=== PATIENT | male | born 1940 | race Caucasian/White ===

== ENCOUNTER 2018-05-11 11:12 | Inpatient (IN) | payer MEDICARE, BC ==
--- NOTE | 2018-05-11 11:56 | EDM.PDOC ---
ED HPI GENERAL MEDICAL PROBLEM - General Chief Complaint: General Stated Complaint: [facility] Time Seen by Provider: 05/11/18 11:30 Source of Information: Reports: EMS, Family History Limitations: Reports: Language Barrier, Physical Impairment (Previous stroke significantly limits his ability to communicate) - History of Present Illness INITIAL COMMENTS - FREE TEXT/NARRATIVE: 78-year-old male with a significant cough for the past 48 hours, low-grade fevers, and weakness. He is not taking fluids well. They were giving him some cold medicine over the last 12 hours which seemed to help, but this morning he was too weak to get out of bed and they can't take care of him. His temperature at home this morning was 100.1. He is not dyspneic or laboring to breathe, no nausea or vomiting but the family thinks his abdomen looks distended. He has an indwelling Hernandez catheter and is on Cipro since the , no urine in the bag. This morning he was not only very weak but seemed "out of it". Duration: Day(s): (Symptoms for 2 days) Associated Symptoms: Reports: Confusion, Cough, Diaphoresis (Broke out in a sweat for a period of time this morning), Fever/Chills, Malaise, Weakness - Related Data Allergies Allergy/AdvReac Type Severity Reaction Status Date / Time Sulfa (Sulfonamide Allergy Other Verified 05/11/18 11:28 Antibiotics) Home Meds: Home Meds Acetaminophen/HYDROcodone [[place] 325-5 MG] 1 tab PO ASDIRECTED PRN 05/11/18 [ History] Aspirin [Halfprin] 81 mg PO DAILY 05/11/18 [History] Ciprofloxacin HCl [Cipro] 500 mg PO ASDIRECTED 05/11/18 [History] Losartan [Cozaar] 50 mg PO DAILY 05/11/18 [History] Polyethylene Glycol 3350 [MiraLAX] 1 pack PO ASDIRECTED PRN 05/11/18 [History] Pravastatin [Pravachol] 40 mg PO DAILY 05/11/18 [History] Timolol [Betimol 0.5% Ophth Soln] 1 drop EYEBOTH DAILY 05/11/18 [History] amLODIPine Besylate [Amlodipine Besylate] 10 mg PO DAILY 05/11/18 [History] hydroCHLOROthiazide [Hydrochlorothiazide] 25 mg PO DAILY 05/11/18 [History] Past Medical History HEENT History: Reports: Glaucoma, Impaired Vision Cardiovascular History: Reports: Hypertension Gastrointestinal History: Reports: None Genitourinary History: Reports: Prostate Disorder Other Genitourinary History: 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, Musculoskeletal History: Reports: Arthritis Neurological History: Reports: TIA, Other (See Below) Other Neuro History: 2017- stroke Psychiatric History: Reports: Dementia Endocrine/Metabolic History: Reports: Obesity/BMI 30+ - Infectious Disease History Infectious Disease History: Reports: Chicken Pox - Past Surgical History Head Surgeries/Procedures: Reports: None HEENT Surgical History: Reports: None Cardiovascular Surgical History: Reports: None GI Surgical History: Reports: Cholecystectomy Endocrine Surgical History: Reports: None Neurological Surgical History: Reports: None Musculoskeletal Surgical History: Reports: Hip Replacement Dermatological Surgical History: Reports: None Social & Family History - Caffeine Use Caffeine Use: Reports: None - Recreational Drug Use Recreational Drug Use: No ED ROS GENERAL - Review of Systems Review Of Systems: See Below Constitutional: Reports: Fever, Chills, Malaise, Weakness, Decreased Appetite HEENT: Reports: Rhinitis. Denies: Throat Pain, Vision Change Respiratory: Reports: Cough. Denies: Shortness of Breath Cardiovascular: Denies: Chest Pain GI/Abdominal: Denies: Abdominal Pain, Nausea, Vomiting : Reports: Other (Decreased urine output) Skin: Reports: Diaphoresis Neurological: Reports: Other (Significant right-sided weakness and expressive aphasia due to previous stroke) ED EXAM, GENERAL - Physical Exam Exam: See Below Exam Limited By: No Limitations General Appearance: Alert, No Apparent Distress Eye Exam: Bilateral Eye: EOMI Throat/Mouth: Normal Inspection Head: Atraumatic Neck: Supple Respiratory/Chest: No Respiratory Distress, Rales (Bilateral basilar rales heard posteriorly, a few scattered expiratory wheezes) Cardiovascular: Regular Rate, Rhythm GI/Abdominal: Normal Bowel Sounds, Soft, Non-Tender Neurological: Alert Psychiatric: Normal Affect, Normal Mood Skin Exam: Warm, Dry. No: Diaphoretic Course - Vital Signs Last Recorded V/S: Last Vital Signs Temp 97.3 F 05/11/18 14:08 Pulse 72 05/11/18 14:25 Resp 16 05/11/18 14:25 BP 91/54 L 05/11/18 14:25 Pulse Ox 93 L 05/11/18 14:08 - Orders/Labs/Meds Orders: Active Orders 24 hr Category Date Time Status UA W/MICROSCOPIC [URIN] Urgent Lab 05/11/18 11:49 Ordered Medication Orders Acetaminophen (Tylenol) 650 mg PO Q4H PRN PRN Reason: Pain (Mild 1-3)/fever Hydrocodone Bitart/Acetaminophen ([place] 325-5 Mg) 1 tab PO Q4H PRN PRN Reason: Pain Albuterol (Proventil Neb Soln) 2.5 mg NEB Q4H PRN PRN Reason: Shortness Of Breath/wheezing Aspirin (Halfprin) 81 mg PO DAILY [facility] Enoxaparin Sodium (Lovenox) 40 mg SUBCUT Q24H [facility] Last Admin: 05/11/18 16:16 Dose: 40 mg Sodium Chloride (Normal Saline) 1,000 mls @ 125 mls/hr IV ASDIRECTED [facility] Last Admin: 05/11/18 14:22 Dose: 125 mls/hr Losartan Potassium (Cozaar) 50 mg PO DAILY [facility] Methylprednisolone Sodium Succinate (Solu-Medrol) 40 mg IVPUSH Q8H [facility] Last Admin: 05/11/18 14:20 Dose: 40 mg Ondansetron HCl (Zofran) 4 mg IV Q4H PRN PRN Reason: Nausea/Vomiting Oseltamivir Phosphate (Tamiflu) 75 mg PO BID [facility] Last Admin: 05/11/18 13:12 Dose: 75 mg Polyethylene Glycol (Miralax) 17 gm PO DAILY PRN PRN Reason: Constipation Pravastatin Sodium (Pravachol) 40 mg PO DAILY [facility] Sodium Chloride (Saline Flush) 10 ml FLUSH ASDIRECTED PRN PRN Reason: Keep Vein Open Timolol Maleate (Timoptic 0.5% Ophth Soln) 0 ml EYEBOTH DAILY [facility] Labs: Laboratory Tests 05/11/18 05/11/18 Range/Units 11:49 11:49 WBC 7.3 (4.5-11.0) K/uL RBC 5.95 H (4.30-5.90) M/uL Hgb 17.1 H (12.0-15.0) g/dL Hct 49.2 (40.0-54.0) % MCV 83 (80-98) fL MCH 29 (27-31) pg MCHC 35 (32-36) % Plt Count 97 L (150-400) K/uL Neut % (Auto) 77 H (36-66) % Lymph % (Auto) 12 L (24-44) % [place] % (Auto) 11 H (2-6) % Eos % (Auto) 0 L (2-4) % Baso % (Auto) 0 (0-1) % Sodium 140 (140-148) mmol/L Potassium 3.5 L (3.6-5.2) mmol/L Chloride 101 (100-108) mmol/L Carbon Dioxide 24 (21-32) mmol/L Anion Gap 18.5 H (5.0-14.0) mmol/L BUN 21 H (7-18) mg/dL Creatinine 1.2 (0.8-1.3) mg/dL Est Cr Clr Drug Dosing 45.78 mL/min Estimated GFR (MDRD) 59 L (>60) Glucose 143 H (74-106) mg/dL Calcium 8.8 (8.5-10.1) mg/dL Total Bilirubin 0.6 (0.2-1.0) mg/dL AST 40 H (15-37) U/L ALT 45 (12-78) U/L Alkaline Phosphatase 61 (46-116) U/L Total Protein 7.2 (6.4-8.2) g/dL Albumin 3.1 L (3.4-5.0) g/dL Globulin 4.1 H (2.3-3.5) g/dL Albumin/Globulin Ratio 0.8 L (1.2-2.2) Meds: Medications Generic Name Dose Route Start Last Admin Trade Name Freq PRN Reason Stop Dose Admin Acetaminophen 650 mg 05/11/18 14:00 Tylenol PO Q4H PRN Pain (Mild 1-3)/fever Hydrocodone Bitart/Acetaminophen 1 tab 05/11/18 14:00 [place] 325-5 Mg PO Q4H PRN Pain Albuterol 2.5 mg 05/11/18 14:00 Proventil Neb Soln NEB Q4H PRN Shortness Of Breath/wheezing Aspirin 81 mg 05/12/18 09:00 Halfprin PO DAILY JOHN Enoxaparin Sodium 40 mg 05/11/18 16:00 05/11/18 16:16 Lovenox SUBCUT 40 mg Q24H JOHN Administration Sodium Chloride 1,000 mls @ 125 mls/hr 05/11/18 14:00 05/11/18 14:22 Normal Saline IV 125 mls/hr ASDIRECTED JOHN Administration Losartan Potassium 50 mg 05/12/18 09:00 Cozaar PO DAILY JOHN Methylprednisolone Sodium Succinate 40 mg 05/11/18 14:00 05/11/18 14:20 Solu-Medrol IVPUSH 40 mg Q8H JOHN Administration Ondansetron HCl 4 mg 05/11/18 14:00 Zofran IV Q4H PRN Nausea/Vomiting Oseltamivir Phosphate 75 mg 05/11/18 13:00 05/11/18 13:12 Tamiflu PO 75 mg BID JOHN Administration Polyethylene Glycol 17 gm 05/11/18 14:00 Miralax PO DAILY PRN Constipation Pravastatin Sodium 40 mg 05/12/18 09:00 Pravachol PO DAILY JOHN Sodium Chloride 10 ml 05/11/18 14:00 Saline Flush FLUSH ASDIRECTED PRN Keep Vein Open Timolol Maleate 0 ml 05/12/18 09:00 Timoptic 0.5% Ophth Soln EYEBOTH DAILY JOHN Discontinued Medications Generic Name Dose Route Start Last Admin Trade Name Freq PRN Reason Stop Dose Admin Sodium Chloride 1,000 mls @ 1,000 mls/hr 05/11/18 12:00 05/11/18 12:09 Normal Saline IV 1,000 mls/hr ASDIRECTED JOHN Administration - Re-Assessments/Exams Free Text/Narrative Re-Assessment/Exam: 05/11/18 11:55 Patient will be given 1 L normal saline, a portable chest x-ray will be obtained along with a CBC CMP and UA when he starts making urine. 05/11/18 12:28 Influenza antigens were obtained, patient was positive for influenza A. Chest x- ray was negative other than some mild cardiomegaly. 05/11/18 12:50 Rest of the labs returned other than the UA which she has not produced at this point. White count was normal, electrolytes reasonable. BUN is slightly elevated and GFR is mildly decreased, possibly from dehydration. I discussed his condition with the family and ultimately with Dr. Mancini of the hospitalist service, he'll be admitted for symptom treatment and strengthening as well as fluids. Departure - Departure Time of Disposition: 13:30 Disposition: Admitted As Inpatient 66 Condition: Fair Clinical Impression: Influenza A, Weakness, Dehydration, mild - Discharge Information - My Orders Last 24 Hours: My Active Orders 05/11/18 11:49 UA W/MICROSCOPIC [URIN] Urgent - Assessment/Plan Last 24 Hours: My Active Orders 05/11/18 11:49 UA W/MICROSCOPIC [URIN] Urgent
[2018-05-11] MEDS ORDERED: Sodium Chloride 0.9% 1,000 ML IV SCH (12:00)
--- NOTE | 2018-05-11 12:09 | CRLCR ---
INDICATION: Cough, fever, weakness COMPARISON: None available. FINDINGS: An erect single view of the chest was obtained at 1158 hours. The lungs are clear despite shallow inspiration. No focal or diffuse infiltrates are present. The heart is mildly enlarged. There is mild tortuosity of the descending thoracic aorta. The osseous structures are normal in appearance for the patient`s age. IMPRESSION: No active disease seen in the chest. Mild cardiomegaly. Dictated by Fabian Medina MD @ May 11 2018 12:06PM Signed by Dr. Fabian Medina @ May 11 2018 12:07PM
--- NOTE | 2018-05-11 12:52 | PCM.HP ---
H&P History of Present Illness - General Date of Service: 05/11/18 Admit Problem/Dx: Admission Diagnosis/Problem Admission Diagnosis/Problem Influenza A with respiratory manifestations Source of Information: Family, Provider, RN Notes Reviewed History Limitations: Reports: Other (Expressive a fascia secondary to CVA) - History of Present Illness Initial Comments - Free Text/Narative: Mr. Monroy is a 78-year-old gentleman who is admitted through the emergency department with weakness, shortness of breath, cough, dehydration, secondary to influenza A. He has not felt well over the past 24 hours with progressive symptoms as noted also has been found to have fever and decrease in appetite. On evaluation in the emergency department white blood cell count is normal and chest x-ray shows no obvious infiltrates. Influenza A antigen was found to be positive. Most of history was obtained from the family, patient is unable to provide significant information concerning symptoms or review of systems because of his severe expressive aphasia. - Related Data Allergies/Adverse Reactions: Allergies Allergy/AdvReac Type Severity Reaction Status Date / Time Sulfa (Sulfonamide Allergy Other Verified 05/11/18 11:28 Antibiotics) Home Medications: Home Meds Acetaminophen/HYDROcodone [[place] 325-5 MG] 1 tab PO ASDIRECTED PRN 05/11/18 [ History] Aspirin [Halfprin] 81 mg PO DAILY 05/11/18 [History] Ciprofloxacin HCl [Cipro] 500 mg PO ASDIRECTED 05/11/18 [History] Losartan [Cozaar] 50 mg PO DAILY 05/11/18 [History] Polyethylene Glycol 3350 [MiraLAX] 1 pack PO ASDIRECTED PRN 05/11/18 [History] Pravastatin [Pravachol] 40 mg PO DAILY 05/11/18 [History] Timolol [Betimol 0.5% Ophth Soln] 1 drop EYEBOTH DAILY 05/11/18 [History] amLODIPine Besylate [Amlodipine Besylate] 10 mg PO DAILY 05/11/18 [History] hydroCHLOROthiazide [Hydrochlorothiazide] 25 mg PO DAILY 05/11/18 [History] Past Medical History HEENT History: Reports: Glaucoma, Impaired Vision Cardiovascular History: Reports: Hypertension Gastrointestinal History: Reports: None Genitourinary History: Reports: Prostate Disorder Other Genitourinary History: 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, Musculoskeletal History: Reports: Arthritis Neurological History: Reports: TIA, Other (See Below) Other Neuro History: 2017- stroke Psychiatric History: Reports: Dementia Endocrine/Metabolic History: Reports: Obesity/BMI 30+ - Infectious Disease History Infectious Disease History: Reports: Chicken Pox - Past Surgical History Head Surgeries/Procedures: Reports: None HEENT Surgical History: Reports: None Cardiovascular Surgical History: Reports: None GI Surgical History: Reports: Cholecystectomy Endocrine Surgical History: Reports: None Neurological Surgical History: Reports: None Musculoskeletal Surgical History: Reports: Hip Replacement Dermatological Surgical History: Reports: None Social & Family History - Caffeine Use Caffeine Use: Reports: None - Recreational Drug Use Recreational Drug Use: No H&P Review of Systems - Review of Systems: Review Of Systems: Unable To Obtain General: Reports: ROS unobtainable (Severe expressive aphasia) Exam - Exam Exam: See Below - Vital Signs Vital Signs: Last Vital Signs Temp 97.2 F 05/11/18 11:18 Pulse 86 05/11/18 11:18 Resp 16 05/11/18 11:18 BP 94/55 L 05/11/18 11:18 Pulse Ox 94 L 05/11/18 11:18 Weight: 265 lb - Exam Quality Assessment: Urinary Catheter (Present on admission), DVT Prophylaxis General: Alert, Oriented, Cooperative, Moderate Distress HEENT: Conjunctiva Clear, Hearing Intact, Normal Nasal Septum, Posterior Pharynx Clear, Pupils Equal Neck: Supple, Trachea Midline, +2 Carotid Pulse wo Bruit Lungs: Normal Respiratory Effort, Rhonchi, Wheezing. No: Crackles, Rales, Rub, Stridor Cardiovascular: Regular Rate, Regular Rhythm, Normal S1, Normal S2. No: Systolic Murmur, Diastolic Murmur GI/Abdominal Exam: Soft, Non-Tender, No Organomegaly, No Distention Back Exam: Normal Inspection, Full Range of Motion Extremities: Non-Tender, No Pedal Edema Skin: Warm, Dry, Intact Neurological: Cranial Nerves Intact, Normal Tone, Sensation Intact. No: Normal Speech Neuro Extensive - Mental Status: Alert, Normal Mood/Affect - Patient Data Lab Results Last 24 hrs: Laboratory Results - last 24 hr 05/11/18 05/11/18 Range/Units 11:49 11:49 WBC 7.3 (4.5-11.0) K/uL RBC 5.95 H (4.30-5.90) M/uL Hgb 17.1 H (12.0-15.0) g/dL Hct 49.2 (40.0-54.0) % MCV 83 (80-98) fL MCH 29 (27-31) pg MCHC 35 (32-36) % Plt Count 97 L (150-400) K/uL Neut % (Auto) 77 H (36-66) % Lymph % (Auto) 12 L (24-44) % [place] % (Auto) 11 H (2-6) % Eos % (Auto) 0 L (2-4) % Baso % (Auto) 0 (0-1) % Sodium 140 (140-148) mmol/L Potassium 3.5 L (3.6-5.2) mmol/L Chloride 101 (100-108) mmol/L Carbon Dioxide 24 (21-32) mmol/L Anion Gap 18.5 H (5.0-14.0) mmol/L BUN 21 H (7-18) mg/dL Creatinine 1.2 (0.8-1.3) mg/dL Est Cr Clr Drug Dosing 45.78 mL/min Estimated GFR (MDRD) 59 L (>60) Glucose 143 H (74-106) mg/dL Calcium 8.8 (8.5-10.1) mg/dL Total Bilirubin 0.6 (0.2-1.0) mg/dL AST 40 H (15-37) U/L ALT 45 (12-78) U/L Alkaline Phosphatase 61 (46-116) U/L Total Protein 7.2 (6.4-8.2) g/dL Albumin 3.1 L (3.4-5.0) g/dL Globulin 4.1 H (2.3-3.5) g/dL Albumin/Globulin Ratio 0.8 L (1.2-2.2) Result Diagrams: 05/11/18 11:49 05/11/18 11:49 Ady Results Last 24 hrs: Microbiology 05/11/18 12:13 Influenza Type A Antigen Screen - Final Nasal Aspirate, Unspecified Positive Influenza A Ag Influenza Type B Antigen Screen - Final NEGATIVE INFLUENZA B VIRUS AG *Q Meaningful Use (ADM) - VTE Risk Assess *Q Each Risk Factor Represents 1 Point: Obesity ( BMI > 25 kg/m2) Total Score 1 Point Risk Factors: 1 Each Risk Factor Represents 2 Points: None Total Score 2 Point Risk Factors: 0 Each Risk Factor Represents 3 Points: Age 75 Years or Greater Total Score 3 Point Risk Factors: 3 Each Risk Factor Represents 5 Points: None Total Score 5 Point Risk Factors: 0 Venous Thromboembolism Risk Factor Score *Q: 4 Problem List Initiated/Reviewed/Updated: Yes Orders Last 24hrs: Active Orders 24 hr Category Date Time Status Patient Status Manage Transfer [TRANSFER] Routine ADT 05/11/18 12:47 Active UA W/MICROSCOPIC [URIN] Urgent Lab 05/11/18 11:49 Ordered Oseltamivir [Tamiflu] Med 05/11/18 13:00 Ordered 75 mg PO BID Sodium Chloride 0.9% [Normal Saline] 1,000 ml Med 05/11/18 12:00 Active IV ASDIRECTED Resuscitation Status Routine Resus Stat 05/11/18 12:48 Ordered Medication Orders Sodium Chloride (Normal Saline) 1,000 mls @ 1,000 mls/hr IV ASDIRECTED JOHN Last Admin: 05/11/18 12:09 Dose: 1,000 mls/hr Oseltamivir Phosphate (Tamiflu) 75 mg PO BID [facility] Assessment/Plan Comment:: ASSESSMENT AND PLAN INFLUENZA A-marked weakness with fever cough and shortness of breath. -IV fluids for hydration -Tylenol as needed for fever -Tamiflu 750 mg by mouth twice a day 5 days -Physical therapy consult -Nebulized albuterol as needed -Solu-Medrol 40 mg IV every 8 hours HISTORY OF CVA-residual expressive aphasia and left-sided weakness INDWELLING HERNANDEZ CATHETER-present on admission -Urinalysis pending MAINTENANCE ISSUES -DVT prophylaxis; Lovenox 40 mg subcutaneous daily -GI prophylaxis; not indicated -Hernandez catheter; chronic indwelling catheter -Nutrition; regular diet -Nicotine dependence; not required CODE STATUS-FULL CODE ADMISSION STATUS-patient will be admitted to inpatient status, expect at least a 2 night hospital stay for evaluation and management of problems as outlined above. At the time of this admission I do not reasonably expected evaluation and management of this problem will require more than a 96 hour hospital stay. DISPOSITION-anticipate discharge to home after the hospital stay. PRIMARY CARE PROVIDER-the [facility]
[2018-05-11] MEDS: Oseltamivir 75 MG Cap PO SCH ×2 (13:12→21:36)
[2018-05-11] MEDS ORDERED: Albuterol 0.083% 2.5 MG/3 ML Neb Soln NEB PRN (14:00)
[2018-05-11] MEDS ORDERED: Acetaminophen 325 MG Tab PO PRN (14:00)
[2018-05-11] MEDS ORDERED: Sodium Chloride 0.9% 10 ML Syringe FLUSH PRN (14:00)
[2018-05-11] MEDS ORDERED: Ondansetron 4 MG/2 ML SDV IV PRN (14:00)
[2018-05-11] MEDS ORDERED: Polyethylene Glycol 3350 Powder 17 GM Packet PO PRN (14:00)
[2018-05-11] MEDS ORDERED: Acetaminophen/HYDROcodone 325-5 MG Tab PO PRN (14:00)
[2018-05-11] MEDS: methylPREDNISolone Sodium Succinate 40 MG/1 ML SDV IVPUSH SCH ×2 (14:20→21:36)
[2018-05-11] MEDS: Sodium Chloride 0.9% 1,000 ML IV SCH ×2 (14:22→21:37)
[2018-05-11] MEDS ORDERED: Enoxaparin 40 MG/0.4 ML Syringe SUBCUT SCH (16:00)
[2018-05-12] MEDS: methylPREDNISolone Sodium Succinate 40 MG/1 ML SDV IVPUSH SCH (05:22)
[2018-05-12] MEDS: Sodium Chloride 0.9% 1,000 ML IV SCH (05:22)
[2018-05-12] MEDS ORDERED: Potassium Chloride 20 MEQ, Lidocaine 1% 2 ML in Sodium Chloride 0.9% 100 ML IV ONE (08:15)
[2018-05-12] MEDS: Oseltamivir 75 MG Cap PO SCH (08:53)
[2018-05-12] MEDS ORDERED: Aspirin 81 MG Tab.EC PO SCH (09:00)
[2018-05-12] MEDS ORDERED: Pravastatin 20 MG Tab PO SCH (09:00)
[2018-05-12] MEDS ORDERED: Timolol Maleate 0.5% Ophth Soln 5 ML Bottle EYEBOTH SCH (09:00)
[2018-05-12] MEDS ORDERED: Losartan 50 MG Tab PO SCH (09:00)
[2018-05-12] MEDS ORDERED: Potassium Chloride 20 MEQ Tab.ER PO ONE (10:00)
[2018-05-12] MEDS ORDERED: Magnesium Sulfate/Water 2 GM in Premix Bag 1 BAG IV SCH (10:00)
[2018-05-12] MEDS ORDERED: Magnesium Oxide 400 MG Tab PO SCH (10:00)
--- NOTE | 2018-05-12 10:01 | PCM.PN ---
- General Info Date of Service: 05/12/18 Subjective Update: Mr. Monroy appears improved today compared to yesterday, sitting up in the chair and more interactive. Speech remains minimal because of his long-standing expressive aphasia. He is able to respond to questions with simple answers. Denies significant shortness of breath this morning, cough appears to be improved. Vital signs have been stable and he has remained afebrile. Functional Status: Reports: Tolerating Diet - Review of Systems General: Reports: Weakness. Denies: Fever, Chills Pulmonary: Reports: No Symptoms Cardiovascular: Reports: No Symptoms Gastrointestinal: Reports: No Symptoms - Patient Data Vitals - Most Recent: Last Vital Signs Temp 97.5 F 05/12/18 08:03 Pulse 73 05/12/18 08:03 Resp 16 05/12/18 08:03 BP 156/77 H 05/12/18 08:53 Pulse Ox 91 L 05/12/18 08:03 Weight - Most Recent: 267 lb 8 oz I&O - Last 24 Hours: Intake & Output 05/11/18 05/12/18 05/12/18 22:59 06:59 14:59 Intake Total 1894 Output Total 1250 600 Balance -1250 1294 Lab Results Last 24 Hours: Laboratory Results - last 24 hr 05/11/18 05/11/18 05/11/18 Range/Units 11:49 11:49 16:18 WBC 7.3 (4.5-11.0) K/uL RBC 5.95 H (4.30-5.90) M/uL Hgb 17.1 H (12.0-15.0) g/dL Hct 49.2 (40.0-54.0) % MCV 83 (80-98) fL MCH 29 (27-31) pg MCHC 35 (32-36) % Plt Count 97 L (150-400) K/uL Neut % (Auto) 77 H (36-66) % Lymph % (Auto) 12 L (24-44) % [place] % (Auto) 11 H (2-6) % Eos % (Auto) 0 L (2-4) % Baso % (Auto) 0 (0-1) % Sodium 140 (140-148) mmol/L Potassium 3.5 L (3.6-5.2) mmol/L Chloride 101 (100-108) mmol/L Carbon Dioxide 24 (21-32) mmol/L Anion Gap 18.5 H (5.0-14.0) mmol/L BUN 21 H (7-18) mg/dL Creatinine 1.2 (0.8-1.3) mg/dL Est Cr Clr Drug Dosing 45.78 mL/min Estimated GFR (MDRD) 59 L (>60) Glucose 143 H (74-106) mg/dL Calcium 8.8 (8.5-10.1) mg/dL Magnesium (1.8-2.4) mg/dL Total Bilirubin 0.6 (0.2-1.0) mg/dL AST 40 H (15-37) U/L ALT 45 (12-78) U/L Alkaline Phosphatase 61 (46-116) U/L Total Protein 7.2 (6.4-8.2) g/dL Albumin 3.1 L (3.4-5.0) g/dL Globulin 4.1 H (2.3-3.5) g/dL Albumin/Globulin Ratio 0.8 L (1.2-2.2) Urine Color Yellow Urine Appearance Clear Urine pH 5.0 (4.5-8.0) Ur Specific [place] 1.015 (1.008-1.030) Urine Protein Negative (NEGATIVE) mg/dL Urine Glucose (UA) Normal (NEGATIVE) mg/dL Urine Ketones Negative (NEGATIVE) mg/dL Urine Occult Blood Large (NEGATIVE) Urine Nitrite Negative (NEGAITVE) Urine Bilirubin Negative (NEGATIVE) Urine Urobilinogen Normal (NORMAL) mg/dL Ur Leukocyte Esterase Negative (NEGATIVE) Urine RBC 5-10 H (0-5) Urine WBC 0-5 (0-5) Ur Epithelial Cells Not seen Amorphous Sediment Not seen Urine Bacteria Many Urine Mucus Not seen 05/12/18 05/12/18 Range/Units 05:48 05:48 WBC 5.5 (4.5-11.0) K/uL RBC 5.92 H (4.30-5.90) M/uL Hgb 16.4 H (12.0-15.0) g/dL Hct 49.1 (40.0-54.0) % MCV 83 (80-98) fL MCH 28 (27-31) pg MCHC 33 (32-36) % Plt Count 165 (150-400) K/uL Neut % (Auto) 85 H (36-66) % Lymph % (Auto) 12 L (24-44) % [place] % (Auto) 3 (2-6) % Eos % (Auto) 0 L (2-4) % Baso % (Auto) 0 (0-1) % Sodium 141 (140-148) mmol/L Potassium 3.3 L (3.6-5.2) mmol/L Chloride 104 (100-108) mmol/L Carbon Dioxide 24 (21-32) mmol/L Anion Gap 16.3 H (5.0-14.0) mmol/L BUN 19 H (7-18) mg/dL Creatinine 0.9 (0.8-1.3) mg/dL Est Cr Clr Drug Dosing 63.09 mL/min Estimated GFR (MDRD) > 60 (>60) Glucose 179 H (74-106) mg/dL Calcium 8.5 (8.5-10.1) mg/dL Magnesium 1.5 L (1.8-2.4) mg/dL Total Bilirubin (0.2-1.0) mg/dL AST (15-37) U/L ALT (12-78) U/L Alkaline Phosphatase (46-116) U/L Total Protein (6.4-8.2) g/dL Albumin (3.4-5.0) g/dL Globulin (2.3-3.5) g/dL Albumin/Globulin Ratio (1.2-2.2) Urine Color Urine Appearance Urine pH (4.5-8.0) Ur Specific [place] (1.008-1.030) Urine Protein (NEGATIVE) mg/dL Urine Glucose (UA) (NEGATIVE) mg/dL Urine Ketones (NEGATIVE) mg/dL Urine Occult Blood (NEGATIVE) Urine Nitrite (NEGAITVE) Urine Bilirubin (NEGATIVE) Urine Urobilinogen (NORMAL) mg/dL Ur Leukocyte Esterase (NEGATIVE) Urine RBC (0-5) Urine WBC (0-5) Ur Epithelial Cells Amorphous Sediment Urine Bacteria Urine Mucus Ady Results Last 24 Hours: Microbiology 05/11/18 12:13 Influenza Type A Antigen Screen - Final Nasal Aspirate, Unspecified Positive Influenza A Ag Influenza Type B Antigen Screen - Final NEGATIVE INFLUENZA B VIRUS AG Med Orders - Current: Current Medications Acetaminophen (Tylenol) 650 mg PO Q4H PRN PRN Reason: Pain (Mild 1-3)/fever Hydrocodone Bitart/Acetaminophen ([place] 325-5 Mg) 1 tab PO Q4H PRN PRN Reason: Pain Albuterol (Proventil Neb Soln) 2.5 mg NEB Q4H PRN PRN Reason: Shortness Of Breath/wheezing Aspirin (Halfprin) 81 mg PO DAILY [facility] Last Admin: 05/12/18 08:53 Dose: 81 mg Enoxaparin Sodium (Lovenox) 40 mg SUBCUT Q24H [facility] Last Admin: 05/11/18 16:16 Dose: 40 mg Magnesium Sulfate 2 gm/ Premix 50 mls @ 25 mls/hr IV Q6H [facility] Stop: 05/12/18 17:59 Potassium Chloride 20 meq/Lidocaine HCl 2 ml/ Sodium Chloride 112 mls @ 56 mls/ hr IV Q2H [facility] Stop: 05/12/18 13:59 Losartan Potassium (Cozaar) 50 mg PO DAILY [facility] Last Admin: 05/12/18 08:53 Dose: 50 mg Magnesium Oxide (Magnesium Oxide) 400 mg PO BID [facility] Ondansetron HCl (Zofran) 4 mg IV Q4H PRN PRN Reason: Nausea/Vomiting Oseltamivir Phosphate (Tamiflu) 75 mg PO BID [facility] Stop: 05/14/18 09:01 Last Admin: 05/12/18 08:53 Dose: 75 mg Polyethylene Glycol (Miralax) 17 gm PO DAILY PRN PRN Reason: Constipation Potassium Chloride (Klor-Con M20) 40 meq PO ONETIME ONE Stop: 05/12/18 10:01 Pravastatin Sodium (Pravachol) 40 mg PO DAILY [facility] Last Admin: 05/12/18 08:52 Dose: 40 mg Sodium Chloride (Saline Flush) 10 ml FLUSH ASDIRECTED PRN PRN Reason: Keep Vein Open Timolol Maleate (Timoptic 0.5% Ophth Soln) 0 ml EYEBOTH DAILY [facility] Last Admin: 05/12/18 08:53 Dose: 1 each Discontinued Medications Sodium Chloride (Normal Saline) 1,000 mls @ 1,000 mls/hr IV ASDIRECTED [facility] Last Admin: 05/11/18 12:09 Dose: 1,000 mls/hr Sodium Chloride (Normal Saline) 1,000 mls @ 125 mls/hr IV ASDIRECTED [facility] Last Admin: 05/12/18 05:22 Dose: 125 mls/hr Potassium Chloride 20 meq/Lidocaine HCl 2 ml/ Sodium Chloride 112 mls @ 28 mls/ hr IV ONETIME ONE Stop: 05/12/18 12:14 Methylprednisolone Sodium Succinate (Solu-Medrol) 40 mg IVPUSH Q8H [facility] Last Admin: 05/12/18 05:22 Dose: 40 mg - Exam Quality Assessment: DVT Prophylaxis General: Alert, Cooperative, No Acute Distress Lungs: Clear to Auscultation, Normal Respiratory Effort Cardiovascular: Regular Rate, Regular Rhythm, Murmurs GI/Abdominal Exam: Soft, Non-Tender, No Organomegaly, No Distention Extremities: Non-Tender, Pedal Edema - Problem List Review Problem List Initiated/Reviewed/Updated: Yes - My Orders Last 24 Hours: My Active Orders 05/11/18 12:48 Resuscitation Status Routine 05/11/18 13:00 Oseltamivir [Tamiflu] 75 mg PO BID 05/11/18 13:37 PT Evaluation and Treatment [CONS] Routine 05/11/18 14:00 Patient Status [ADT] Routine Ambulate [RC] QID Height and Weight [RC] DAILY Intake and Output [RC] QSHIFT Notify Provider Vital Signs [RC] ASDIRECTED Oxygen Therapy [RC] .PRN Peripheral IV Care [RC] QSHIFT RT Aerosol Therapy [RC] ASDIRECTED Up With Assistance [RC] ASDIRECTED Up to Chair [RC] QID VTE/DVT Education [RC] Per Unit Routine Vital Signs [RC] Q4H Acetaminophen [Tylenol] 650 mg PO Q4H PRN Acetaminophen/HYDROcodone [[place] 325-5 MG] 1 tab PO Q4H PRN Albuterol [Proventil Neb Soln] 2.5 mg NEB Q4H PRN Ondansetron [Zofran] 4 mg IV Q4H PRN Polyethylene Glycol 3350 [MiraLAX] 17 gm PO DAILY PRN Sodium Chloride 0.9% [Saline Flush] 10 ml FLUSH ASDIRECTED PRN Peripheral IV Insertion Adult [OM.PC] Routine 05/11/18 16:00 Enoxaparin [Lovenox] 40 mg SUBCUT Q24H 05/11/18 Lunch Regular Diet [DIET] 05/12/18 09:00 Aspirin [Halfprin] 81 mg PO DAILY Losartan [Cozaar] 50 mg PO DAILY Pravastatin [Pravachol] 40 mg PO DAILY Timolol Maleate [Timoptic 0.5% Ophth Soln] 0 ml EYEBOTH DAILY 05/12/18 09:57 Convert IV to Saline Lock [OM.PC] Routine 05/12/18 10:00 Magnesium Oxide 400 mg PO BID Magnesium Sulfate/Water [Magnesium Sulfate 2 GM in Water 50 ML] 2 gm Premix Bag 1 bag IV Q6H Potassium Chloride 20 meq Lidocaine 1% [Xylocaine 1%] 2 ml Sodium Chloride 0.9 % [Normal Saline] 100 ml IV Q2H Potassium Chloride [Klor-Con M20] 40 meq PO ONETIME ONE 05/13/18 05:00 BASIC METABOLIC PANEL,BMP [CHEM] Timed MAGNESIUM [CHEM] Timed - Plan Plan:: ASSESSMENT AND PLAN INFLUENZA A-marked weakness with fever cough and shortness of breath. Improved since admission with hydration, sitting in chair and is more interactive today -Saline lock IV -Tylenol as needed for fever -Tamiflu 750 mg by mouth twice a day 5 days -Physical therapy consult and follow-up -Nebulized albuterol as needed -Discontinue IV Solu-Medrol HISTORY OF CVA-residual expressive aphasia and left-sided weakness INDWELLING ESCUDERO CATHETER-present on admission. Urinalysis clear showing no evidence of current infection MAINTENANCE ISSUES -DVT prophylaxis; Lovenox 40 mg subcutaneous daily -GI prophylaxis; not indicated -Escudero catheter; chronic indwelling catheter -Nutrition; regular diet -Nicotine dependence; not required CODE STATUS-FULL CODE ADMISSION STATUS-patient will be admitted to inpatient status, expect at least a 2 night hospital stay for evaluation and management of problems as outlined above. At the time of this admission I do not reasonably expected evaluation and management of this problem will require more than a 96 hour hospital stay. DISPOSITION-anticipate discharge to home tomorrow PRIMARY CARE PROVIDER-[facility]
[2018-05-12] MEDS: Potassium Chloride 20 MEQ, Lidocaine 1% 2 ML in Sodium Chloride 0.9% 100 ML IV SCH ×2 (10:47→13:09)
--- NOTE | 2018-05-12 14:04 | PCM.DCSUM1 ---
Discharge Summary - Hospital Course Brief History: Mr. Monroy is a 78-year-old gentleman who was admitted through the emergency department with weakness and dehydration secondary to influenza A. - Discharge Data Discharge Date: 05/12/18 Discharge Disposition: Home, Self-Care 01 Condition: Fair - Discharge Diagnosis/Problem(s) (1) Influenza A SNOMED Code(s): 564091950 ICD Code: J10.1 - FLU DUE TO OTH IDENT INFLUENZA VIRUS W OTH RESP MANIFEST Status: Acute Current Visit: Yes (2) Weakness SNOMED Code(s): 35980572 ICD Code: R53.1 - WEAKNESS Status: Acute Current Visit: Yes (3) Dehydration, mild SNOMED Code(s): 9270516961114 ICD Code: E86.0 - DEHYDRATION Status: Acute Current Visit: Yes - Patient Summary/Data Consults: Consultations 05/11/18 13:37 PT Evaluation and Treatment [CONS] Routine Please Evaluate and Treat. PT Reason for Consult: Weakness, influenza A This query below is only for informational purposes and is not editable. Admission Diagnosis/Problem: Influenza A with respiratory manifestations Hospital Course: Mr. Monroy is a 78-year-old gentleman who is admitted through the emergency department with weakness, shortness of breath, cough, dehydration, secondary to influenza A. He has not felt well over the past 24 hours with progressive symptoms as noted, also has been found to have fever and decrease in appetite. On evaluation in the emergency department white blood cell count is normal and chest x-ray shows no obvious infiltrates. Influenza A antigen was found to be positive. Most of history was obtained from the family, patient is unable to provide significant information concerning symptoms or review of systems because of his severe expressive aphasia. On admission he was given IV fluids for hydration and started on Tamiflu 75 mg twice daily. By the following morning he was significantly improved, tolerated regular diet and was able to walk in the hallways using his walker. He initially had been admitted as an inpatient, expecting at least a 2 night hospital stay. He improved much more rapidly than originally anticipated and will be discharged home today, family is in agreement with discharge plan. Activity will be as tolerated and he will resume usual diet. He will complete a five-day course of Tamiflu, prescription will be sent to the pharmacy. Follow- up appointment with his primary care provider within one week. - Patient Instructions Diet: Usual Diet as Tolerated Activity: As Tolerated Other/Special Instructions: Please schedule follow-up appointment with primary care provider within one week. - Discharge Plan *PRESCRIPTION DRUG MONITORING PROGRAM REVIEWED*: Not Applicable *COPY OF PRESCRIPTION DRUG MONITORING REPORT IN PATIENT YAS: Not Applicable Prescriptions/Med Rec: Oseltamivir [Tamiflu] 75 mg PO BID #7 cap Home Medications: Home Meds Acetaminophen/HYDROcodone [[place] 325-5 MG] 1 tab PO ASDIRECTED PRN 05/11/18 [ History] Aspirin [Halfprin] 81 mg PO DAILY 05/11/18 [History] Losartan [Cozaar] 50 mg PO DAILY 05/11/18 [History] Polyethylene Glycol 3350 [MiraLAX] 1 pack PO ASDIRECTED PRN 05/11/18 [History] Pravastatin [Pravachol] 40 mg PO DAILY 05/11/18 [History] Timolol [Betimol 0.5% Ophth Soln] 1 drop EYEBOTH DAILY 05/11/18 [History] amLODIPine Besylate [Amlodipine Besylate] 10 mg PO DAILY 05/11/18 [History] hydroCHLOROthiazide [Hydrochlorothiazide] 25 mg PO DAILY 05/11/18 [History] Oseltamivir [Tamiflu] 75 mg PO BID #7 cap 05/12/18 [Rx] Referrals: Bernadette Walton MD [Primary Care Provider] - - Discharge Summary/Plan Comment DC Time >30 min.: No - Patient Data Vitals - Most Recent: Last Vital Signs Temp 96.7 F 05/12/18 11:23 Pulse 77 05/12/18 11:23 Resp 16 05/12/18 11:23 BP 134/79 05/12/18 11:23 Pulse Ox 95 05/12/18 11:23 Weight - Most Recent: 267 lb 8 oz I&O - Last 24 hours: Intake & Output 05/11/18 05/12/18 05/12/18 22:59 06:59 14:59 Intake Total 1894 792 Output Total 1250 600 Balance -1250 1294 792 Lab Results - Last 24 hrs: Laboratory Results - last 24 hr 05/11/18 05/12/18 05/12/18 Range/Units 16:18 05:48 05:48 WBC 5.5 (4.5-11.0) K/uL RBC 5.92 H (4.30-5.90) M/uL Hgb 16.4 H (12.0-15.0) g/dL Hct 49.1 (40.0-54.0) % MCV 83 (80-98) fL MCH 28 (27-31) pg MCHC 33 (32-36) % Plt Count 165 (150-400) K/uL Neut % (Auto) 85 H (36-66) % Lymph % (Auto) 12 L (24-44) % [place] % (Auto) 3 (2-6) % Eos % (Auto) 0 L (2-4) % Baso % (Auto) 0 (0-1) % Sodium 141 (140-148) mmol/L Potassium 3.3 L (3.6-5.2) mmol/L Chloride 104 (100-108) mmol/L Carbon Dioxide 24 (21-32) mmol/L Anion Gap 16.3 H (5.0-14.0) mmol/L BUN 19 H (7-18) mg/dL Creatinine 0.9 (0.8-1.3) mg/dL Est Cr Clr Drug Dosing 63.09 mL/min Estimated GFR (MDRD) > 60 (>60) Glucose 179 H (74-106) mg/dL Calcium 8.5 (8.5-10.1) mg/dL Magnesium 1.5 L (1.8-2.4) mg/dL Urine Color Yellow Urine Appearance Clear Urine pH 5.0 (4.5-8.0) Ur Specific [place] 1.015 (1.008-1.030) Urine Protein Negative (NEGATIVE) mg/dL Urine Glucose (UA) Normal (NEGATIVE) mg/dL Urine Ketones Negative (NEGATIVE) mg/dL Urine Occult Blood Large (NEGATIVE) Urine Nitrite Negative (NEGAITVE) Urine Bilirubin Negative (NEGATIVE) Urine Urobilinogen Normal (NORMAL) mg/dL Ur Leukocyte Esterase Negative (NEGATIVE) Urine RBC 5-10 H (0-5) Urine WBC 0-5 (0-5) Ur Epithelial Cells Not seen Amorphous Sediment Not seen Urine Bacteria Many Urine Mucus Not seen KEEGAN Results - Last 24 hrs: Microbiology 05/11/18 12:13 Influenza Type A Antigen Screen - Final Nasal Aspirate, Unspecified Positive Influenza A Ag Influenza Type B Antigen Screen - Final NEGATIVE INFLUENZA B VIRUS AG Med Orders - Current: Current Medications Acetaminophen (Tylenol) 650 mg PO Q4H PRN PRN Reason: Pain (Mild 1-3)/fever Hydrocodone Bitart/Acetaminophen ([place] 325-5 Mg) 1 tab PO Q4H PRN PRN Reason: Pain Albuterol (Proventil Neb Soln) 2.5 mg NEB Q4H PRN PRN Reason: Shortness Of Breath/wheezing Aspirin (Halfprin) 81 mg PO DAILY [facility] Last Admin: 05/12/18 08:53 Dose: 81 mg Enoxaparin Sodium (Lovenox) 40 mg SUBCUT Q24H [facility] Last Admin: 05/11/18 16:16 Dose: 40 mg Magnesium Sulfate 2 gm/ Premix 50 mls @ 25 mls/hr IV Q6H [facility] Stop: 05/12/18 17:59 Last Admin: 05/12/18 13:08 Dose: 25 mls/hr Losartan Potassium (Cozaar) 50 mg PO DAILY [facility] Last Admin: 05/12/18 08:53 Dose: 50 mg Magnesium Oxide (Magnesium Oxide) 400 mg PO BID [facility] Last Admin: 05/12/18 10:46 Dose: 400 mg Ondansetron HCl (Zofran) 4 mg IV Q4H PRN PRN Reason: Nausea/Vomiting Oseltamivir Phosphate (Tamiflu) 75 mg PO BID [facility] Stop: 05/14/18 09:01 Last Admin: 05/12/18 08:53 Dose: 75 mg Polyethylene Glycol (Miralax) 17 gm PO DAILY PRN PRN Reason: Constipation Pravastatin Sodium (Pravachol) 40 mg PO DAILY [facility] Last Admin: 05/12/18 08:52 Dose: 40 mg Sodium Chloride (Saline Flush) 10 ml FLUSH ASDIRECTED PRN PRN Reason: Keep Vein Open Timolol Maleate (Timoptic 0.5% Ophth Soln) 0 ml EYEBOTH DAILY [facility] Last Admin: 05/12/18 08:53 Dose: 1 each Discontinued Medications Sodium Chloride (Normal Saline) 1,000 mls @ 1,000 mls/hr IV ASDIRECTED [facility] Last Admin: 05/11/18 12:09 Dose: 1,000 mls/hr Sodium Chloride (Normal Saline) 1,000 mls @ 125 mls/hr IV ASDIRECTED [facility] Last Admin: 05/12/18 05:22 Dose: 125 mls/hr Potassium Chloride 20 meq/Lidocaine HCl 2 ml/ Sodium Chloride 112 mls @ 28 mls/ hr IV ONETIME ONE Stop: 05/12/18 12:14 Last Admin: 05/12/18 11:01 Dose: Not Given Potassium Chloride 20 meq/Lidocaine HCl 2 ml/ Sodium Chloride 112 mls @ 56 mls/ hr IV Q2H [facility] Stop: 05/12/18 13:59 Last Admin: 05/12/18 13:09 Dose: 56 mls/hr Methylprednisolone Sodium Succinate (Solu-Medrol) 40 mg IVPUSH Q8H [facility] Last Admin: 05/12/18 05:22 Dose: 40 mg Potassium Chloride (Klor-Con M20) 40 meq PO ONETIME ONE Stop: 05/12/18 10:01 Last Admin: 05/12/18 10:46 Dose: 40 meq - Exam Quality Assessment: Reports: DVT Prophylaxis General: Reports: Alert, Cooperative, No Acute Distress Lungs: Reports: Clear to Auscultation, Normal Respiratory Effort Cardiovascular: Reports: Regular Rate, Regular Rhythm, No Murmurs GI/Abdominal Exam: Soft, Non-Tender, No Organomegaly, No Distention
== END 2018-05-12 16:30 | disposition home or self-care (01) | DRG 194 ==
LOC: JP.ED 11:12 → JP.MS 12:47
PROVIDERS: ADMIT Hospitalist; ATTEND Hospitalist
DX: J10.1 Influenza due to other identified influenza virus with other respiratory manifestations (principal); I69.951 Hemiplegia and hemiparesis following unspecified cerebrovascular disease affecting right dominant side; Z68.41 Body mass index [BMI] 40.0-44.9, adult; E86.0 Dehydration; R53.1 Weakness; I10 Essential (primary) hypertension; R05 Cough; R41.0 Disorientation, unspecified; I69.920 Aphasia following unspecified cerebrovascular disease; H54.7 Unspecified visual loss; M19.90 Unspecified osteoarthritis, unspecified site; Z93.50 Unspecified cystostomy status; Z96.0 Presence of urogenital implants; E66.9 Obesity, unspecified; H40.9 Unspecified glaucoma; Z88.2 Allergy status to sulfonamides; Z79.82 Long term (current) use of aspirin; Z96.649 Presence of unspecified artificial hip joint; N42.9 Disorder of prostate, unspecified
CPT/HCPCS: 36415; 71045; 80053; 85025; 87804 ×2; J7030; 80048; 81001; 83735; 96360; 97110-GP; 97161-GP; 99285-25; A9270-GY; J1650; J2001; J2920; J3475; J3480

== ENCOUNTER 2018-12-03 09:59 | Emergency (ER) | payer MEDICARE, BC ==
[2018-12-03] MEDS ORDERED: Lidocaine 2% Jelly 10 ML Urojet MUCMEM ONE (10:25)
--- NOTE | 2018-12-03 10:55 | EDM.PDOC ---
ED HPI GENERAL MEDICAL PROBLEM - General Chief Complaint: Genitourinary Problem Stated Complaint: CATHETER PROBLEM Time Seen by Provider: 12/03/18 10:30 Source of Information: Reports: Patient, Family - History of Present Illness INITIAL COMMENTS - FREE TEXT/NARRATIVE: Fly is a 78 year old male, hx of chronic indwelling Hernandez, home health nurse out to replace today and was unable to insert a new one. Patient sent here for further evaluation/Hernandez placement. NO other complaints/concerns. - Related Data Allergies Allergy/AdvReac Type Severity Reaction Status Date / Time Sulfa (Sulfonamide Allergy Other Verified 12/03/18 10:35 Antibiotics) Home Meds: Home Meds Aspirin [Halfprin] 81 mg PO DAILY 05/11/18 [History] Losartan [Cozaar] 50 mg PO DAILY 05/11/18 [History] Polyethylene Glycol 3350 [MiraLAX] 1 pack PO ASDIRECTED PRN 05/11/18 [History] Pravastatin [Pravachol] 40 mg PO DAILY 05/11/18 [History] Timolol [Betimol 0.5% Ophth Soln] 1 drop EYEBOTH DAILY 05/11/18 [History] amLODIPine Besylate [Amlodipine Besylate] 10 mg PO DAILY 05/11/18 [History] Past Medical History HEENT History: Reports: Glaucoma, Impaired Vision Cardiovascular History: Reports: High Cholesterol, Hypertension Gastrointestinal History: Reports: None Genitourinary History: Reports: Prostate Disorder Other Genitourinary History: 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, Musculoskeletal History: Reports: Arthritis Neurological History: Reports: TIA, Other (See Below) Other Neuro History: 2017- stroke Psychiatric History: Reports: Dementia Endocrine/Metabolic History: Reports: Obesity/BMI 30+ - Infectious Disease History Infectious Disease History: Reports: Chicken Pox - Past Surgical History Head Surgeries/Procedures: Reports: None HEENT Surgical History: Reports: None Cardiovascular Surgical History: Reports: None GI Surgical History: Reports: Cholecystectomy Endocrine Surgical History: Reports: None Neurological Surgical History: Reports: None Musculoskeletal Surgical History: Reports: Hip Replacement Dermatological Surgical History: Reports: None Social & Family History - Family History Family Medical History: Noncontributory - Tobacco Use Smoking Status *Q: Never Smoker Second Hand Smoke Exposure: No - Caffeine Use Caffeine Use: Reports: None - Recreational Drug Use Recreational Drug Use: No ED ROS GENERAL - Review of Systems Review Of Systems: ROS reveals no pertinent complaints other than HPI. ED EXAM, RENAL/ - Physical Exam Exam: See Below Exam Limited By: No Limitations General Appearance: Alert, WD/WN, No Apparent Distress Respiratory/Chest: No Respiratory Distress Cardiovascular: Regular Rate, Rhythm GI/Abdominal: Normal Bowel Sounds, Soft, Non-Tender (Male) Exam: No: Suprapubic Fullness Neurological: Alert Psychiatric: Normal Affect Lymphatic: No Adenopathy Course - Vital Signs Last Recorded V/S: Last Vital Signs Temp 36.1 C 12/03/18 10:37 Pulse 87 12/03/18 10:37 Resp 22 H 12/03/18 10:37 BP 146/76 H 12/03/18 10:37 Pulse Ox 92 L 12/03/18 10:37 Fly is a 78-year-old male with a chronic indwelling Hernandez who sent to the emergency department today as his home health nurse was unable to pass a new Hernandez catheter. Coud catheter was placed here without difficulty. Patient tolerated well and catheter is draining appropriately. Patient discharged back home. - Orders/Labs/Meds Orders: Active Orders 24 hr Category Date Time Status Insert Hernandez Catheter [Insert Urinary Catheter] [OM.PC] Care 12/03/18 10:30 Ordered Q24H Urinary Catheter Assessment [RC] ASDIRECTED Care 12/03/18 10:25 Active Meds: Medications Discontinued Medications Generic Name Dose Route Start Last Admin Trade Name Rudyq PRN Reason Stop Dose Admin Lidocaine HCl 10 ml 12/03/18 10:25 Xylocaine 2% Jelly MUCMEM 12/03/18 10:26 ONETIME ONE Departure - Departure Time of Disposition: 11:30 Disposition: Home, Self-Care 01 Condition: Good Clinical Impression: Hernandez catheter problem Qualifiers: Encounter type: initial encounter Qualified Code(s): T83.9XXA - Unspecified complication of genitourinary prosthetic device, implant and graft, initial encounter - Discharge Information Instructions: Indwelling Urinary Catheter Care, Adult Referrals: PCP,None [Primary Care Provider] - Forms: ED Department Discharge
== END 2018-12-03 11:32 | disposition home or self-care (01) ==
LOC: JP.ED 09:59
DX: T83.9XXA Unspecified complication of genitourinary prosthetic device, implant and graft, initial encounter (principal); I10 Essential (primary) hypertension; E66.9 Obesity, unspecified; E78.00 Pure hypercholesterolemia, unspecified; Z88.2 Allergy status to sulfonamides; Z79.82 Long term (current) use of aspirin; Z79.899 Other long term (current) drug therapy; Z68.30 Body mass index [BMI] 30.0-30.9, adult; Z86.73 Personal history of transient ischemic attack (TIA), and cerebral infarction without residual deficits; Z90.49 Acquired absence of other specified parts of digestive tract
CPT/HCPCS: 51702; 99282

== ENCOUNTER 2019-02-11 13:51 | Inpatient (IN) | payer MEDICARE, BC ==
--- NOTE | 2019-02-11 14:28 | EDM.PDOC ---
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 No new pain, his appetite is good, no vomiting, no shortness of breath, but he usually assists his family and getting in and out of the car and gets around the house on his own but for the last 24-48 hours he is too weak to do anything by himself. No sudden change, he just got done with a long car ride from [place] to home after being cared for by his daughter for the past month. No falls or head injury. No fevers or chills. No shortness of breath or cough. Onset: Gradual Duration: Day(s): (Worsening over the last 2-3 days) Location: Reports: Generalized Worsens with: Reports: Other (Weakness is most profound when attempting to ambulate or get up from a sitting position) Associated Symptoms: Reports: Confusion (Seems to have increased confusion according to the daughter), Malaise, Weakness. Denies: Chest Pain, Cough, Diaphoresis, Fever/Chills, Loss of Appetite (Very good appetite), Nausea/ Vomiting - Related Data Allergies Allergy/AdvReac Type Severity Reaction Status Date / Time Sulfa (Sulfonamide Allergy Other Verified 02/11/19 14:04 Antibiotics) Home Meds: Home Meds Aspirin [Halfprin] 81 mg PO DAILY 05/11/18 [History] Losartan [Cozaar] 50 mg PO DAILY 05/11/18 [History] Polyethylene Glycol 3350 [MiraLAX] 1 pack PO ASDIRECTED PRN 05/11/18 [History] Pravastatin [Pravachol] 40 mg PO DAILY 05/11/18 [History] amLODIPine Besylate [Amlodipine Besylate] 10 mg PO DAILY 05/11/18 [History] Furosemide 20 mg PO DAILY 02/11/19 [History] Past Medical History HEENT History: Reports: Glaucoma, Impaired Vision Cardiovascular History: Reports: High Cholesterol, Hypertension Gastrointestinal History: Reports: None Genitourinary History: Reports: Prostate Disorder Other Genitourinary History: 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, Musculoskeletal History: Reports: Arthritis Neurological History: Reports: TIA, Other (See Below) Other Neuro History: 2017- stroke Psychiatric History: Reports: Dementia Endocrine/Metabolic History: Reports: Obesity/BMI 30+ - Infectious Disease History Infectious Disease History: Reports: Chicken Pox - Past Surgical History Head Surgeries/Procedures: Reports: None HEENT Surgical History: Reports: None Cardiovascular Surgical History: Reports: None GI Surgical History: Reports: Cholecystectomy Endocrine Surgical History: Reports: None Neurological Surgical History: Reports: None Musculoskeletal Surgical History: Reports: Hip Replacement Dermatological Surgical History: Reports: None Social & Family History - Family History Family Medical History: Noncontributory - Tobacco Use Smoking Status *Q: Never Smoker - Caffeine Use Caffeine Use: Reports: Coffee - Recreational Drug Use Recreational Drug Use: No ED ROS GENERAL - Review of Systems Review Of Systems: See Below Constitutional: Denies: Fever, Chills, Decreased Appetite HEENT: Denies: Vision Change Respiratory: Denies: Shortness of Breath Cardiovascular: Denies: Chest Pain GI/Abdominal: Denies: Abdominal Pain, Nausea, Vomiting : Reports: Other (Chronic indwelling catheter) Skin: Reports: No Symptoms Neurological: Reports: Other (Chronic right-sided weakness and significant aphasia from large left-sided CVA 2 years ago) Psychiatric: Reports: No Symptoms ED EXAM, GENERAL - Physical Exam Exam: See Below Exam Limited By: No Limitations General Appearance: Alert, No Apparent Distress Eye Exam: Bilateral Eye: EOMI Head: Atraumatic Respiratory/Chest: No Respiratory Distress Cardiovascular: Regular Rate, Rhythm GI/Abdominal: Soft, Non-Tender Extremities: Pedal Edema (1+ symmetric pedal edema) Neurological: Other (Severe expressive aphasia, almost noncommunicative. He does have fairly good grasp strength with his right hand although it is weaker than the left, and fairly strong plantar and dorsiflexion of his right foot) Psychiatric: Normal Affect, Normal Mood Skin Exam: Warm, Dry Course - Vital Signs Last Recorded V/S: Last Vital Signs Temp 97.9 F 02/12/19 03:00 Pulse 90 02/12/19 03:00 Resp 16 02/12/19 03:00 BP 152/90 H 02/12/19 03:00 Pulse Ox 94 L 02/12/19 03:00 - Orders/Labs/Meds Orders: Medication Orders Acetaminophen (Tylenol) 650 mg PO Q4H PRN PRN Reason: Pain (Mild 1-3)/fever Amlodipine Besylate (Norvasc) 10 mg PO DAILY [facility] Aspirin (Halfprin) 81 mg PO DAILY [facility] Enoxaparin Sodium (Lovenox) 40 mg SUBCUT DAILY [facility] Last Admin: 02/11/19 20:03 Dose: 40 mg Furosemide (Lasix) 20 mg PO DAILY [facility] Sodium Chloride (Normal Saline) 1,000 mls @ 100 mls/hr IV ASDIRECTED [facility] Last Admin: 02/11/19 22:39 Dose: 100 mls/hr Influenza Virus Vaccine (Fluzone High-Dose 2018- Syringe) 180 mcg IM .ONCE ONE Stop: 02/12/19 10:01 Losartan Potassium (Cozaar) 50 mg PO DAILY [facility] Magnesium Oxide (Magnesium Oxide) 400 mg PO BID [facility] Last Admin: 02/11/19 22:38 Dose: 400 mg Admin: 02/11/19 20:15 Dose: 400 mg Non-Formulary Medication (Pravastatin [Pravachol]) 40 mg PO DAILY [facility] Ondansetron HCl (Zofran) 4 mg IV Q4H PRN PRN Reason: Nausea/Vomiting Polyethylene Glycol (Miralax) 17 gm PO DAILY PRN PRN Reason: Constipation Sodium Chloride (Saline Flush) 10 ml FLUSH ASDIRECTED PRN PRN Reason: Keep Vein Open Labs: Laboratory Tests 02/11/19 02/11/19 02/11/19 Range/Units 14:24 14:52 14:52 WBC 12.2 H (4.5-11.0) K/uL RBC 6.51 H (4.30-5.90) M/uL Hgb 17.7 H (12.0-15.0) g/dL Hct 53.3 (40.0-54.0) % MCV 82 (80-98) fL MCH 27 (27-31) pg MCHC 33 (32-36) % Plt Count 198 (150-400) K/uL Neut % (Auto) 78 H (36-66) % Lymph % (Auto) 11 L (24-44) % [place] % (Auto) 11 H (2-6) % Eos % (Auto) 0 L (2-4) % Baso % (Auto) 0 (0-1) % Sodium 139 L (140-148) mmol/L Potassium 3.5 L (3.6-5.2) mmol/L Chloride 103 (100-108) mmol/L Carbon Dioxide 24 (21-32) mmol/L Anion Gap 15.5 H (5.0-14.0) mmol/L BUN 20 H (7-18) mg/dL Creatinine 1.0 (0.8-1.3) mg/dL Est Cr Clr Drug Dosing 60.88 mL/min Estimated GFR (MDRD) > 60 (>60) Glucose 131 H (74-106) mg/dL Calcium 8.9 (8.5-10.1) mg/dL Magnesium (1.8-2.4) mg/dL Total Bilirubin 1.2 H D (0.2-1.0) mg/dL AST 32 (15-37) U/L ALT 50 (12-78) U/L Alkaline Phosphatase 78 (46-116) U/L Total Protein 7.4 (6.4-8.2) g/dL Albumin 3.2 L (3.4-5.0) g/dL Globulin 4.2 H (2.3-3.5) g/dL Albumin/Globulin Ratio 0.8 L (1.2-2.2) Urine Color Yellow (YELLOW) Urine Appearance Cloudy A (CLEAR) Urine pH 6.0 (5.0-8.0) Ur Specific [place] 1.015 (1.008-1.030) Urine Protein 100 H (NEGATIVE) mg/dL Urine Glucose (UA) Negative (NEGATIVE) mg/dL Urine Ketones Negative (NEGATIVE) mg/dL Urine Occult Blood Moderate H (NEGATIVE) Urine Nitrite Negative (NEGATIVE) Urine Bilirubin Negative (NEGATIVE) Urine Urobilinogen 2.0 H (0.2-1.0) EU/dL Ur Leukocyte Esterase Trace H (NEGATIVE) Urine RBC 10-20 H (0-5) Urine WBC 5-10 H (0-5) Ur Epithelial Cells Not seen Amorphous Sediment Numerous Urine Bacteria Rare Urine Mucus Not seen 02/11/19 Range/Units 16:07 WBC (4.5-11.0) K/uL RBC (4.30-5.90) M/uL Hgb (12.0-15.0) g/dL Hct (40.0-54.0) % MCV (80-98) fL MCH (27-31) pg MCHC (32-36) % Plt Count (150-400) K/uL Neut % (Auto) (36-66) % Lymph % (Auto) (24-44) % [place] % (Auto) (2-6) % Eos % (Auto) (2-4) % Baso % (Auto) (0-1) % Sodium (140-148) mmol/L Potassium (3.6-5.2) mmol/L Chloride (100-108) mmol/L Carbon Dioxide (21-32) mmol/L Anion Gap (5.0-14.0) mmol/L BUN (7-18) mg/dL Creatinine (0.8-1.3) mg/dL Est Cr Clr Drug Dosing mL/min Estimated GFR (MDRD) (>60) Glucose (74-106) mg/dL Calcium (8.5-10.1) mg/dL Magnesium 1.7 L (1.8-2.4) mg/dL Total Bilirubin (0.2-1.0) mg/dL AST (15-37) U/L ALT (12-78) U/L Alkaline Phosphatase (46-116) U/L Total Protein (6.4-8.2) g/dL Albumin (3.4-5.0) g/dL Globulin (2.3-3.5) g/dL Albumin/Globulin Ratio (1.2-2.2) Urine Color (YELLOW) Urine Appearance (CLEAR) Urine pH (5.0-8.0) Ur Specific [place] (1.008-1.030) Urine Protein (NEGATIVE) mg/dL Urine Glucose (UA) (NEGATIVE) mg/dL Urine Ketones (NEGATIVE) mg/dL Urine Occult Blood (NEGATIVE) Urine Nitrite (NEGATIVE) Urine Bilirubin (NEGATIVE) Urine Urobilinogen (0.2-1.0) EU/dL Ur Leukocyte Esterase (NEGATIVE) Urine RBC (0-5) Urine WBC (0-5) Ur Epithelial Cells Amorphous Sediment Urine Bacteria Urine Mucus Meds: Medications Generic Name Dose Route Start Last Admin Trade Name Freq PRN Reason Stop Dose Admin Acetaminophen 650 mg 02/11/19 18:23 Tylenol PO Q4H PRN Pain (Mild 1-3)/fever Amlodipine Besylate 10 mg 02/12/19 09:00 Norvasc PO DAILY [facility] Aspirin 81 mg 02/12/19 09:00 Halfprin PO DAILY [facility] Enoxaparin Sodium 40 mg 02/11/19 18:23 02/11/19 20:03 Lovenox SUBCUT 40 mg DAILY [facility] Administration Furosemide 20 mg 02/12/19 09:00 Lasix PO DAILY [facility] Sodium Chloride 1,000 mls @ 100 mls/hr 02/11/19 22:30 02/11/19 22:39 Normal Saline IV 100 mls/hr ASDIRECTED JOHN Administration Influenza Virus Vaccine 180 mcg 02/12/19 10:00 Fluzone High-Dose 2019-20 Syringe IM 02/12/19 10:01 .ONCE ONE Losartan Potassium 50 mg 02/12/19 09:00 Cozaar PO DAILY [facility] Magnesium Oxide 400 mg 02/11/19 18:23 02/11/19 22:38 Magnesium Oxide PO 400 mg BID JOHN Administration Non-Formulary Medication 40 mg 02/12/19 09:00 Pravastatin [Pravachol] PO DAILY [facility] Ondansetron HCl 4 mg 02/11/19 18:23 Zofran IV Q4H PRN Nausea/Vomiting Polyethylene Glycol 17 gm 02/11/19 18:23 Miralax PO DAILY PRN Constipation Sodium Chloride 10 ml 02/11/19 18:23 Saline Flush FLUSH ASDIRECTED PRN Keep Vein Open Discontinued Medications Generic Name Dose Route Start Last Admin Trade Name Freq PRN Reason Stop Dose Admin Sodium Chloride 1,000 mls @ 500 mls/hr 02/11/19 14:30 02/11/19 15:13 Normal Saline IV 500 mls/hr ASDIRECTED [facility] Administration Magnesium Sulfate 2 gm/ Premix 50 mls @ 25 mls/hr 02/11/19 19:00 02/12/19 00: 02 IV 02/12/19 02:59 25 mls/hr Q6H JOHN Administration Potassium Chloride 40 meq 02/11/19 18:23 02/11/19 19:59 Klor-Con M20 PO 02/11/19 18:24 40 meq ONETIME ONE Administration - Re-Assessments/Exams Free Text/Narrative Re-Assessment/Exam: 02/11/19 14:30 A UA will be obtained, as well as a CBC and CMP. He'll be hydrated with 1 L of fluid and a CT of the head obtained. Without contrast. 02/11/19 16:49 UA shows rare bacteria, 10-20 WBCs and no significant findings of inflammation. Magnesium is 1.7, potassium 3.5. Hemoglobin is 17.7 and white count 12,200.. Kidney function is adequate. GFR is greater than 60, creatinine 1.0, BUN 20. LFTs are all normal except for total bilirubin at 1.2. Calcium is 8.9. We attempted to get the patient up to use a bedside commode and it was very difficult because of his profound weakness. The family was very uncomfortable trying to take him home in his present condition. I discussed his case with Dr. Mancini, he kindly agreed to see the patient to consider admission for weakness. The CT did not show any new acute findings but an MRI may be more worthwhile tomorrow if possible. Departure - Departure Time of Disposition: 18:03 Disposition: Admitted As Inpatient 66 Clinical Impression: Generalized weakness, CVA, old, aphasia - Discharge Information
[2019-02-11] MEDS ORDERED: Sodium Chloride 0.9% 1,000 ML IV SCH ×2 (14:30→22:30)
--- NOTE | 2019-02-11 15:52 | CT ---
Head wo Cont CLINICAL HISTORY: History of previous CVA, new weakness COMPARISON: None TECHNIQUE: Transverse scans were obtained from the base of the skull through the vertex without IV contrast on a multislice, multidetector CT scanner. Auto dosage reduction and iterative reconstruction techniques employed. FINDINGS: Patient has moderate encephalomalacia in the left the cerebral hemisphere predominantly within the left occipital lobe. There is also some encephalomalacia in the left basal ganglia in the region of the internal capsule and insular cortex there is no hemorrhage or mass effect. There is scattered periventricular lucency seen throughout. There is no extra-axial collection. The basal cisterns and sulci over the convexities are prominent. The ventricles are prominent. IMPRESSION: Moderate encephalomalacia involving the left cerebral hemisphere old ischemic infarct the Chronic ischemic microvascular change Moderate atrophy
--- NOTE | 2019-02-11 18:03 | PCM.HP.2 ---
H&P History of Present Illness - General Date of Service: 02/11/19 Admit Problem/Dx: Admission Diagnosis/Problem Admission Diagnosis/Problem Weakness Source of Information: Patient, Family, Provider History Limitations: Reports: Physical Impairment (Expressive aphasia) - History of Present Illness Initial Comments - Free Text/Narative: Mr. Monroy is a 78-year-old gentleman who was admitted to observation status through the emergency department because of generalized weakness. He has a known history of previous left CVA with residual right-sided weakness involving the right and lower extremity as well as mild right facial weakness and expressive aphasia. He had been staying with his daughter in [place] for the past month. Over the last 3 days they've been driving back to [place] from [place]. During the last 2 days his daughter and noted progressive generalized weakness, inability to stand and walk. Family has not noted new localized weakness, they did feel that he was having a hard time understanding directions. Patient also denies any new focal weakness. He has received IV fluids in the emergency Department for hydration. CT scan of the head shows evidence of his old CVA but no obvious new infarct. - Related Data Allergies/Adverse Reactions: Allergies Allergy/AdvReac Type Severity Reaction Status Date / Time Sulfa (Sulfonamide Allergy Other Verified 02/11/19 14:04 Antibiotics) Home Medications: Home Meds Aspirin [Halfprin] 81 mg PO DAILY 05/11/18 [History] Losartan [Cozaar] 50 mg PO DAILY 05/11/18 [History] Polyethylene Glycol 3350 [MiraLAX] 1 pack PO ASDIRECTED PRN 05/11/18 [History] Pravastatin [Pravachol] 40 mg PO DAILY 05/11/18 [History] amLODIPine Besylate [Amlodipine Besylate] 10 mg PO DAILY 05/11/18 [History] Furosemide 20 mg PO DAILY 02/11/19 [History] Past Medical History HEENT History: Reports: Glaucoma, Impaired Vision Cardiovascular History: Reports: High Cholesterol, Hypertension Gastrointestinal History: Reports: None Genitourinary History: Reports: Prostate Disorder Other Genitourinary History: has escudero due to prostate disorder, Musculoskeletal History: Reports: Arthritis Neurological History: Reports: TIA, Other (See Below) Other Neuro History: 2017- stroke Psychiatric History: Reports: Dementia Endocrine/Metabolic History: Reports: Obesity/BMI 30+ - Infectious Disease History Infectious Disease History: Reports: Chicken Pox - Past Surgical History Head Surgeries/Procedures: Reports: None HEENT Surgical History: Reports: None Cardiovascular Surgical History: Reports: None GI Surgical History: Reports: Cholecystectomy Endocrine Surgical History: Reports: None Neurological Surgical History: Reports: None Musculoskeletal Surgical History: Reports: Hip Replacement Dermatological Surgical History: Reports: None Social & Family History - Family History Family Medical History: Noncontributory - Tobacco Use Smoking Status *Q: Never Smoker - Caffeine Use Caffeine Use: Reports: Coffee - Recreational Drug Use Recreational Drug Use: No H&P Review of Systems - Review of Systems: Review Of Systems: See Below General: Reports: Weakness, Fatigue. Denies: Fever, Chills, Malaise, Decreased Appetite HEENT: Reports: No Symptoms Pulmonary: Reports: No Symptoms Cardiovascular: Reports: No Symptoms Gastrointestinal: Reports: No Symptoms Genitourinary: Reports: No Symptoms Musculoskeletal: Reports: No Symptoms Skin: Reports: No Symptoms Psychiatric: Reports: No Symptoms Neurological: Reports: No Symptoms Hematologic/Lymphatic: Reports: No Symptoms Immunologic: Reports: No Symptoms Exam - Exam Exam: See Below - Vital Signs Vital Signs: Last Vital Signs Temp 98.3 F 02/11/19 15:11 Pulse 83 02/11/19 17:55 Resp 16 02/11/19 17:55 BP 125/72 02/11/19 17:55 Pulse Ox 93 L 02/11/19 17:55 Weight: 260 lb - Exam Quality Assessment: Urinary Catheter, DVT Prophylaxis General: Alert, Oriented, Cooperative, Mild Distress HEENT: Conjunctiva Clear, Hearing Intact, Mucosa Moist & [place], Normal Nasal Septum, Posterior Pharynx Clear, Pupils Equal Neck: Supple, Trachea Midline, +2 Carotid Pulse wo Bruit Lungs: Clear to Auscultation, Normal Respiratory Effort Cardiovascular: Regular Rate, Regular Rhythm, Normal S1, Normal S2. No: Systolic Murmur, Diastolic Murmur GI/Abdominal Exam: Soft, Non-Tender, No Organomegaly, No Distention Back Exam: Normal Inspection, Full Range of Motion Extremities: Non-Tender, No Pedal Edema Skin: Warm, Dry, Intact Neurological: Other (Residual right arm right leg and right facial weakness stable from previous CVA. Expressive aphasia which also has been present since previous CVA). No: Strength Equal Bilateral, Normal Speech, Sensation Intact Neuro Extensive - Mental Status: Alert, Normal Mood/Affect, Normal Cognition, Memory Intact - Patient Data Lab Results Last 24 hrs: Laboratory Results - last 24 hr 02/11/19 02/11/19 02/11/19 Range/Units 14:24 14:52 14:52 WBC 12.2 H (4.5-11.0) K/uL RBC 6.51 H (4.30-5.90) M/uL Hgb 17.7 H (12.0-15.0) g/dL Hct 53.3 (40.0-54.0) % MCV 82 (80-98) fL MCH 27 (27-31) pg MCHC 33 (32-36) % Plt Count 198 (150-400) K/uL Neut % (Auto) 78 H (36-66) % Lymph % (Auto) 11 L (24-44) % [place] % (Auto) 11 H (2-6) % Eos % (Auto) 0 L (2-4) % Baso % (Auto) 0 (0-1) % Sodium 139 L (140-148) mmol/L Potassium 3.5 L (3.6-5.2) mmol/L Chloride 103 (100-108) mmol/L Carbon Dioxide 24 (21-32) mmol/L Anion Gap 15.5 H (5.0-14.0) mmol/L BUN 20 H (7-18) mg/dL Creatinine 1.0 (0.8-1.3) mg/dL Est Cr Clr Drug Dosing 60.88 mL/min Estimated GFR (MDRD) > 60 (>60) Glucose 131 H (74-106) mg/dL Calcium 8.9 (8.5-10.1) mg/dL Magnesium (1.8-2.4) mg/dL Total Bilirubin 1.2 H D (0.2-1.0) mg/dL AST 32 (15-37) U/L ALT 50 (12-78) U/L Alkaline Phosphatase 78 (46-116) U/L Total Protein 7.4 (6.4-8.2) g/dL Albumin 3.2 L (3.4-5.0) g/dL Globulin 4.2 H (2.3-3.5) g/dL Albumin/Globulin Ratio 0.8 L (1.2-2.2) Urine Color Yellow (YELLOW) Urine Appearance Cloudy A (CLEAR) Urine pH 6.0 (5.0-8.0) Ur Specific [place] 1.015 (1.008-1.030) Urine Protein 100 H (NEGATIVE) mg/dL Urine Glucose (UA) Negative (NEGATIVE) mg/dL Urine Ketones Negative (NEGATIVE) mg/dL Urine Occult Blood Moderate H (NEGATIVE) Urine Nitrite Negative (NEGATIVE) Urine Bilirubin Negative (NEGATIVE) Urine Urobilinogen 2.0 H (0.2-1.0) EU/dL Ur Leukocyte Esterase Trace H (NEGATIVE) Urine RBC 10-20 H (0-5) Urine WBC 5-10 H (0-5) Ur Epithelial Cells Not seen Amorphous Sediment Numerous Urine Bacteria Rare Urine Mucus Not seen 02/11/19 Range/Units 16:07 WBC (4.5-11.0) K/uL RBC (4.30-5.90) M/uL Hgb (12.0-15.0) g/dL Hct (40.0-54.0) % MCV (80-98) fL MCH (27-31) pg MCHC (32-36) % Plt Count (150-400) K/uL Neut % (Auto) (36-66) % Lymph % (Auto) (24-44) % [place] % (Auto) (2-6) % Eos % (Auto) (2-4) % Baso % (Auto) (0-1) % Sodium (140-148) mmol/L Potassium (3.6-5.2) mmol/L Chloride (100-108) mmol/L Carbon Dioxide (21-32) mmol/L Anion Gap (5.0-14.0) mmol/L BUN (7-18) mg/dL Creatinine (0.8-1.3) mg/dL Est Cr Clr Drug Dosing mL/min Estimated GFR (MDRD) (>60) Glucose (74-106) mg/dL Calcium (8.5-10.1) mg/dL Magnesium 1.7 L (1.8-2.4) mg/dL Total Bilirubin (0.2-1.0) mg/dL AST (15-37) U/L ALT (12-78) U/L Alkaline Phosphatase (46-116) U/L Total Protein (6.4-8.2) g/dL Albumin (3.4-5.0) g/dL Globulin (2.3-3.5) g/dL Albumin/Globulin Ratio (1.2-2.2) Urine Color (YELLOW) Urine Appearance (CLEAR) Urine pH (5.0-8.0) Ur Specific [place] (1.008-1.030) Urine Protein (NEGATIVE) mg/dL Urine Glucose (UA) (NEGATIVE) mg/dL Urine Ketones (NEGATIVE) mg/dL Urine Occult Blood (NEGATIVE) Urine Nitrite (NEGATIVE) Urine Bilirubin (NEGATIVE) Urine Urobilinogen (0.2-1.0) EU/dL Ur Leukocyte Esterase (NEGATIVE) Urine RBC (0-5) Urine WBC (0-5) Ur Epithelial Cells Amorphous Sediment Urine Bacteria Urine Mucus Result Diagrams: 02/11/19 14:52 02/11/19 14:52 *Q Meaningful Use (ADM) - VTE Risk Assess *Q Each Risk Factor Represents 1 Point: Obesity ( BMI > 25 kg/m2) Total Score 1 Point Risk Factors: 1 Each Risk Factor Represents 2 Points: None Total Score 2 Point Risk Factors: 0 Each Risk Factor Represents 3 Points: Age 75 Years or Greater Total Score 3 Point Risk Factors: 3 Each Risk Factor Represents 5 Points: None Total Score 5 Point Risk Factors: 0 Venous Thromboembolism Risk Factor Score *Q: 4 Problem List Initiated/Reviewed/Updated: Yes Orders Last 24hrs: Active Orders 24 hr Category Date Time Status Patient Status Manage Transfer [TRANSFER] Routine ADT 02/11/19 17:56 Ordered Sodium Chloride 0.9% [Normal Saline] 1,000 ml Med 02/11/19 14:30 Active IV ASDIRECTED Resuscitation Status Routine Resus Stat 02/11/19 17:58 Ordered Medication Orders Sodium Chloride (Normal Saline) 1,000 mls @ 500 mls/hr IV ASDIRECTED JOHN Last Admin: 02/11/19 15:13 Dose: 500 mls/hr Assessment/Plan Comment:: ASSESSMENT AND PLAN GENERALIZED WEAKNESS-likely from recent travel, no new focal weakness or underlying infection identified -Observation admission -Physical therapy consult in a.m. -MRI with contrast in a.m. HISTORY OF PREVIOUS LEFT CVA-residual right-sided weakness and expressive aphasia appeared to be stable INDWELLING ESCUDERO CATHETER-bacteria and modest white blood cell count elevation noted on urinalysis, likely secondary to colonization. No evidence of true urinary tract infection at this time. -Hold on antibiotic therapy MAINTENANCE ISSUES -DVT prophylaxis; Lovenox 40 mg subcutaneous daily -GI prophylaxis; not indicated -Escudero catheter; chronic indwelling catheter -Nutrition; 2 g sodium diet -Nicotine dependence; not required CODE STATUS-FULL CODE ADMISSION STATUS-this patient will be admitted to observation status, expect no more than a one night hospital stay for evaluation and management of problems as outlined above. DISPOSITION-anticipate discharge to home after the hospital stay. PRIMARY CARE PROVIDER-Dr. Walton - Mortality Measure Prognosis:: Good
[2019-02-11] MEDS ORDERED: Sodium Chloride 0.9% 10 ML Syringe FLUSH PRN (18:23)
[2019-02-11] MEDS ORDERED: Potassium Chloride 20 MEQ Tab.ER PO ONE (18:23)
[2019-02-11] MEDS ORDERED: Enoxaparin 40 MG/0.4 ML Syringe SUBCUT SCH (18:23)
[2019-02-11] MEDS ORDERED: Ondansetron 4 MG/2 ML SDV IV PRN (18:23)
[2019-02-11] MEDS ORDERED: Polyethylene Glycol 3350 Powder 17 GM Packet PO PRN (18:23)
[2019-02-11] MEDS: Magnesium Sulfate/Water 2 GM in Premix Bag 1 BAG IV SCH (19:59)
[2019-02-11] MEDS: Magnesium Oxide 400 MG Tab PO SCH ×2 (20:15→22:38)
[2019-02-12] MEDS: Magnesium Sulfate/Water 2 GM in Premix Bag 1 BAG IV SCH (00:02)
[2019-02-12] MEDS ORDERED: PRAVASTATIN 40 MG PO SCH (09:00)
[2019-02-12] MEDS: LOSARTAN 50 MG PO SCH (09:41)
[2019-02-12] MEDS: AMLODIPINE 10 MG PO SCH (09:42)
[2019-02-12] MEDS: FUROSEMIDE 40 MG PO SCH (09:43)
[2019-02-12] MEDS: Aspirin 81 MG Tab.EC PO SCH (09:43)
[2019-02-12] MEDS: Magnesium Oxide 400 MG Tab PO SCH ×2 (09:43→20:13)
[2019-02-12] MEDS ORDERED: Potassium Chloride 20 MEQ Tab.ER PO ONE ×2 (10:00→17:00)
--- NOTE | 2019-02-12 16:19 | CRLMR ---
INDICATION: Weakness receptive aphasia. TECHNIQUE: Multiplanar multisequence noncontrast MR images were obtained through the brain. COMPARISON: CT brain 02/11/2019. 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 Large chronic left middle cerebral artery territory infarction with involvement of the left precentral and postcentral gyri, left centrum semiovale, and left laird radiata. There is also infarction involving the left basal ganglia and left subinsular region. Associated ex vacuo dilatation of the left lateral ventricle. Chronic blood products in the left operculum, left basal ganglia, and left subinsular region. Fvxc-je-[id number] diffuse cerebral volume loss. No mass effect or midline shift. Patchy T2 FLAIR hyperintensity in the supratentorial white matter, suggestive of moderate chronic microvascular ischemic changes. Small focus of susceptibility and T2 hypointensity in the inferior left cerebellar hemisphere. No findings to suggest recent intracranial hemorrhage. No pathologic extra-axial fluid collection. No diffusion restriction to suggest acute infarction. The major arterial flow voids of the skullbase are preserved. The globes are symmetric in size. The paranasal sinuses are well pneumatized. Large right mastoid effusion. IMPRESSION: 1. No acute infarction. 2. Large left posterior cerebral artery and left middle cerebral artery territory infarctions associated with ex vacuo dilatation of the left lateral ventricle. 3. Moderate chronic microvascular ischemic changes. 4. Grpq-ta-trrtorwc diffuse cerebral volume loss. 5. Small focus of susceptibility in the inferior left cerebellar hemisphere may represent a chronic microhemorrhage, mineralization, or a small cavernous malformation. 6. Large right mastoid effusion. Dictated by Elio Carrington MD @ Feb 12 2019 3:56PM Signed by Dr. Elio Carrington @ Feb 12 2019 4:18PM
[2019-02-12] MEDS ORDERED: Furosemide 40 MG/4 ML VIAL IVPUSH ONE (19:00)
--- NOTE | 2019-02-12 19:51 | PCM.PN ---
- General Info Date of Service: 02/12/19 Subjective Update: Mr. Monroy has been stable since admission with no significant temperature elevations. He remains very weak and more confused than usual. MRI of the brain was obtained today showing no acute infarcts. He is unable to provide meaningful history concerning recent symptoms or review of systems because of his dementia and confusion. - Patient Data Vitals - Most Recent: Last Vital Signs Temp 96.4 F 02/12/19 14:32 Pulse 73 02/12/19 14:32 Resp 16 02/12/19 14:32 BP 138/80 02/12/19 14:32 Pulse Ox 97 02/12/19 14:32 Weight - Most Recent: 260 lb I&O - Last 24 Hours: Intake & Output 02/12/19 02/12/19 02/12/19 06:59 14:59 22:59 Intake Total 3757 503 6259 Output Total 1300 450 Balance 659 700 770 Lab Results Last 24 Hours: Laboratory Results - last 24 hr 02/12/19 02/12/19 Range/Units 04:00 04:00 WBC 9.4 (4.5-11.0) K/uL RBC 6.10 H (4.30-5.90) M/uL Hgb 17.5 H (12.0-15.0) g/dL Hct 49.5 (40.0-54.0) % MCV 81 (80-98) fL MCH 29 (27-31) pg MCHC 35 (32-36) % Plt Count 129 L (150-400) K/uL Neut % (Auto) 74 H (36-66) % Lymph % (Auto) 13 L (24-44) % Hudson % (Auto) 12 H (2-6) % Eos % (Auto) 1 L (2-4) % Baso % (Auto) 0 (0-1) % Sodium 140 (140-148) mmol/L Potassium 3.4 L (3.6-5.2) mmol/L Chloride 105 (100-108) mmol/L Carbon Dioxide 25 (21-32) mmol/L Anion Gap 13.4 (5.0-14.0) mmol/L BUN 11 (7-18) mg/dL Creatinine 0.8 (0.8-1.3) mg/dL Est Cr Clr Drug Dosing 76.10 mL/min Estimated GFR (MDRD) > 60 (>60) Glucose 104 (74-106) mg/dL Calcium 8.5 (8.5-10.1) mg/dL Magnesium 2.4 (1.8-2.4) mg/dL Med Orders - Current: Current Medications Acetaminophen (Tylenol) 650 mg PO Q4H PRN PRN Reason: Pain (Mild 1-3)/fever Amlodipine Besylate (Norvasc) 10 mg PO DAILY ON LICENSE OF [facility] Last Admin: 02/12/19 09:42 Dose: 10 mg Aspirin (Halfprin) 81 mg PO DAILY ON LICENSE OF [facility] Last Admin: 02/12/19 09:43 Dose: 81 mg Enoxaparin Sodium (Lovenox) 40 mg SUBCUT Q24H ON LICENSE OF [facility] Furosemide (Lasix) 20 mg PO DAILY ON LICENSE OF [facility] Last Admin: 02/12/19 09:43 Dose: 20 mg Losartan Potassium (Cozaar) 50 mg PO DAILY ON LICENSE OF [facility] Last Admin: 02/12/19 09:41 Dose: 50 mg Magnesium Oxide (Magnesium Oxide) 400 mg PO BID ON LICENSE OF [facility] Last Admin: 02/12/19 09:43 Dose: 400 mg Pravastatin 40 Mg * (*Pom) 0 mg PO BEDTIME ON LICENSE OF [facility] Ondansetron HCl (Zofran) 4 mg IV Q4H PRN PRN Reason: Nausea/Vomiting Polyethylene Glycol (Miralax) 17 gm PO DAILY PRN PRN Reason: Constipation Sodium Chloride (Saline Flush) 10 ml FLUSH ASDIRECTED PRN PRN Reason: Keep Vein Open Discontinued Medications Enoxaparin Sodium (Lovenox) 40 mg SUBCUT DAILY ON LICENSE OF [facility] Last Admin: 02/11/19 20:03 Dose: 40 mg Furosemide (Lasix) 40 mg IVPUSH NOW ONE Stop: 02/12/19 19:01 Last Admin: 02/12/19 18:14 Dose: 40 mg Sodium Chloride (Normal Saline) 1,000 mls @ 500 mls/hr IV ASDIRECTED ON LICENSE OF [facility] Last Admin: 02/11/19 15:13 Dose: 500 mls/hr Magnesium Sulfate 2 gm/ Premix 50 mls @ 25 mls/hr IV Q6H ON LICENSE OF [facility] Stop: 02/12/19 02:59 Last Admin: 02/12/19 00:02 Dose: 25 mls/hr Sodium Chloride (Normal Saline) 1,000 mls @ 100 mls/hr IV ASDIRECTED ON LICENSE OF [facility] Last Admin: 02/11/19 22:39 Dose: 100 mls/hr Influenza Virus Vaccine (Fluzone High-Dose 2019-20 Syringe) 180 mcg IM .ONCE ONE Stop: 02/12/19 10:01 Last Admin: 02/12/19 10:56 Dose: 180 mcg Potassium Chloride (Klor-Con M20) 40 meq PO ONETIME ONE Stop: 02/11/19 18:24 Last Admin: 02/11/19 19:59 Dose: 40 meq Potassium Chloride (Klor-Con M20) 40 meq PO ONETIME ONE Stop: 02/12/19 10:01 Last Admin: 02/12/19 10:57 Dose: 40 meq Potassium Chloride (Klor-Con M20) 40 meq PO ONETIME ONE Stop: 02/12/19 17:01 Last Admin: 02/12/19 18:05 Dose: 40 meq - Exam General: Lethargic Lungs: Clear to Auscultation, Normal Respiratory Effort Cardiovascular: Regular Rate, Regular Rhythm, No Murmurs GI/Abdominal Exam: Soft, Non-Tender, No Organomegaly, No Distention Extremities: Non-Tender, Pedal Edema - Problem List Review Problem List Initiated/Reviewed/Updated: Yes - My Orders Last 24 Hours: My Active Orders 02/12/19 01:05 Influenza Vaccine Charge [RC] .DISCHARGE 02/12/19 09:00 Aspirin [Halfprin] 81 mg PO DAILY Furosemide [Lasix] 20 mg PO DAILY Losartan [Cozaar] 50 mg PO DAILY amLODIPine [Norvasc] 10 mg PO DAILY 02/12/19 13:11 Convert IV to Saline Lock [OM.PC] Routine 02/12/19 20:00 Enoxaparin [Lovenox] 40 mg SUBCUT Q24H 02/12/19 21:00 Pravastatin [Pravachol] 0 mg PO BEDTIME 02/13/19 05:11 POTASSIUM,K [CHEM] AM - Plan Plan:: ASSESSMENT AND PLAN GENERALIZED WEAKNESS-likely from recent travel, no new focal weakness or underlying infection identified. MRI of the brain obtained today shows no acute infarcts. He has remained more use than his usual baseline. No evidence of underlying infection or other significant abnormality to explain his weakness -Observation admission -Physical therapy . HISTORY OF PREVIOUS LEFT CVA-residual right-sided weakness and expressive aphasia appeared to be stable INDWELLING ESCUDERO CATHETER-bacteria and modest white blood cell count elevation noted on urinalysis, likely secondary to colonization. No evidence of true urinary tract infection at this time. -Hold on antibiotic therapy MAINTENANCE ISSUES -DVT prophylaxis; Lovenox 40 mg subcutaneous daily -GI prophylaxis; not indicated -Escudero catheter; chronic indwelling catheter -Nutrition; 2 g sodium diet -Nicotine dependence; not required CODE STATUS-FULL CODE ADMISSION STATUS-this patient will be admitted to observation status, expect no more than a one night hospital stay for evaluation and management of problems as outlined above. DISPOSITION-anticipate discharge to home after the hospital stay. PRIMARY CARE PROVIDER-Dr. Walton
[2019-02-12] MEDS: PRAVASTATIN 40 MG PO SCH (20:12)
[2019-02-12] MEDS: Enoxaparin 40 MG/0.4 ML Syringe SUBCUT SCH (20:13)
[2019-02-13] MEDS: FUROSEMIDE 40 MG PO SCH (10:21)
[2019-02-13] MEDS: AMLODIPINE 10 MG PO SCH (10:22)
[2019-02-13] MEDS: LOSARTAN 50 MG PO SCH (10:24)
[2019-02-13] MEDS: Aspirin 81 MG Tab.EC PO SCH (10:24)
[2019-02-13] MEDS: Magnesium Oxide 400 MG Tab PO SCH ×2 (10:25→20:04)
--- NOTE | 2019-02-13 15:32 | PCM.PN ---
- General Info Date of Service: 02/13/19 Subjective Update: Mr. Monroy has been stable since yesterday, more alert and interactive today. Late afternoon he has developed temperature elevation, urinalysis repeated showing evidence of true infection. Functional Status: Reports: Tolerating Diet. Denies: Ambulating - Review of Systems General: Reports: Fever, Weakness. Denies: Chills Pulmonary: Reports: No Symptoms Cardiovascular: Reports: No Symptoms Gastrointestinal: Reports: No Symptoms - Patient Data Vitals - Most Recent: Last Vital Signs Temp 102.0 F H 02/13/19 14:45 Pulse 82 02/13/19 14:45 Resp 18 02/13/19 14:45 BP 132/77 02/13/19 14:45 Pulse Ox 92 L 02/13/19 14:45 Weight - Most Recent: 260 lb I&O - Last 24 Hours: Intake & Output 02/13/19 02/13/19 02/13/19 06:59 14:59 22:59 Intake Total 640 Output Total 375 Balance -375 640 Lab Results Last 24 Hours: Laboratory Results - last 24 hr 02/13/19 Range/Units 06:09 Potassium 4.2 (3.6-5.2) mmol/L Med Orders - Current: Current Medications Acetaminophen (Tylenol) 650 mg PO Q4H PRN PRN Reason: Pain (Mild 1-3)/fever Amlodipine Besylate (Norvasc) 10 mg PO DAILY [facility] Last Admin: 02/13/19 10:22 Dose: 10 mg Aspirin (Halfprin) 81 mg PO DAILY [facility] Last Admin: 02/13/19 10:24 Dose: 81 mg Enoxaparin Sodium (Lovenox) 40 mg SUBCUT Q24H [facility] Last Admin: 02/12/19 20:13 Dose: 40 mg Furosemide (Lasix) 20 mg PO DAILY [facility] Last Admin: 02/13/19 10:21 Dose: 20 mg Losartan Potassium (Cozaar) 50 mg PO DAILY [facility] Last Admin: 02/13/19 10:24 Dose: 50 mg Magnesium Oxide (Magnesium Oxide) 400 mg PO BID [facility] Last Admin: 02/13/19 10:25 Dose: 400 mg Pravastatin 40 Mg * (*Pom) 0 mg PO BEDTIME [facility] Last Admin: 02/12/19 20:12 Dose: 40 mg Ondansetron HCl (Zofran) 4 mg IV Q4H PRN PRN Reason: Nausea/Vomiting Polyethylene Glycol (Miralax) 17 gm PO DAILY PRN PRN Reason: Constipation Sodium Chloride (Saline Flush) 10 ml FLUSH ASDIRECTED PRN PRN Reason: Keep Vein Open Discontinued Medications Enoxaparin Sodium (Lovenox) 40 mg SUBCUT DAILY [facility] Last Admin: 02/11/19 20:03 Dose: 40 mg Furosemide (Lasix) 40 mg IVPUSH NOW ONE Stop: 02/12/19 19:01 Last Admin: 02/12/19 18:14 Dose: 40 mg Sodium Chloride (Normal Saline) 1,000 mls @ 500 mls/hr IV ASDIRECTED [facility] Last Admin: 02/11/19 15:13 Dose: 500 mls/hr Magnesium Sulfate 2 gm/ Premix 50 mls @ 25 mls/hr IV Q6H [facility] Stop: 02/12/19 02:59 Last Admin: 02/12/19 00:02 Dose: 25 mls/hr Sodium Chloride (Normal Saline) 1,000 mls @ 100 mls/hr IV ASDIRECTED [facility] Last Admin: 02/11/19 22:39 Dose: 100 mls/hr Influenza Virus Vaccine (Fluzone High-Dose 2019-20 Syringe) 180 mcg IM .ONCE ONE Stop: 02/12/19 10:01 Last Admin: 02/12/19 10:56 Dose: 180 mcg Potassium Chloride (Klor-Con M20) 40 meq PO ONETIME ONE Stop: 02/11/19 18:24 Last Admin: 02/11/19 19:59 Dose: 40 meq Potassium Chloride (Klor-Con M20) 40 meq PO ONETIME ONE Stop: 02/12/19 10:01 Last Admin: 02/12/19 10:57 Dose: 40 meq Potassium Chloride (Klor-Con M20) 40 meq PO ONETIME ONE Stop: 02/12/19 17:01 Last Admin: 02/12/19 18:05 Dose: 40 meq - Exam Quality Assessment: DVT Prophylaxis General: Alert, Cooperative, No Acute Distress. No: Oriented Lungs: Clear to Auscultation, Normal Respiratory Effort Cardiovascular: Regular Rate, Regular Rhythm, No Murmurs GI/Abdominal Exam: Soft, Non-Tender, No Organomegaly, No Distention (Male) Exam: Other (Chronic indwelling Escudero catheter) - Problem List & Annotations (1) Dementia SNOMED Code(s): 34621722 Code(s): F03.90 - UNSPECIFIED DEMENTIA WITHOUT BEHAVIORAL DISTURBANCE Status: Acute Current Visit: Yes (2) Generalized weakness SNOMED Code(s): 51801194 Code(s): R53.1 - WEAKNESS Status: Acute Current Visit: Yes (3) CVA, old, aphasia SNOMED Code(s): 969719655 Code(s): I69.320 - APHASIA FOLLOWING CEREBRAL INFARCTION Status: Acute Current Visit: Yes (4) History of atrial fibrillation SNOMED Code(s): 923172894 Code(s): Z86.79 - PERSONAL HISTORY OF OTHER DISEASES OF THE CIRCULATORY SYSTEM Status: Chronic Current Visit: No (5) Essential hypertension SNOMED Code(s): 03736759 Code(s): I10 - ESSENTIAL (PRIMARY) HYPERTENSION Status: Chronic Current Visit: No - Problem List Review Problem List Initiated/Reviewed/Updated: Yes - My Orders Last 24 Hours: My Active Orders 02/12/19 20:00 Enoxaparin [Lovenox] 40 mg SUBCUT Q24H 02/12/19 21:00 Pravastatin [Pravachol] 0 mg PO BEDTIME 02/13/19 05:51 Urinary Catheter Assessment [RC] ASDIRECTED 02/13/19 06:00 Urinary Catheter Insertion [Insert Urinary Catheter] [OM.PC] Q24H 02/14/19 10:00 Ready for Discharge [RC] PER UNIT ROUTINE - Plan Plan:: ASSESSMENT AND PLAN GENERALIZED WEAKNESS-modest improvement in overall weakness, late this afternoon showing evidence of urinary tract infection with fever and positive urinalysis -Observation admission -Physical therapy . URINARY TRACT INFECTION-UA repeated showing more evidence of infection -Urine culture pending -Ceftriaxone 1 g IV every 24 hours HISTORY OF PREVIOUS LEFT CVA-residual right-sided weakness and expressive aphasia appeared to be stable INDWELLING ESCUDERO CATHETER-bacteria and modest white blood cell count elevation noted on urinalysis, likely secondary to colonization. No evidence of true urinary tract infection at this time. -Hold on antibiotic therapy MAINTENANCE ISSUES -DVT prophylaxis; Lovenox 40 mg subcutaneous daily -GI prophylaxis; not indicated -Escudero catheter; chronic indwelling catheter -Nutrition; 2 g sodium diet -Nicotine dependence; not required CODE STATUS-FULL CODE ADMISSION STATUS-this patient will be admitted to observation status, expect no more than a one night hospital stay for evaluation and management of problems as outlined above. DISPOSITION-anticipate discharge to residential after the hospital stay. PRIMARY CARE PROVIDER-Dr. Walton
--- NOTE | 2019-02-13 15:33 | PCM.DCSUM1 ---
Discharge Summary - Discharge Data Discharge Date: 02/14/19 Discharge Disposition: Home, Self-Care 01 Condition: Fair - Referral to Home Health Primary Care Physician: Bernadette Walton MD - Discharge Diagnosis/Problem(s) (1) Dementia SNOMED Code(s): 41409467 ICD Code: F03.90 - UNSPECIFIED DEMENTIA WITHOUT BEHAVIORAL DISTURBANCE Status: Acute Current Visit: Yes (2) Generalized weakness SNOMED Code(s): 86504107 ICD Code: R53.1 - WEAKNESS Status: Acute Current Visit: Yes (3) CVA, old, aphasia SNOMED Code(s): 296959786 ICD Code: I69.320 - APHASIA FOLLOWING CEREBRAL INFARCTION Status: Acute Current Visit: Yes (4) History of atrial fibrillation SNOMED Code(s): 696594943 ICD Code: Z86.79 - PERSONAL HISTORY OF OTHER DISEASES OF THE CIRCULATORY SYSTEM Status: Chronic Current Visit: No (5) Essential hypertension SNOMED Code(s): 16902055 ICD Code: I10 - ESSENTIAL (PRIMARY) HYPERTENSION Status: Chronic Current Visit: No - Patient Summary/Data Consults: Consultations 02/11/19 18:23 PT Evaluation and Treatment [CONS] Routine Please Evaluate and Treat. PT Reason for Consult: Weakness This query below is only for informational purposes and is not editable. - Patient Instructions Diet: Low Sodium Activity: As Tolerated Other/Special Instructions: FU labs Monday 3; BMP, Mg. FU appt primary care w/in 1 week - Discharge Plan *PRESCRIPTION DRUG MONITORING PROGRAM REVIEWED*: Not Applicable *COPY OF PRESCRIPTION DRUG MONITORING REPORT IN PATIENT YAS: Not Applicable Prescriptions/Med Rec: Magnesium Oxide 400 mg PO BID #60 tablet Potassium Chloride 20 meq PO BID #60 tablet.er Home Medications: Home Meds Aspirin [Halfprin] 81 mg PO DAILY 05/11/18 [History] Losartan [Cozaar] 50 mg PO DAILY 05/11/18 [History] Polyethylene Glycol 3350 [MiraLAX] 1 pack PO ASDIRECTED PRN 05/11/18 [History] Pravastatin [Pravachol] 40 mg PO DAILY 05/11/18 [History] amLODIPine Besylate [Amlodipine Besylate] 10 mg PO DAILY 05/11/18 [History] Furosemide 20 mg PO DAILY 02/11/19 [History] Magnesium Oxide 400 mg PO BID #60 tablet 02/13/19 [Rx] Potassium Chloride 20 meq PO BID #60 tablet.er 02/13/19 [Rx] Referrals: Bernadette Walton MD [Primary Care Provider] - - Patient Data Vitals - Most Recent: Last Vital Signs Temp 102.0 F H 02/13/19 14:45 Pulse 82 02/13/19 14:45 Resp 18 02/13/19 14:45 BP 132/77 02/13/19 14:45 Pulse Ox 92 L 02/13/19 14:45 Weight - Most Recent: 260 lb I&O - Last 24 hours: Intake & Output 02/13/19 02/13/19 02/13/19 06:59 14:59 22:59 Intake Total 640 Output Total 375 Balance -375 640 Lab Results - Last 24 hrs: Laboratory Results - last 24 hr 02/13/19 Range/Units 06:09 Potassium 4.2 (3.6-5.2) mmol/L Med Orders - Current: Current Medications Acetaminophen (Tylenol) 650 mg PO Q4H PRN PRN Reason: Pain (Mild 1-3)/fever Amlodipine Besylate (Norvasc) 10 mg PO DAILY [facility] Last Admin: 02/13/19 10:22 Dose: 10 mg Aspirin (Halfprin) 81 mg PO DAILY [facility] Last Admin: 02/13/19 10:24 Dose: 81 mg Enoxaparin Sodium (Lovenox) 40 mg SUBCUT Q24H [facility] Last Admin: 02/12/19 20:13 Dose: 40 mg Furosemide (Lasix) 20 mg PO DAILY [facility] Last Admin: 02/13/19 10:21 Dose: 20 mg Losartan Potassium (Cozaar) 50 mg PO DAILY [facility] Last Admin: 02/13/19 10:24 Dose: 50 mg Magnesium Oxide (Magnesium Oxide) 400 mg PO BID [facility] Last Admin: 02/13/19 10:25 Dose: 400 mg Pravastatin 40 Mg * (*Pom) 0 mg PO BEDTIME [facility] Last Admin: 02/12/19 20:12 Dose: 40 mg Ondansetron HCl (Zofran) 4 mg IV Q4H PRN PRN Reason: Nausea/Vomiting Polyethylene Glycol (Miralax) 17 gm PO DAILY PRN PRN Reason: Constipation Sodium Chloride (Saline Flush) 10 ml FLUSH ASDIRECTED PRN PRN Reason: Keep Vein Open Discontinued Medications Enoxaparin Sodium (Lovenox) 40 mg SUBCUT DAILY [facility] Last Admin: 02/11/19 20:03 Dose: 40 mg Furosemide (Lasix) 40 mg IVPUSH NOW ONE Stop: 02/12/19 19:01 Last Admin: 02/12/19 18:14 Dose: 40 mg Sodium Chloride (Normal Saline) 1,000 mls @ 500 mls/hr IV ASDIRECTED [facility] Last Admin: 02/11/19 15:13 Dose: 500 mls/hr Magnesium Sulfate 2 gm/ Premix 50 mls @ 25 mls/hr IV Q6H [facility] Stop: 02/12/19 02:59 Last Admin: 02/12/19 00:02 Dose: 25 mls/hr Sodium Chloride (Normal Saline) 1,000 mls @ 100 mls/hr IV ASDIRECTED [facility] Last Admin: 02/11/19 22:39 Dose: 100 mls/hr Influenza Virus Vaccine (Fluzone High-Dose 2019-20 Syringe) 180 mcg IM .ONCE ONE Stop: 02/12/19 10:01 Last Admin: 02/12/19 10:56 Dose: 180 mcg Potassium Chloride (Klor-Con M20) 40 meq PO ONETIME ONE Stop: 02/11/19 18:24 Last Admin: 02/11/19 19:59 Dose: 40 meq Potassium Chloride (Klor-Con M20) 40 meq PO ONETIME ONE Stop: 02/12/19 10:01 Last Admin: 02/12/19 10:57 Dose: 40 meq Potassium Chloride (Klor-Con M20) 40 meq PO ONETIME ONE Stop: 02/12/19 17:01 Last Admin: 02/12/19 18:05 Dose: 40 meq
[2019-02-13] MEDS: Lactobacillus Rhamnosus GG (Probiotic) Cap PO SCH ×2 (17:37→20:04)
[2019-02-13] MEDS: cefTRIAXone 1 GM in Sodium Chloride 0.9% 50 ML IV SCH (17:59)
[2019-02-13] MEDS: Enoxaparin 40 MG/0.4 ML Syringe SUBCUT SCH (20:04)
[2019-02-13] MEDS: PRAVASTATIN 40 MG PO SCH (20:05)
[2019-02-14] MEDS: Acetaminophen 325 MG Tab PO PRN ×2 (03:03→15:24)
[2019-02-14] MEDS: Lactobacillus Rhamnosus GG (Probiotic) Cap PO SCH ×2 (08:16→20:10)
[2019-02-14] MEDS: LOSARTAN 50 MG PO SCH (08:16)
[2019-02-14] MEDS: Aspirin 81 MG Tab.EC PO SCH (08:17)
[2019-02-14] MEDS: FUROSEMIDE 40 MG PO SCH (08:17)
[2019-02-14] MEDS: Magnesium Oxide 400 MG Tab PO SCH ×2 (08:17→20:10)
[2019-02-14] MEDS: AMLODIPINE 10 MG PO SCH (08:18)
--- NOTE | 2019-02-14 11:14 | PCM.PN ---
- General Info Date of Service: 02/14/19 Subjective Update: Mr. Monroy develop significant temperature elevation yesterday afternoon to 102. Reassessment of urinalysis shows evidence of underlying infection and he has been started on antibiotic therapy with ceftriaxone. Plan had been for discharge to [place] [facility] today but given his fever he will be monitored and additional 24 hours. Urine culture is pending. Functional Status: Reports: Pain Controlled, Tolerating Diet, Urinating. Denies : Ambulating - Review of Systems General: Reports: Fever, Weakness, Chills Pulmonary: Reports: No Symptoms Cardiovascular: Reports: No Symptoms Gastrointestinal: Reports: No Symptoms - Patient Data Vitals - Most Recent: Last Vital Signs Temp 99.8 F 02/14/19 07:00 Pulse 69 02/14/19 07:00 Resp 18 02/14/19 07:00 BP 149/81 H 02/14/19 08:18 Pulse Ox 94 L 02/14/19 07:00 Weight - Most Recent: 260 lb I&O - Last 24 Hours: Intake & Output 02/13/19 02/14/19 02/14/19 22:59 06:59 14:59 Intake Total 840 500 236 Output Total 1000 800 Balance -160 -300 236 Lab Results Last 24 Hours: Laboratory Results - last 24 hr 02/13/19 Range/Units 17:09 Urine Color Yellow (YELLOW) Urine Appearance Cloudy A (CLEAR) Urine pH 5.5 (5.0-8.0) Ur Specific [place] 1.015 (1.008-1.030) Urine Protein Negative (NEGATIVE) mg/dL Urine Glucose (UA) Negative (NEGATIVE) mg/dL Urine Ketones Negative (NEGATIVE) mg/dL Urine Occult Blood Moderate H (NEGATIVE) Urine Nitrite Positive H (NEGATIVE) Urine Bilirubin Negative (NEGATIVE) Urine Urobilinogen 1.0 (0.2-1.0) EU/dL Ur Leukocyte Esterase Negative (NEGATIVE) Urine RBC 10-20 H (0-5) Urine WBC 0-5 (0-5) Ur Epithelial Cells Not seen Amorphous Sediment Not seen Urine Bacteria Many Urine Mucus Not seen Med Orders - Current: Current Medications Acetaminophen (Tylenol) 650 mg PO Q4H PRN PRN Reason: Pain (Mild 1-3)/fever Last Admin: 02/14/19 03:03 Dose: 650 mg Amlodipine Besylate (Norvasc) 10 mg PO DAILY [facility] Last Admin: 02/14/19 08:18 Dose: 10 mg Aspirin (Halfprin) 81 mg PO DAILY [facility] Last Admin: 02/14/19 08:17 Dose: 81 mg Enoxaparin Sodium (Lovenox) 40 mg SUBCUT Q24H [facility] Last Admin: 02/13/19 20:04 Dose: 40 mg Furosemide (Lasix) 20 mg PO DAILY [facility] Last Admin: 02/14/19 08:17 Dose: 20 mg Ceftriaxone Sodium 1 gm/ (Sodium Chloride) 50 mls @ 100 mls/hr IV Q24H [facility] Last Admin: 02/13/19 17:59 Dose: 100 mls/hr Lactobacillus Rhamnosus (Culturelle) 1 cap PO BID [facility] Last Admin: 02/14/19 08:16 Dose: 1 cap Losartan Potassium (Cozaar) 50 mg PO DAILY [facility] Last Admin: 02/14/19 08:16 Dose: 50 mg Magnesium Oxide (Magnesium Oxide) 400 mg PO BID [facility] Last Admin: 02/14/19 08:17 Dose: 400 mg Pravastatin 40 Mg * (*Pom) 0 mg PO BEDTIME [facility] Last Admin: 02/13/19 20:05 Dose: 40 mg Ondansetron HCl (Zofran) 4 mg IV Q4H PRN PRN Reason: Nausea/Vomiting Polyethylene Glycol (Miralax) 17 gm PO DAILY PRN PRN Reason: Constipation Sodium Chloride (Saline Flush) 10 ml FLUSH ASDIRECTED PRN PRN Reason: Keep Vein Open Discontinued Medications Enoxaparin Sodium (Lovenox) 40 mg SUBCUT DAILY [facility] Last Admin: 02/11/19 20:03 Dose: 40 mg Furosemide (Lasix) 40 mg IVPUSH NOW ONE Stop: 02/12/19 19:01 Last Admin: 02/12/19 18:14 Dose: 40 mg Sodium Chloride (Normal Saline) 1,000 mls @ 500 mls/hr IV ASDIRECTED [facility] Last Admin: 02/11/19 15:13 Dose: 500 mls/hr Magnesium Sulfate 2 gm/ Premix 50 mls @ 25 mls/hr IV Q6H [facility] Stop: 02/12/19 02:59 Last Admin: 02/12/19 00:02 Dose: 25 mls/hr Sodium Chloride (Normal Saline) 1,000 mls @ 100 mls/hr IV ASDIRECTED [facility] Last Admin: 02/11/19 22:39 Dose: 100 mls/hr Influenza Virus Vaccine (Fluzone High-Dose 2019-20 Syringe) 180 mcg IM .ONCE ONE Stop: 02/12/19 10:01 Last Admin: 02/12/19 10:56 Dose: 180 mcg Potassium Chloride (Klor-Con M20) 40 meq PO ONETIME ONE Stop: 02/11/19 18:24 Last Admin: 02/11/19 19:59 Dose: 40 meq Potassium Chloride (Klor-Con M20) 40 meq PO ONETIME ONE Stop: 02/12/19 10:01 Last Admin: 02/12/19 10:57 Dose: 40 meq Potassium Chloride (Klor-Con M20) 40 meq PO ONETIME ONE Stop: 02/12/19 17:01 Last Admin: 02/12/19 18:05 Dose: 40 meq - Exam General: Alert, Cooperative, No Acute Distress. No: Oriented Lungs: Clear to Auscultation, Normal Respiratory Effort Cardiovascular: Regular Rate, Regular Rhythm, No Murmurs GI/Abdominal Exam: Soft, Non-Tender, No Organomegaly, No Distention Extremities: Non-Tender, Pedal Edema - Problem List & Annotations (1) Dementia SNOMED Code(s): 84630666 Code(s): F03.90 - UNSPECIFIED DEMENTIA WITHOUT BEHAVIORAL DISTURBANCE Status: Acute Current Visit: Yes (2) Generalized weakness SNOMED Code(s): 13513748 Code(s): R53.1 - WEAKNESS Status: Acute Current Visit: Yes (3) CVA, old, aphasia SNOMED Code(s): 677616890 Code(s): I69.320 - APHASIA FOLLOWING CEREBRAL INFARCTION Status: Acute Current Visit: Yes (4) History of atrial fibrillation SNOMED Code(s): 372946563 Code(s): Z86.79 - PERSONAL HISTORY OF OTHER DISEASES OF THE CIRCULATORY SYSTEM Status: Chronic Current Visit: No (5) Essential hypertension SNOMED Code(s): 04758577 Code(s): I10 - ESSENTIAL (PRIMARY) HYPERTENSION Status: Chronic Current Visit: No - Problem List Review Problem List Initiated/Reviewed/Updated: Yes - My Orders Last 24 Hours: My Active Orders 02/13/19 17:00 Lactobacillus Rhamnosus GG [Culturelle] 1 cap PO BID 02/13/19 17:36 CULTURE URINE [RM] Stat 02/13/19 18:00 cefTRIAXone [Rocephin] 1 gm Sodium Chloride 0.9% [Normal Saline] 50 ml IV Q24H 02/15/19 10:00 Ready for Discharge [RC] PER UNIT ROUTINE - Plan Plan:: ASSESSMENT AND PLAN GENERALIZED WEAKNESS-modest improvement in overall weakness -Observation admission -Physical therapy . URINARY TRACT INFECTION-fever yesterday, UA repeated showing more evidence of infection -Urine culture pending -Ceftriaxone 1 g IV every 24 hours HISTORY OF PREVIOUS LEFT CVA-residual right-sided weakness and expressive aphasia appeared to be stable CHRONIC INDWELLING ESCUDERO CATHETER MAINTENANCE ISSUES -DVT prophylaxis; Lovenox 40 mg subcutaneous daily -GI prophylaxis; not indicated -Escudero catheter; chronic indwelling catheter -Nutrition; 2 g sodium diet -Nicotine dependence; not required CODE STATUS-FULL CODE ADMISSION STATUS-this patient will be admitted to observation status, expect no more than a one night hospital stay for evaluation and management of problems as outlined above. DISPOSITION-anticipate discharge to [place] [facility] after the hospital stay. PRIMARY CARE PROVIDER-Dr. Walton
[2019-02-14] MEDS: cefTRIAXone 1 GM in Sodium Chloride 0.9% 50 ML IV SCH (17:26)
[2019-02-14] MEDS: PRAVASTATIN 40 MG PO SCH (20:06)
[2019-02-14] MEDS: Enoxaparin 40 MG/0.4 ML Syringe SUBCUT SCH (20:09)
[2019-02-15] MEDS: LOSARTAN 50 MG PO SCH (08:41)
[2019-02-15] MEDS: FUROSEMIDE 40 MG PO SCH (08:42)
[2019-02-15] MEDS: AMLODIPINE 10 MG PO SCH (08:44)
[2019-02-15] MEDS: Lactobacillus Rhamnosus GG (Probiotic) Cap PO SCH ×2 (08:48→21:09)
[2019-02-15] MEDS: Acetaminophen 325 MG Tab PO PRN (08:48)
[2019-02-15] MEDS: Aspirin 81 MG Tab.EC PO SCH (08:48)
[2019-02-15] MEDS: Magnesium Oxide 400 MG Tab PO SCH ×2 (10:56→21:09)
--- NOTE | 2019-02-15 13:55 | PCM.PN ---
- General Info Date of Service: 02/15/19 Subjective Update: Mr. Monroy has continued to experience low-grade temperature elevations. Denies shortness of breath, chest x-ray shows possible infiltrate right lung. Vital signs have remained stable with mild temperature elevations. Functional Status: Reports: Tolerating Diet, Urinating - Review of Systems General: Reports: Fever, Weakness Pulmonary: Reports: No Symptoms Cardiovascular: Reports: No Symptoms Gastrointestinal: Reports: No Symptoms - Patient Data Vitals - Most Recent: Last Vital Signs Temp 100.5 F 02/15/19 11:32 Pulse 86 02/15/19 11:32 Resp 16 02/15/19 11:32 BP 119/69 02/15/19 11:32 Pulse Ox 93 L 02/15/19 11:32 Weight - Most Recent: 288 lb I&O - Last 24 Hours: Intake & Output 02/14/19 02/15/19 02/15/19 22:59 06:59 14:59 Intake Total 450 400 Output Total 900 750 Balance -450 -350 Ady Results Last 24 Hours: Microbiology 02/13/19 17:36 Urine Culture - Preliminary Urine, Escudero Cath (Indwelling) Med Orders - Current: Current Medications Acetaminophen (Tylenol) 650 mg PO Q4H PRN PRN Reason: Pain (Mild 1-3)/fever Last Admin: 02/15/19 08:48 Dose: 650 mg Amlodipine Besylate (Norvasc) 10 mg PO DAILY [facility] Last Admin: 02/15/19 08:44 Dose: 10 mg Aspirin (Halfprin) 81 mg PO DAILY [facility] Last Admin: 02/15/19 08:48 Dose: 81 mg Enoxaparin Sodium (Lovenox) 40 mg SUBCUT Q24H [facility] Last Admin: 02/14/19 20:09 Dose: 40 mg Furosemide (Lasix) 20 mg PO DAILY [facility] Last Admin: 02/15/19 08:42 Dose: 20 mg Ceftriaxone Sodium 1 gm/ (Sodium Chloride) 50 mls @ 100 mls/hr IV Q24H [facility] Last Admin: 02/14/19 17:26 Dose: 100 mls/hr Lactobacillus Rhamnosus (Culturelle) 1 cap PO BID [facility] Last Admin: 02/15/19 08:48 Dose: 1 cap Losartan Potassium (Cozaar) 50 mg PO DAILY [facility] Last Admin: 02/15/19 08:41 Dose: 50 mg Magnesium Oxide (Magnesium Oxide) 400 mg PO BID [facility] Last Admin: 02/15/19 10:56 Dose: 400 mg Pravastatin 40 Mg * (*Pom) 0 mg PO BEDTIME [facility] Last Admin: 02/14/19 20:06 Dose: 40 mg Ondansetron HCl (Zofran) 4 mg IV Q4H PRN PRN Reason: Nausea/Vomiting Polyethylene Glycol (Miralax) 17 gm PO DAILY PRN PRN Reason: Constipation Sodium Chloride (Saline Flush) 10 ml FLUSH ASDIRECTED PRN PRN Reason: Keep Vein Open Discontinued Medications Enoxaparin Sodium (Lovenox) 40 mg SUBCUT DAILY [facility] Last Admin: 02/11/19 20:03 Dose: 40 mg Furosemide (Lasix) 40 mg IVPUSH NOW ONE Stop: 02/12/19 19:01 Last Admin: 02/12/19 18:14 Dose: 40 mg Sodium Chloride (Normal Saline) 1,000 mls @ 500 mls/hr IV ASDIRECTED [facility] Last Admin: 02/11/19 15:13 Dose: 500 mls/hr Magnesium Sulfate 2 gm/ Premix 50 mls @ 25 mls/hr IV Q6H [facility] Stop: 02/12/19 02:59 Last Admin: 02/12/19 00:02 Dose: 25 mls/hr Sodium Chloride (Normal Saline) 1,000 mls @ 100 mls/hr IV ASDIRECTED [facility] Last Admin: 02/11/19 22:39 Dose: 100 mls/hr Influenza Virus Vaccine (Fluzone High-Dose 2019-20 Syringe) 180 mcg IM .ONCE ONE Stop: 02/12/19 10:01 Last Admin: 02/12/19 10:56 Dose: 180 mcg Potassium Chloride (Klor-Con M20) 40 meq PO ONETIME ONE Stop: 02/11/19 18:24 Last Admin: 02/11/19 19:59 Dose: 40 meq Potassium Chloride (Klor-Con M20) 40 meq PO ONETIME ONE Stop: 02/12/19 10:01 Last Admin: 02/12/19 10:57 Dose: 40 meq Potassium Chloride (Klor-Con M20) 40 meq PO ONETIME ONE Stop: 02/12/19 17:01 Last Admin: 02/12/19 18:05 Dose: 40 meq - Exam Quality Assessment: DVT Prophylaxis General: Alert, Cooperative, No Acute Distress. No: Oriented Lungs: Clear to Auscultation, Normal Respiratory Effort Cardiovascular: Regular Rate, Regular Rhythm, No Murmurs GI/Abdominal Exam: Soft, Non-Tender, No Organomegaly, No Distention Extremities: Non-Tender, Pedal Edema - Problem List & Annotations (1) Dementia SNOMED Code(s): 92092157 Code(s): F03.90 - UNSPECIFIED DEMENTIA WITHOUT BEHAVIORAL DISTURBANCE Status: Acute Current Visit: Yes (2) Generalized weakness SNOMED Code(s): 91963145 Code(s): R53.1 - WEAKNESS Status: Acute Current Visit: Yes (3) CVA, old, aphasia SNOMED Code(s): 337967746 Code(s): I69.320 - APHASIA FOLLOWING CEREBRAL INFARCTION Status: Acute Current Visit: Yes (4) History of atrial fibrillation SNOMED Code(s): 068791864 Code(s): Z86.79 - PERSONAL HISTORY OF OTHER DISEASES OF THE CIRCULATORY SYSTEM Status: Chronic Current Visit: No (5) Essential hypertension SNOMED Code(s): 67863584 Code(s): I10 - ESSENTIAL (PRIMARY) HYPERTENSION Status: Chronic Current Visit: No - Problem List Review Problem List Initiated/Reviewed/Updated: Yes - My Orders Last 24 Hours: My Active Orders 02/15/19 10:00 Ready for Discharge [RC] PER UNIT ROUTINE 02/15/19 12:23 Chest 2V [CR] Stat - Plan Plan:: ASSESSMENT AND PLAN GENERALIZED WEAKNESS-modest improvement in overall weakness -Physical therapy PERSISTENT [id number], possible infiltrate right chest -Transition to oral antibiotic therapy with levofloxacin 750 mg daily URINARY TRACT INFECTION-fever yesterday, UA repeated showing more evidence of infection -Culture growing gram-positive cocci -Levofloxacin 750 mg by mouth daily HISTORY OF PREVIOUS LEFT CVA-residual right-sided weakness and expressive aphasia appeared to be stable CHRONIC INDWELLING ESCUDERO CATHETER MAINTENANCE ISSUES -DVT prophylaxis; Lovenox 40 mg subcutaneous daily -GI prophylaxis; not indicated -Escudero catheter; chronic indwelling catheter -Nutrition; 2 g sodium diet -Nicotine dependence; not required CODE STATUS-FULL CODE ADMISSION STATUS-this patient will be admitted to observation status, expect no more than a one night hospital stay for evaluation and management of problems as outlined above. DISPOSITION-anticipate discharge to [facility] after the hospital stay. PRIMARY CARE PROVIDER-Dr. Walton
--- NOTE | 2019-02-15 14:01 | CRLCR ---
INDICATION: Fever and cough TECHNIQUE: Chest 2 views. COMPARISON: May 11, 2018 FINDINGS: Stable cardiac size. Lung volumes are low which accentuates the vascular markings. Patchy atelectasis or infiltrate in the right mid and lower lung field. No effusion or pneumothorax. No acute osseous abnormality. IMPRESSION: Patchy atelectasis or infection in the right mid and lower lung field. Dictated by Jaida Garrett MD @ Feb 15 2019 1:57PM Signed by Dr. Jaida Garrett @ Feb 15 2019 1:59PM
[2019-02-15] MEDS: Levofloxacin 250 MG Tab PO SCH (14:55)
[2019-02-15] MEDS: Enoxaparin 40 MG/0.4 ML Syringe SUBCUT SCH (21:09)
[2019-02-15] MEDS: PRAVASTATIN 40 MG PO SCH (21:09)
[2019-02-16] MEDS: LOSARTAN 50 MG PO SCH (08:29)
[2019-02-16] MEDS: Lactobacillus Rhamnosus GG (Probiotic) Cap PO SCH ×2 (08:30→20:08)
[2019-02-16] MEDS: Aspirin 81 MG Tab.EC PO SCH (08:30)
[2019-02-16] MEDS: FUROSEMIDE 40 MG PO SCH (08:31)
[2019-02-16] MEDS: AMLODIPINE 10 MG PO SCH (08:32)
[2019-02-16] MEDS: Magnesium Oxide 400 MG Tab PO SCH ×2 (08:32→20:08)
--- NOTE | 2019-02-16 11:49 | PCM.PN ---
- General Info Date of Service: 02/16/19 Subjective Update: Mr. Monroy has done well since yesterday with no recurrent temperature elevations. Vital signs have been stable and he currently denies shortness of breath. Functional Status: Reports: Tolerating Diet - Review of Systems General: Reports: Weakness. Denies: Fever, Chills Pulmonary: Reports: No Symptoms Cardiovascular: Reports: No Symptoms Gastrointestinal: Reports: No Symptoms - Patient Data Vitals - Most Recent: Last Vital Signs Temp 96.1 F 02/16/19 10:41 Pulse 87 02/16/19 10:41 Resp 16 02/16/19 10:41 BP 155/68 H 02/16/19 10:41 Pulse Ox 96 02/16/19 10:41 Weight - Most Recent: 288 lb I&O - Last 24 Hours: Intake & Output 02/15/19 02/16/19 02/16/19 22:59 06:59 14:59 Intake Total 240 320 Output Total 400 700 900 Balance -160 -700 -580 Ady Results Last 24 Hours: Microbiology 02/13/19 17:36 Urine Culture - Final Urine, Escudero Cath (Indwelling) Gram Positive Rods Med Orders - Current: Current Medications Acetaminophen (Tylenol) 650 mg PO Q4H PRN PRN Reason: Pain (Mild 1-3)/fever Last Admin: 02/15/19 08:48 Dose: 650 mg Amlodipine Besylate (Norvasc) 10 mg PO DAILY [facility] Aspirin (Halfprin) 81 mg PO DAILY [facility] Last Admin: 02/16/19 08:30 Dose: 81 mg Enoxaparin Sodium (Lovenox) 40 mg SUBCUT Q24H [facility] Last Admin: 02/15/19 21:09 Dose: 40 mg Furosemide (Lasix) 20 mg PO DAILY [facility] Lactobacillus Rhamnosus (Culturelle) 1 cap PO BID [facility] Last Admin: 02/16/19 08:30 Dose: 1 cap Levofloxacin (Levaquin) 750 mg PO Q24H [facility] Last Admin: 02/15/19 14:55 Dose: 750 mg Losartan Potassium (Cozaar) 50 mg PO DAILY [facility] Magnesium Oxide (Magnesium Oxide) 400 mg PO BID [facility] Last Admin: 02/16/19 08:32 Dose: 400 mg Ondansetron HCl (Zofran) 4 mg IV Q4H PRN PRN Reason: Nausea/Vomiting Polyethylene Glycol (Miralax) 17 gm PO DAILY PRN PRN Reason: Constipation Pravastatin Sodium (Pravachol) 40 mg PO BEDTIME [facility] Sodium Chloride (Saline Flush) 10 ml FLUSH ASDIRECTED PRN PRN Reason: Keep Vein Open Discontinued Medications Amlodipine Besylate (Norvasc) 10 mg PO DAILY [facility] Last Admin: 02/16/19 08:32 Dose: 10 mg Enoxaparin Sodium (Lovenox) 40 mg SUBCUT DAILY [facility] Last Admin: 02/11/19 20:03 Dose: 40 mg Furosemide (Lasix) 20 mg PO DAILY [facility] Last Admin: 02/16/19 08:31 Dose: 20 mg Furosemide (Lasix) 40 mg IVPUSH NOW ONE Stop: 02/12/19 19:01 Last Admin: 02/12/19 18:14 Dose: 40 mg Sodium Chloride (Normal Saline) 1,000 mls @ 500 mls/hr IV ASDIRECTED [facility] Last Admin: 02/11/19 15:13 Dose: 500 mls/hr Magnesium Sulfate 2 gm/ Premix 50 mls @ 25 mls/hr IV Q6H [facility] Stop: 02/12/19 02:59 Last Admin: 02/12/19 00:02 Dose: 25 mls/hr Sodium Chloride (Normal Saline) 1,000 mls @ 100 mls/hr IV ASDIRECTED [facility] Last Admin: 02/11/19 22:39 Dose: 100 mls/hr Ceftriaxone Sodium 1 gm/ (Sodium Chloride) 50 mls @ 100 mls/hr IV Q24H [facility] Last Admin: 02/14/19 17:26 Dose: 100 mls/hr Influenza Virus Vaccine (Fluzone High-Dose 2019-20 Syringe) 180 mcg IM .ONCE ONE Stop: 02/12/19 10:01 Last Admin: 02/12/19 10:56 Dose: 180 mcg Losartan Potassium (Cozaar) 50 mg PO DAILY [facility] Last Admin: 02/16/19 08:29 Dose: 50 mg Pravastatin 40 Mg * (*Pom) 0 mg PO BEDTIME [facility] Last Admin: 02/15/19 21:09 Dose: 40 mg Potassium Chloride (Klor-Con M20) 40 meq PO ONETIME ONE Stop: 02/11/19 18:24 Last Admin: 02/11/19 19:59 Dose: 40 meq Potassium Chloride (Klor-Con M20) 40 meq PO ONETIME ONE Stop: 02/12/19 10:01 Last Admin: 02/12/19 10:57 Dose: 40 meq Potassium Chloride (Klor-Con M20) 40 meq PO ONETIME ONE Stop: 02/12/19 17:01 Last Admin: 02/12/19 18:05 Dose: 40 meq - Exam Quality Assessment: DVT Prophylaxis General: Alert, Cooperative, No Acute Distress. No: Oriented Lungs: Clear to Auscultation, Normal Respiratory Effort Cardiovascular: Regular Rate, Regular Rhythm, No Murmurs GI/Abdominal Exam: Soft, Non-Tender, No Organomegaly, No Distention Extremities: Non-Tender, Pedal Edema - Problem List & Annotations (1) Dementia SNOMED Code(s): 84671695 Code(s): F03.90 - UNSPECIFIED DEMENTIA WITHOUT BEHAVIORAL DISTURBANCE Status: Acute Current Visit: Yes (2) Generalized weakness SNOMED Code(s): 34195768 Code(s): R53.1 - WEAKNESS Status: Acute Current Visit: Yes (3) CVA, old, aphasia SNOMED Code(s): 572413754 Code(s): I69.320 - APHASIA FOLLOWING CEREBRAL INFARCTION Status: Acute Current Visit: Yes (4) History of atrial fibrillation SNOMED Code(s): 506675659 Code(s): Z86.79 - PERSONAL HISTORY OF OTHER DISEASES OF THE CIRCULATORY SYSTEM Status: Chronic Current Visit: No (5) Essential hypertension SNOMED Code(s): 50046222 Code(s): I10 - ESSENTIAL (PRIMARY) HYPERTENSION Status: Chronic Current Visit: No - Problem List Review Problem List Initiated/Reviewed/Updated: No - My Orders Last 24 Hours: My Active Orders 02/15/19 14:30 levoFLOXacin [Levaquin] 750 mg PO Q24H 02/16/19 21:00 Pravastatin [Pravachol] 40 mg PO BEDTIME 02/17/19 09:00 Furosemide [Lasix] 20 mg PO DAILY Losartan [Cozaar] 50 mg PO DAILY amLODIPine [Norvasc] 10 mg PO DAILY - Plan Plan:: ASSESSMENT AND PLAN GENERALIZED WEAKNESS-modest improvement in overall weakness -Physical therapy URINARY TRACT INFECTION -Culture growing gram-positive cocci -Levofloxacin 750 mg by mouth daily HISTORY OF PREVIOUS LEFT CVA-residual right-sided weakness and expressive aphasia appeared to be stable CHRONIC INDWELLING ESCUDERO CATHETER MAINTENANCE ISSUES -DVT prophylaxis; Lovenox 40 mg subcutaneous daily -GI prophylaxis; not indicated -Escudero catheter; chronic indwelling catheter -Nutrition; 2 g sodium diet -Nicotine dependence; not required CODE STATUS-FULL CODE ADMISSION STATUS-this patient will be admitted to observation status, expect no more than a one night hospital stay for evaluation and management of problems as outlined above. DISPOSITION-anticipate discharge to [facility]-way after the hospital stay. PRIMARY CARE PROVIDER-Dr. Walton
[2019-02-16] MEDS: Levofloxacin 250 MG Tab PO SCH (15:15)
[2019-02-16] MEDS: Enoxaparin 40 MG/0.4 ML Syringe SUBCUT SCH (20:07)
[2019-02-16] MEDS: Pravastatin 20 MG Tab PO SCH (20:08)
[2019-02-16] MEDS: Acetaminophen 325 MG Tab PO PRN (22:30)
[2019-02-17] MEDS: Losartan 50 MG Tab PO SCH (09:01)
[2019-02-17] MEDS: Aspirin 81 MG Tab.EC PO SCH (09:01)
[2019-02-17] MEDS: Lactobacillus Rhamnosus GG (Probiotic) Cap PO SCH ×2 (09:01→20:31)
[2019-02-17] MEDS: amLODIPine 10 MG Tab PO SCH (09:02)
[2019-02-17] MEDS: Furosemide 20 MG Tab PO SCH (09:02)
[2019-02-17] MEDS: Magnesium Oxide 400 MG Tab PO SCH ×2 (09:02→20:31)
--- NOTE | 2019-02-17 11:21 | PCM.PN ---
- General Info Date of Service: 02/17/19 Subjective Update: Mr. Monroy did experience recurrent temperature elevation last night. Fever was relatively modest and likely secondary to atelectasis. This is the only temperature elevation that he has experienced in the last 48 hours. He otherwise has been doing relatively well, slowly regaining strength with a good appetite. Because of his significant expressive aphasia he is unable to provide a meaningful history concerning recent symptoms or review of systems. - Patient Data Vitals - Most Recent: Last Vital Signs Temp 96.4 F 02/17/19 10:47 Pulse 83 02/17/19 10:47 Resp 18 02/17/19 10:47 BP 144/78 H 02/17/19 10:47 Pulse Ox 96 02/17/19 10:47 Weight - Most Recent: 278 lb 9.6 oz I&O - Last 24 Hours: Intake & Output 02/16/19 02/17/19 02/17/19 22:59 06:59 14:59 Intake Total 640 500 360 Output Total 200 550 500 Balance 440 -50 -140 Ady Results Last 24 Hours: Microbiology 02/13/19 17:36 Urine Culture - Final Urine, Escudero Cath (Indwelling) Gram Positive Rods Med Orders - Current: Current Medications Acetaminophen (Tylenol) 650 mg PO Q4H PRN PRN Reason: Pain (Mild 1-3)/fever Last Admin: 02/16/19 22:30 Dose: 650 mg Amlodipine Besylate (Norvasc) 10 mg PO DAILY [facility] Last Admin: 02/17/19 09:02 Dose: 10 mg Aspirin (Halfprin) 81 mg PO DAILY [facility] Last Admin: 02/17/19 09:01 Dose: 81 mg Enoxaparin Sodium (Lovenox) 40 mg SUBCUT Q24H [facility] Last Admin: 02/16/19 20:07 Dose: 40 mg Furosemide (Lasix) 20 mg PO DAILY [facility] Last Admin: 02/17/19 09:02 Dose: 20 mg Lactobacillus Rhamnosus (Culturelle) 1 cap PO BID [facility] Last Admin: 02/17/19 09:01 Dose: 1 cap Levofloxacin (Levaquin) 750 mg PO Q24H [facility] Last Admin: 02/16/19 15:15 Dose: 750 mg Losartan Potassium (Cozaar) 50 mg PO DAILY [facility] Last Admin: 02/17/19 09:01 Dose: 50 mg Magnesium Oxide (Magnesium Oxide) 400 mg PO BID [facility] Last Admin: 02/17/19 09:02 Dose: 400 mg Ondansetron HCl (Zofran) 4 mg IV Q4H PRN PRN Reason: Nausea/Vomiting Polyethylene Glycol (Miralax) 17 gm PO DAILY PRN PRN Reason: Constipation Pravastatin Sodium (Pravachol) 40 mg PO BEDTIME [facility] Last Admin: 02/16/19 20:08 Dose: 40 mg Sodium Chloride (Saline Flush) 10 ml FLUSH ASDIRECTED PRN PRN Reason: Keep Vein Open Discontinued Medications Amlodipine Besylate (Norvasc) 10 mg PO DAILY [facility] Last Admin: 02/16/19 08:32 Dose: 10 mg Enoxaparin Sodium (Lovenox) 40 mg SUBCUT DAILY [facility] Last Admin: 02/11/19 20:03 Dose: 40 mg Furosemide (Lasix) 20 mg PO DAILY [facility] Last Admin: 02/16/19 08:31 Dose: 20 mg Furosemide (Lasix) 40 mg IVPUSH NOW ONE Stop: 02/12/19 19:01 Last Admin: 02/12/19 18:14 Dose: 40 mg Sodium Chloride (Normal Saline) 1,000 mls @ 500 mls/hr IV ASDIRECTED [facility] Last Admin: 02/11/19 15:13 Dose: 500 mls/hr Magnesium Sulfate 2 gm/ Premix 50 mls @ 25 mls/hr IV Q6H [facility] Stop: 02/12/19 02:59 Last Admin: 02/12/19 00:02 Dose: 25 mls/hr Sodium Chloride (Normal Saline) 1,000 mls @ 100 mls/hr IV ASDIRECTED [facility] Last Admin: 02/11/19 22:39 Dose: 100 mls/hr Ceftriaxone Sodium 1 gm/ (Sodium Chloride) 50 mls @ 100 mls/hr IV Q24H [facility] Last Admin: 02/14/19 17:26 Dose: 100 mls/hr Influenza Virus Vaccine (Fluzone High-Dose 2019-20 Syringe) 180 mcg IM .ONCE ONE Stop: 02/12/19 10:01 Last Admin: 02/12/19 10:56 Dose: 180 mcg Losartan Potassium (Cozaar) 50 mg PO DAILY [facility] Last Admin: 02/16/19 08:29 Dose: 50 mg Pravastatin 40 Mg * (*Pom) 0 mg PO BEDTIME [facility] Last Admin: 02/15/19 21:09 Dose: 40 mg Potassium Chloride (Klor-Con M20) 40 meq PO ONETIME ONE Stop: 02/11/19 18:24 Last Admin: 02/11/19 19:59 Dose: 40 meq Potassium Chloride (Klor-Con M20) 40 meq PO ONETIME ONE Stop: 02/12/19 10:01 Last Admin: 02/12/19 10:57 Dose: 40 meq Potassium Chloride (Klor-Con M20) 40 meq PO ONETIME ONE Stop: 02/12/19 17:01 Last Admin: 02/12/19 18:05 Dose: 40 meq - Exam Quality Assessment: DVT Prophylaxis General: Alert, Cooperative, No Acute Distress Lungs: Clear to Auscultation, Normal Respiratory Effort Cardiovascular: Regular Rate, No Murmurs, Irregular Rhythm GI/Abdominal Exam: Soft, Non-Tender, No Organomegaly, No Distention Extremities: Non-Tender, Pedal Edema - Problem List & Annotations (1) Dementia SNOMED Code(s): 19823134 Code(s): F03.90 - UNSPECIFIED DEMENTIA WITHOUT BEHAVIORAL DISTURBANCE Status: Acute Current Visit: Yes (2) Generalized weakness SNOMED Code(s): 27877043 Code(s): R53.1 - WEAKNESS Status: Acute Current Visit: Yes (3) CVA, old, aphasia SNOMED Code(s): 255494723 Code(s): I69.320 - APHASIA FOLLOWING CEREBRAL INFARCTION Status: Acute Current Visit: Yes (4) History of atrial fibrillation SNOMED Code(s): 509251508 Code(s): Z86.79 - PERSONAL HISTORY OF OTHER DISEASES OF THE CIRCULATORY SYSTEM Status: Chronic Current Visit: No (5) Essential hypertension SNOMED Code(s): 80290080 Code(s): I10 - ESSENTIAL (PRIMARY) HYPERTENSION Status: Chronic Current Visit: No - Problem List Review Problem List Initiated/Reviewed/Updated: No - My Orders Last 24 Hours: My Active Orders 02/16/19 13:44 TERESA Bandage [Elastic Wrap] [OM.PC] Routine 02/16/19 21:00 Pravastatin [Pravachol] 40 mg PO BEDTIME 02/17/19 09:00 Furosemide [Lasix] 20 mg PO DAILY Losartan [Cozaar] 50 mg PO DAILY amLODIPine [Norvasc] 10 mg PO DAILY - Plan Plan:: ASSESSMENT AND PLAN GENERALIZED WEAKNESS-modest improvement in overall weakness -Physical therapy URINARY TRACT INFECTION -Culture growing gram-positive cocci -Levofloxacin 750 mg by mouth daily HISTORY OF PREVIOUS LEFT CVA-residual right-sided weakness and expressive aphasia appeared to be stable CHRONIC INDWELLING ESCUDERO CATHETER MAINTENANCE ISSUES -DVT prophylaxis; Lovenox 40 mg subcutaneous daily -GI prophylaxis; not indicated -Escudero catheter; chronic indwelling catheter -Nutrition; 2 g sodium diet -Nicotine dependence; not required CODE STATUS-FULL CODE ADMISSION STATUS-this patient will be admitted to observation status, expect no more than a one night hospital stay for evaluation and management of problems as outlined above. DISPOSITION-anticipate discharge to detention tomorrow PRIMARY CARE PROVIDER-Dr. Walton
--- NOTE | 2019-02-17 12:21 | PCM.DCSUM1 ---
Discharge Summary - Hospital Course Brief History: Mr. Monroy is a 78-year-old gentleman who was admitted through the emergency department observation status for management and evaluation of generalized weakness. - Discharge Data Discharge Date: 02/18/19 Discharge Disposition: DC/Tfer to SNF 03 Condition: Fair - Referral to Home Health Primary Care Physician: Bernadette Walton MD - Discharge Diagnosis/Problem(s) (1) Dementia SNOMED Code(s): 00506258 ICD Code: F03.90 - UNSPECIFIED DEMENTIA WITHOUT BEHAVIORAL DISTURBANCE Status: Acute Current Visit: Yes (2) Generalized weakness SNOMED Code(s): 26051744 ICD Code: R53.1 - WEAKNESS Status: Acute Current Visit: Yes (3) CVA, old, aphasia SNOMED Code(s): 202075686 ICD Code: I69.320 - APHASIA FOLLOWING CEREBRAL INFARCTION Status: Acute Current Visit: Yes (4) History of atrial fibrillation SNOMED Code(s): 200050159 ICD Code: Z86.79 - PERSONAL HISTORY OF OTHER DISEASES OF THE CIRCULATORY SYSTEM Status: Chronic Current Visit: No (5) Essential hypertension SNOMED Code(s): 91434792 ICD Code: I10 - ESSENTIAL (PRIMARY) HYPERTENSION Status: Chronic Current Visit: No (6) UTI (urinary tract infection) SNOMED Code(s): 46691487 ICD Code: N39.0 - URINARY TRACT INFECTION, SITE NOT SPECIFIED Status: Acute Current Visit: Yes - Patient Summary/Data Consults: Consultations 02/11/19 18:23 PT Evaluation and Treatment [CONS] Routine Please Evaluate and Treat. PT Reason for Consult: Weakness This query below is only for informational purposes and is not editable. Hospital Course: Mr. Monroy is a 78-year-old gentleman who was admitted to observation status through the emergency department because of generalized weakness. He has a known history of previous left CVA with residual right-sided weakness involving the right and lower extremity as well as mild right facial weakness and expressive aphasia. He had been staying with his daughter in [place] for the past month. Over the last 3 days they've been driving back to [place] from [place]. During the last 2 days his daughter and noted progressive generalized weakness, inability to stand and walk. Family has not noted new localized weakness, they did feel that he was having a hard time understanding directions. Patient also denies any new focal weakness. He has received IV fluids in the emergency Department for hydration. CT scan of the head shows evidence of his old CVA but no obvious new infarct. Family was unable to care for him at home so he was admitted to observation status for further evaluation and management of weakness. He received IV fluids and was seen daily by physical therapy. On initial evaluation in the emergency department, urinalysis was felt to show some evidence of infection. He was not initially treated with antibiotics because of no significant temperature elevation and normal white blood cell count. He does have a chronic indwelling West catheter because of underlying neurogenic bladder. Neuro checks were monitored during the first few days of hospital stay and showed no significant focal neurologic abnormalities. MRI of the brain was obtained in the day after admission and showed no evidence of acute CVA. He slowly improved and was felt to be ready for discharge on the with the plan for [facility] to [facility] the for restorative physical therapy and occupational therapy. On the evening of the he did develop significant temperature elevation. Blood cultures and urine culture were obtained and he was started on IV antibiotic therapy with ceftriaxone. Over the next few days he continued to have intermittent temperature elevations despite antibiotic therapy. Chest x-ray was obtained showing findings of possible atelectasis versus infiltrate although he had no significant respiratory symptoms. Blood cultures remain negative throughout his hospital stay, urine culture did grow gram-positive cocci not felt to require further identification or sensitivities. Because of persistent temperature elevations he was transitioned to antibiotic therapy with levofloxacin. After the change in antibiotic therapy he remained afebrile except for one isolated low-grade temperature which was felt to be secondary to atelectasis. He will be [facility] to the [facility] and receive an additional 3 day course of oral antibiotic therapy with levofloxacin. Follow-up labs including BMP and a Mg level will be obtained on Feb.21. While at the [facility] he will receive daily physical and occupational therapy. Follow-up with primary care will be as needed - Patient Instructions Diet: Low Sodium Activity: As Tolerated Other/Special Instructions: FU labs Feb.21; BMP, Mg. FU appt primary care w/in 1 week - Discharge Plan *PRESCRIPTION DRUG MONITORING PROGRAM REVIEWED*: Not Applicable *COPY OF PRESCRIPTION DRUG MONITORING REPORT IN PATIENT YAS: Not Applicable Prescriptions/Med Rec: Lactobacillus Rhamnosus GG [Culturelle] 1 cap PO BID #60 cap Levofloxacin [Levaquin] 750 mg PO DAILY #3 tablet Magnesium Oxide 400 mg PO BID #60 tablet Potassium Chloride 20 meq PO BID #60 tablet.er Home Medications: Home Meds Aspirin [Halfprin] 81 mg PO DAILY 05/11/18 [History] Losartan [Cozaar] 50 mg PO DAILY 05/11/18 [History] Polyethylene Glycol 3350 [MiraLAX] 1 pack PO ASDIRECTED PRN 05/11/18 [History] Pravastatin [Pravachol] 40 mg PO DAILY 05/11/18 [History] amLODIPine Besylate [Amlodipine Besylate] 10 mg PO DAILY 05/11/18 [History] Furosemide 20 mg PO DAILY 02/11/19 [History] Magnesium Oxide 400 mg PO BID #60 tablet 02/13/19 [Rx] Potassium Chloride 20 meq PO BID #60 tablet.er 02/13/19 [Rx] Lactobacillus Rhamnosus GG [Culturelle] 1 cap PO BID #60 cap 02/17/19 [Rx] Levofloxacin [Levaquin] 750 mg PO DAILY #3 tablet 02/17/19 [Rx] Referrals: Bernadette Walton MD [Primary Care Provider] - - Discharge Summary/Plan Comment DC Time >30 min.: No - Patient Data Vitals - Most Recent: Last Vital Signs Temp 96.4 F 02/17/19 10:47 Pulse 83 02/17/19 10:47 Resp 18 02/17/19 10:47 BP 144/78 H 02/17/19 10:47 Pulse Ox 96 02/17/19 10:47 Weight - Most Recent: 278 lb 9.6 oz I&O - Last 24 hours: Intake & Output 02/16/19 02/17/19 02/17/19 22:59 06:59 14:59 Intake Total 640 500 360 Output Total 200 550 500 Balance 440 -50 -140 Med Orders - Current: Current Medications Acetaminophen (Tylenol) 650 mg PO Q4H PRN PRN Reason: Pain (Mild 1-3)/fever Last Admin: 02/16/19 22:30 Dose: 650 mg Amlodipine Besylate (Norvasc) 10 mg PO DAILY [facility] Last Admin: 02/17/19 09:02 Dose: 10 mg Aspirin (Halfprin) 81 mg PO DAILY [facility] Last Admin: 02/17/19 09:01 Dose: 81 mg Enoxaparin Sodium (Lovenox) 40 mg SUBCUT Q24H [facility] Last Admin: 02/16/19 20:07 Dose: 40 mg Furosemide (Lasix) 20 mg PO DAILY [facility] Last Admin: 02/17/19 09:02 Dose: 20 mg Lactobacillus Rhamnosus (Culturelle) 1 cap PO BID [facility] Last Admin: 02/17/19 09:01 Dose: 1 cap Levofloxacin (Levaquin) 750 mg PO Q24H [facility] Last Admin: 02/16/19 15:15 Dose: 750 mg Losartan Potassium (Cozaar) 50 mg PO DAILY [facility] Last Admin: 02/17/19 09:01 Dose: 50 mg Magnesium Oxide (Magnesium Oxide) 400 mg PO BID [facility] Last Admin: 02/17/19 09:02 Dose: 400 mg Ondansetron HCl (Zofran) 4 mg IV Q4H PRN PRN Reason: Nausea/Vomiting Polyethylene Glycol (Miralax) 17 gm PO DAILY PRN PRN Reason: Constipation Pravastatin Sodium (Pravachol) 40 mg PO BEDTIME [facility] Last Admin: 02/16/19 20:08 Dose: 40 mg Sodium Chloride (Saline Flush) 10 ml FLUSH ASDIRECTED PRN PRN Reason: Keep Vein Open Discontinued Medications Amlodipine Besylate (Norvasc) 10 mg PO DAILY [facility] Last Admin: 02/16/19 08:32 Dose: 10 mg Enoxaparin Sodium (Lovenox) 40 mg SUBCUT DAILY [facility] Last Admin: 02/11/19 20:03 Dose: 40 mg Furosemide (Lasix) 20 mg PO DAILY [facility] Last Admin: 02/16/19 08:31 Dose: 20 mg Furosemide (Lasix) 40 mg IVPUSH NOW ONE Stop: 02/12/19 19:01 Last Admin: 02/12/19 18:14 Dose: 40 mg Sodium Chloride (Normal Saline) 1,000 mls @ 500 mls/hr IV ASDIRECTED [facility] Last Admin: 02/11/19 15:13 Dose: 500 mls/hr Magnesium Sulfate 2 gm/ Premix 50 mls @ 25 mls/hr IV Q6H [facility] Stop: 02/12/19 02:59 Last Admin: 02/12/19 00:02 Dose: 25 mls/hr Sodium Chloride (Normal Saline) 1,000 mls @ 100 mls/hr IV ASDIRECTED [facility] Last Admin: 02/11/19 22:39 Dose: 100 mls/hr Ceftriaxone Sodium 1 gm/ (Sodium Chloride) 50 mls @ 100 mls/hr IV Q24H [facility] Last Admin: 02/14/19 17:26 Dose: 100 mls/hr Influenza Virus Vaccine (Fluzone High-Dose 2019-20 Syringe) 180 mcg IM .ONCE ONE Stop: 02/12/19 10:01 Last Admin: 02/12/19 10:56 Dose: 180 mcg Losartan Potassium (Cozaar) 50 mg PO DAILY [facility] Last Admin: 02/16/19 08:29 Dose: 50 mg Pravastatin 40 Mg * (*Pom) 0 mg PO BEDTIME [facility] Last Admin: 02/15/19 21:09 Dose: 40 mg Potassium Chloride (Klor-Con M20) 40 meq PO ONETIME ONE Stop: 02/11/19 18:24 Last Admin: 02/11/19 19:59 Dose: 40 meq Potassium Chloride (Klor-Con M20) 40 meq PO ONETIME ONE Stop: 02/12/19 10:01 Last Admin: 02/12/19 10:57 Dose: 40 meq Potassium Chloride (Klor-Con M20) 40 meq PO ONETIME ONE Stop: 02/12/19 17:01 Last Admin: 02/12/19 18:05 Dose: 40 meq - Exam General: Reports: Alert, Cooperative, No Acute Distress Lungs: Reports: Clear to Auscultation, Normal Respiratory Effort Cardiovascular: Reports: Regular Rate, Regular Rhythm, No Murmurs GI/Abdominal Exam: Soft, Non-Tender, No Organomegaly, No Distention Extremities: Non-Tender, Pedal Edema
[2019-02-17] MEDS: Levofloxacin 250 MG Tab PO SCH (15:22)
[2019-02-17] MEDS: Enoxaparin 40 MG/0.4 ML Syringe SUBCUT SCH (20:31)
[2019-02-17] MEDS: Pravastatin 20 MG Tab PO SCH (20:31)
[2019-02-17] MEDS: Acetaminophen 325 MG Tab PO PRN (23:04)
[2019-02-18] MEDS: Dimethicone 20%/Zinc Oxide 25% 56 GM Spray Bottle TOP ONE ×2 (00:24→00:25)
[2019-02-18] MEDS ORDERED: Dimethicone 20%/Zinc Oxide 25% 56 GM Spray Bottle TOP PRN (00:25)
[2019-02-18] MEDS: Aspirin 81 MG Tab.EC PO SCH (08:57)
[2019-02-18] MEDS: Magnesium Oxide 400 MG Tab PO SCH (08:57)
[2019-02-18] MEDS: amLODIPine 10 MG Tab PO SCH (08:57)
[2019-02-18] MEDS: Losartan 50 MG Tab PO SCH (08:57)
[2019-02-18] MEDS: Furosemide 20 MG Tab PO SCH (08:57)
[2019-02-18] MEDS: Acetaminophen 325 MG Tab PO PRN (08:57)
[2019-02-18] MEDS: Lactobacillus Rhamnosus GG (Probiotic) Cap PO SCH (08:58)
== END 2019-02-18 12:54 | DRG 699 ==
LOC: JP.ED 13:51 → JP.MS 17:56 → OBSVTOIN 02-14 08:00
PROVIDERS: ADMIT Hospitalist; ATTEND Internal Medicine
DX: R53.1 Weakness (principal); T83.511A Infection and inflammatory reaction due to indwelling urethral catheter, initial encounter; R50.9 Fever, unspecified; J98.11 Atelectasis; I69.351 Hemiplegia and hemiparesis following cerebral infarction affecting right dominant side; Z68.41 Body mass index [BMI] 40.0-44.9, adult; Z93.6 Other artificial openings of urinary tract status; N39.0 Urinary tract infection, site not specified; H54.7 Unspecified visual loss; H40.9 Unspecified glaucoma; E78.00 Pure hypercholesterolemia, unspecified; I10 Essential (primary) hypertension; E66.9 Obesity, unspecified; M19.90 Unspecified osteoarthritis, unspecified site; Z96.649 Presence of unspecified artificial hip joint; F03.90 Unspecified dementia, unspecified severity, without behavioral disturbance, psychotic disturbance, mood disturbance, and anxiety; Z79.899 Other long term (current) drug therapy; Z86.79 Personal history of other diseases of the circulatory system; Z79.82 Long term (current) use of aspirin; Z23 Encounter for immunization; Z90.49 Acquired absence of other specified parts of digestive tract; Z88.2 Allergy status to sulfonamides; I48.91 Unspecified atrial fibrillation; I69.320 Aphasia following cerebral infarction
CPT/HCPCS: 36415 ×3; 70450 ×2; 70551; 80048; 80053; 81001 ×2; 83735 ×2; 84132; 85025 ×2; 87086; 90662; 96360; 96361; 97110 ×2; 97161; 97530 ×2; 99284; 99285; A9270 ×22; G0008; J0696; J1650 ×3; J1940; J3475 ×2; J7030 ×2; J7050; 71046; 96365; 96366; 96367; 96372; 96375; 96376; G0378

== ENCOUNTER 2020-05-02 17:09 | Emergency (ER) | payer MEDICARE, BC ==
--- NOTE | 2020-05-02 17:39 | EDM.PDOC ---
ED HPI GENERAL MEDICAL PROBLEM - General Chief Complaint: Genitourinary Problem Stated Complaint: CATHETER ISSUES VIA [facility] Time Seen by Provider: 05/02/20 17:19 Source of Information: Reports: EMS, Other ([facility] home health nurse) History Limitations: Reports: Other (Patient has chronic dementia) - History of Present Illness INITIAL COMMENTS - FREE TEXT/NARRATIVE: Fly is an 80-year-old male with chronic dementia who is brought in by [facility] ambulance for evaluation of urinary catheter malfunction. The patient had his catheter changed out twice at the home today by the [facility] home nurse, however, it was still not functioning properly. The patient has been having increasing leaking around the catheter for about the last 3 weeks and now has resulted in an intertrigo in the perineum. The patient normally sees Javed Ornelas in the [facility] but is not scheduled to see him until later this week. The patient also receives care at the [facility] in [place]. In addition to the dementia, the patient is also paraplegic and the catheter is for a neurogenic bladder. The [facility] is also a requesting that we check the patient's labs as he is prone to hypomagnesemia and hypokalemia. - Related Data Allergies Allergy/AdvReac Type Severity Reaction Status Date / Time atenolol Allergy Cannot Verified 05/02/20 17:25 Remember atorvastatin Allergy Cannot Verified 05/02/20 17:25 Remember Sulfa (Sulfonamide Allergy Other Verified 02/11/19 14:04 Antibiotics) Home Meds: Home Meds Aspirin [Halfprin] 81 mg PO DAILY 05/11/18 [History] Losartan [Cozaar] 50 mg PO DAILY 05/11/18 [History] Pravastatin [Pravachol] 40 mg PO DAILY 05/11/18 [History] amLODIPine Besylate [Amlodipine Besylate] 10 mg PO DAILY 05/11/18 [History] polyethylene glycoL 3350 [MiraLAX] 1 pack PO ASDIRECTED PRN 05/11/18 [History] Furosemide 20 mg PO DAILY 02/11/19 [History] Magnesium Oxide 400 mg PO BID #60 tablet 02/13/19 [Rx] Potassium Chloride 20 meq PO BID #60 tablet.er 02/13/19 [Rx] Lactobacillus Rhamnosus GG [Culturelle] 1 cap PO BID #60 cap 02/17/19 [Rx] levoFLOXacin [Levaquin] 750 mg PO DAILY #3 tablet 02/17/19 [Rx] Past Medical History HEENT History: Reports: Glaucoma, Impaired Vision Cardiovascular History: Reports: High Cholesterol, Hypertension Gastrointestinal History: Reports: None Genitourinary History: Reports: Prostate Disorder Other Genitourinary History: 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, Musculoskeletal History: Reports: Arthritis Neurological History: Reports: TIA, Other (See Below) Other Neuro History: 2017- stroke Psychiatric History: Reports: Dementia Endocrine/Metabolic History: Reports: Obesity/BMI 30+ - Infectious Disease History Infectious Disease History: Reports: Chicken Pox - Past Surgical History Head Surgeries/Procedures: Reports: None HEENT Surgical History: Reports: None Cardiovascular Surgical History: Reports: None GI Surgical History: Reports: Cholecystectomy Endocrine Surgical History: Reports: None Neurological Surgical History: Reports: None Musculoskeletal Surgical History: Reports: Hip Replacement Dermatological Surgical History: Reports: None Social & Family History - Family History Family Medical History: No Pertinent Family History - Caffeine Use Caffeine Use: Reports: Coffee ED ROS GENERAL - Review of Systems Review Of Systems: Unable To Obtain Reason Not Obtained: Patient has advanced dementia. [facility] answers questions for him. : Reports: Other (Malfunctioning Hernandez catheter with leakage around the Hernandez and no urine going into the leg bag.) Skin: Reports: Rash (Erythematous rash in the groin and buttock cleft. The reports that this is improved since the patient was started on a salve by his primary doctor at the [facility].) ED EXAM, RENAL/ - Physical Exam Exam: See Below Exam Limited By: No Limitations General Appearance: Alert, No Apparent Distress, Anxious Eye Exam: Bilateral Eye: EOMI, PERRL Head: Atraumatic, Normocephalic Respiratory/Chest: No Respiratory Distress, Lungs Clear, Normal Breath Sounds Cardiovascular: Normal Peripheral Pulses, Regular Rate, Rhythm, No Murmur GI/Abdominal: Normal Bowel Sounds, Soft, Non-Tender (Male) Exam: Other (18-gauge red rubber Hernandez in place. There was significant pannus on the reflex valve of the leg bag prohibiting drainage of urine into the bag and likely causing leakage of urine around the catheter.). No: Penile Lesions Rectal (Males) Exam: Other (Erythematous lesion on the buttock cleft consistent with intertrigo. There is no active weeping at this time. 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 I reviewed his previous lab values and they have all been in the 7 teens and high 16s consistent with polycythemia rubra vera. Urinalysis also shows positive leukocyte esterase and 45-50 WBCs with 30- 40 RBCs. This is a indwelling Hernandez catheter sample and is likely colonization, however, the patient does go on a 3-day course of ciprofloxacin with any catheter change. We will get a urine culture to assess for this. 05/02/20 18:05 comprehensive metabolic panel and magnesium were also reviewed and show no significant abnormalities with a magnesium of 2.1. Patient sodium is 139. At this time, I believe the patient is suitable for discharge home. I would continue to use the salve that is prescribed by the doctor from the [facility] for the intertrigo. Indications return to the ED were discussed. Hernandez appears to be draining normally at this time. Departure - Departure Time of Disposition: 18:09 Disposition: Home, Self-Care 01 Condition: Good Clinical Impression: Chronic indwelling Hernandez catheter, Neurogenic bladder, Paraplegia, Polycythemia rubra vera Dementia Qualifiers: Dementia type: unspecified type Dementia behavioral disturbance: without behavioral disturbance Qualified Code(s): F03.90 - Unspecified dementia without behavioral disturbance - Discharge Information *PRESCRIPTION DRUG MONITORING PROGRAM REVIEWED*: Not Applicable *COPY OF PRESCRIPTION DRUG MONITORING REPORT IN PATIENT YAS: Not Applicable Instructions: Dementia, Indwelling Urinary Catheter Care, Adult Referrals: Bernadette Walton MD [Primary Care Provider] - Care Plan Goals: It appears that your Hernandez catheter is not functioning properly. There is currently pending as there were a number of white and red blood cells in the urine. Please initiate a 3-day Cipro regiment as you typically do with a catheter change. If it comes back that the organisms in the urine are resistant to Cipro, you will be notified of that and the appropriate antibiotic will be prescribed at that time. Continue to use the salve prescribed by the [facility] doctor for the intertrigo in the groin and buttock region. His labs otherwise today look relatively normal with a magnesium of 2.1. - Problem List & Annotations (1) Dementia SNOMED Code(s): 99908649 Code(s): F03.90 - UNSPECIFIED DEMENTIA WITHOUT BEHAVIORAL DISTURBANCE Status: Chronic Priority: Medium Current Visit: Yes Qualifiers: Dementia type: unspecified type Dementia behavioral disturbance: without behavioral disturbance Qualified Code(s): F03.90 - Unspecified dementia without behavioral disturbance (2) Chronic indwelling Hernandez catheter SNOMED Code(s): 543657527 Code(s): Z97.8 - PRESENCE OF OTHER SPECIFIED DEVICES Status: Chronic Priority: Medium Current Visit: Yes (3) Neurogenic bladder SNOMED Code(s): 562685663 Code(s): N31.9 - NEUROMUSCULAR DYSFUNCTION OF BLADDER, UNSPECIFIED Status: Chronic Priority: Medium Current Visit: Yes (4) Paraplegia SNOMED Code(s): 21587272 Code(s): G82.20 - PARAPLEGIA, UNSPECIFIED Status: Chronic Priority: Medium Current Visit: Yes (5) Polycythemia rubra vera SNOMED Code(s): 177236247 Code(s): D45 - POLYCYTHEMIA VERA Status: Chronic Priority: Medium Current Visit: Yes - Problem List Review Problem List Initiated/Reviewed/Updated: Yes - My Orders Last 24 Hours: My Active Orders 05/02/20 17:25 CBC WITH AUTO DIFF [HEME] Stat COMPREHENSIVE METABOLIC PN,CMP [CHEM] Stat MAGNESIUM [CHEM] Stat UA W/MICROSCOPIC [URIN] Stat - Assessment/Plan Last 24 Hours: My Active Orders 05/02/20 17:25 CBC WITH AUTO DIFF [HEME] Stat COMPREHENSIVE METABOLIC PN,CMP [CHEM] Stat MAGNESIUM [CHEM] Stat UA W/MICROSCOPIC [URIN] Stat
== END 2020-05-02 19:50 | disposition home or self-care (01) ==
LOC: JP.ED 17:09
DX: T83.038A Leakage of other urinary catheter, initial encounter (principal); N31.9 Neuromuscular dysfunction of bladder, unspecified; G82.20 Paraplegia, unspecified; D45 Polycythemia vera; F03.90 Unspecified dementia, unspecified severity, without behavioral disturbance, psychotic disturbance, mood disturbance, and anxiety; I10 Essential (primary) hypertension; E78.00 Pure hypercholesterolemia, unspecified; M19.90 Unspecified osteoarthritis, unspecified site; E66.9 Obesity, unspecified; Z68.39 Body mass index [BMI] 39.0-39.9, adult; Z88.8 Allergy status to other drugs, medicaments and biological substances; Z88.2 Allergy status to sulfonamides; Z79.82 Long term (current) use of aspirin; Z79.899 Other long term (current) drug therapy
CPT/HCPCS: 36415; 80053; 81001; 83735; 85025; 87086; 87088; 87186; 99283

== ENCOUNTER 2020-11-19 18:04 | Inpatient (IN) | payer MEDICARE, BC ==
--- NOTE | 2020-11-19 19:07 | EDM.PDOC ---
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 He ate a full breakfast, was feeling fine, but afterwards his teeth started chattering and he has been febrile and somewhat confused all day. Not drinking as much water as he usually does but no nausea or vomiting. He had some diarrhea 2 days ago but that is improved. He was on an antibiotic for his chronic indwelling catheter but they stopped that recently. He is a full code. - Related Data Allergies Allergy/AdvReac Type Severity Reaction Status Date / Time atenolol Allergy Unknown Cannot Verified 11/19/20 18:32 Remember atorvastatin Allergy Unknown Cannot Verified 11/19/20 18:32 Remember Sulfa (Sulfonamide Allergy Unknown Other Verified 11/19/20 18:32 Antibiotics) Home Meds: Home Meds Aspirin [Halfprin] 81 mg PO DAILY 05/11/18 [History] Losartan [Cozaar] 50 mg PO DAILY 05/11/18 [History] Pravastatin [Pravachol] 40 mg PO DAILY 05/11/18 [History] amLODIPine Besylate [Amlodipine Besylate] 10 mg PO DAILY 05/11/18 [History] polyethylene glycoL 3350 [MiraLAX] 1 pack PO ASDIRECTED PRN 05/11/18 [History] Furosemide 40 mg PO DAILY 02/11/19 [History] Magnesium Oxide 400 mg PO BID #60 tablet 02/13/19 [Rx] Potassium Chloride 20 meq PO BID #60 tablet.er 02/13/19 [Rx] Acetaminophen [Pain Relief] 325 mg PO TID PRN 11/19/20 [History] Acetaminophen/HYDROcodone [HYDROcodone-Acetaminophen 5-325 MG *] 1 tab PO BID PRN 11/19/20 [History] Ketoconazole [Ketoconazole 2%] 1 applic TOP BID 11/19/20 [History] Loperamide [Imodium AD] 2 mg PO ASDIRECTED PRN 11/19/20 [History] Timolol [Betimol] 1 drop OP BEDTIME 11/19/20 [History] Past Medical History HEENT History: Reports: Glaucoma, Impaired Vision Cardiovascular History: Reports: High Cholesterol, Hypertension Gastrointestinal History: Reports: None Genitourinary History: Reports: Prostate Disorder Other Genitourinary History: 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, Musculoskeletal History: Reports: Arthritis Neurological History: Reports: CVA, TIA, Other (See Below) Other Neuro History: 2017- stroke Psychiatric History: Reports: Dementia Endocrine/Metabolic History: Reports: Obesity/BMI 30+ - Infectious Disease History Infectious Disease History: Reports: Chicken Pox - Past Surgical History Head Surgeries/Procedures: Reports: None HEENT Surgical History: Reports: None Cardiovascular Surgical History: Reports: None GI Surgical History: Reports: Cholecystectomy Endocrine Surgical History: Reports: None Neurological Surgical History: Reports: None Musculoskeletal Surgical History: Reports: Hip Replacement Dermatological Surgical History: Reports: None Social & Family History - Family History Family Medical History: No Pertinent Family History - Tobacco Use Tobacco Use Status *Q: Unknown Ever Used Tobacco - Caffeine Use Caffeine Use: Reports: Coffee ED ROS GENERAL - Review of Systems Review Of Systems: See Below (Review of systems obtained from his , he is unable to give consistent answers to date aphasia) Constitutional: Reports: Fever, Chills, Malaise, Decreased Appetite Respiratory: Reports: Shortness of Breath Cardiovascular: Denies: Chest Pain GI/Abdominal: Reports: Diarrhea (Had diarrhea 2 days ago). Denies: Nausea, Vomiting : Reports: Other (Urine is cloudy, has an indwelling catheter) Skin: Reports: Other (Recurring erythema of the left lower leg is not new) Neurological: Reports: Other (Chronic right-sided weakness and significant aphasia) ED EXAM, GENERAL - Physical Exam Exam: See Below Exam Limited By: Physical Impairment (Patient significantly aphasic) General Appearance: Alert, No Apparent Distress Eye Exam: Bilateral Eye: Normal Inspection (Hydration appears normal, EOMs intact) Throat/Mouth: Normal Inspection Respiratory/Chest: No Respiratory Distress, Lungs Clear Cardiovascular: Regular Rate, Rhythm. No: Tachycardia GI/Abdominal: Other (Abdomen is obese, he does react with tenderness to palpation diffusely, no focal guarding or rebound) Extremities: Other (Pitting edema in both lower extremities with erythema and slight warmth around the left lower extremity) Neurological: Alert, Other (Significant right-sided weakness and expressive aphasia due to past CVA) Course - Vital Signs Last Recorded V/S: Last Vital Signs Temp 98.9 F 11/19/20 22:54 Pulse 85 11/19/20 21:23 Resp 22 H 11/19/20 21:23 BP 103/64 11/19/20 21:23 Pulse Ox 92 L 11/19/20 21:23 - Orders/Labs/Meds Orders: Active Orders 24 hr Category Date Time Status Hernandez Catheter Insertion [Insert Urinary Catheter] [OM. Care 11/19/20 20:45 Ordered PC] Q24H Urinary Catheter Assessment [RC] ASDIRECTED Care 11/19/20 20:39 Active Chest 1V Frontal [CR] Stat Exams 11/19/20 18:31 Taken CULTURE BLOOD [BC] Urgent Lab 11/19/20 18:49 Received CULTURE BLOOD [BC] Urgent Lab 11/19/20 19:18 Received Sodium Chloride 0.9% [Normal Saline] 1,000 ml Med 11/19/20 20:30 Active IV ASDIRECTED Blood Culture x2 Reflex Set [OM.PC] Urgent Oth 11/19/20 18:29 Ordered Medication Orders Acetaminophen (Acetaminophen 325 Mg Tab) 650 mg PO Q4H PRN PRN Reason: Pain (Mild 1-3)/fever Last Admin: 11/19/20 22:24 Dose: 650 mg Documented by: JAMISON Hydrocodone Bitart/Acetaminophen (Acetaminophen/Hydrocodone 325-5 Mg Tab) 1 tab PO Q4H PRN PRN Reason: Pain (moderate 4-6) Amlodipine Besylate (Amlodipine 5 Mg Tab) 10 mg PO DAILY JOHN Bisacodyl (Bisacodyl 5 Mg Tab) 5 mg PO DAILY PRN PRN Reason: Constipation Last Admin: 11/19/20 22:23 Dose: 5 mg Documented by: JAMISON Docusate Sodium (Docusate Sodium 100 Mg Cap) 100 mg PO BID PRN PRN Reason: Constipation Last Admin: 11/19/20 22:21 Dose: 100 mg Documented by: JAMISON Enoxaparin Sodium (Enoxaparin 40 Mg/0.4 Ml Syringe) 40 mg SUBCUT DAILY JOHN Furosemide (Furosemide 20 Mg Tab) 40 mg PO DAILY JOHN Sodium Chloride (Normal Saline) 1,000 mls @ 500 mls/hr IV ASDIRECTED [facility] Last Admin: 11/19/20 20:26 Dose: 500 mls/hr Documented by: CHLOE Ceftriaxone Sodium 1 gm/ (Sodium Chloride) 50 mls @ 100 mls/hr IV Q24H [facility] Sodium Chloride (Normal Saline) 1,000 mls @ 100 mls/hr IV ASDIRECTED [facility] Last Admin: 11/19/20 22:33 Dose: 100 mls/hr Documented by: JAMISON Ketoconazole (Ketoconazole 2% Crm 30 Gm Tube) 0 gm TOP BID [facility] Last Admin: 11/19/20 22:24 Dose: Not Given Documented by: JAMISON Loperamide HCl (Loperamide 2 Mg Cap) 2 mg PO ASDIRECTED PRN PRN Reason: Diarrhea Losartan Potassium (Losartan 50 Mg Tab) 50 mg PO DAILY [facility] Magnesium Oxide (Magnesium Oxide 400 Mg Tab) 400 mg PO BID [facility] Last Admin: 11/19/20 22:25 Dose: 400 mg Documented by: JAMISON Morphine Sulfate (Morphine 2 Mg/Ml Syringe) 2 mg IVPUSH Q2H PRN PRN Reason: Pain (severe 7-10) Non-Formulary Medication (Timolol [Betimol 0.5% Ophth Soln]) 1 drop OP BEDTIME [facility] Ondansetron HCl (Ondansetron 4 Mg Tab.Dis) 4 mg PO Q6H PRN PRN Reason: Nausea able to take PO Pantoprazole Sodium (Pantoprazole 40 Mg Vial) 40 mg IV BEDTIME [facility] Last Admin: 11/19/20 22:24 Dose: 40 mg Documented by: JAMISON Polyethylene Glycol (Polyethylene Glycol 3350 Powder 17 Gm Packet) 17 gm PO ASDIRECTED PRN PRN Reason: Constipation Potassium Chloride (Potassium Chloride 20 Meq Tab.Er) 20 meq PO BID [facility] Last Admin: 11/19/20 22:23 Dose: 20 meq Documented by: JAMISON Pravastatin Sodium (Pravastatin 20 Mg Tab) 40 mg PO DAILY [facility] Labs: Laboratory Tests 11/19/20 11/19/20 11/19/20 Range/Units 18:27 19:00 19:15 WBC 20.3 H (4.5-11.0) K/uL RBC 6.46 H (4.30-5.90) M/uL Hgb 19.0 H* (12.0-15.0) g/dL Hct 55.1 H (40.0-54.0) % MCV 85 (80-98) fL MCH 29 (27-31) pg MCHC 35 (32-36) % Plt Count 170 (150-400) K/uL Add Manual Diff Yes Neutrophils % (Manual) 83 H (36-66) % Band Neutrophils % 4 L (5-11) % Lymphocytes % (Manual) 3 L (24-44) % Monocytes % (Manual) 10 H (2-6) % Sodium (140-148) mmol/L Potassium (3.6-5.2) mmol/L Chloride (100-108) mmol/L Carbon Dioxide (21-32) mmol/L Anion Gap (5.0-14.0) mmol/L BUN (7-18) mg/dL Creatinine (0.8-1.3) mg/dL Est Cr Clr Drug Dosing mL/min Estimated GFR (MDRD) (>60) Glucose (74-106) mg/dL Lactic Acid (0.4-2.0) mmol/L Calcium (8.5-10.1) mg/dL Total Bilirubin (0.2-1.0) mg/dL AST (15-37) U/L ALT (12-78) U/L Alkaline Phosphatase (46-116) U/L Total Protein (6.4-8.2) g/dL Albumin (3.4-5.0) g/dL Globulin (2.3-3.5) g/dL Albumin/Globulin Ratio (1.2-2.2) Urine Color Yellow (YELLOW) Urine Appearance Turbid A (CLEAR) Urine pH 6.0 (5.0-8.0) Ur Specific Stebbins 1.015 (1.008-1.030) Urine Protein 100 H (NEGATIVE) mg/dL Urine Glucose (UA) Negative (NEGATIVE) mg/dL Urine Ketones Negative (NEGATIVE) mg/dL Urine Occult Blood Moderate H (NEGATIVE) Urine Nitrite Positive H (NEGATIVE) Urine Bilirubin Negative (NEGATIVE) Urine Urobilinogen 1.0 (0.2-1.0) EU/dL Ur Leukocyte Esterase Large H (NEGATIVE) Urine RBC Not seen (0-5) Urine WBC 20-30 H (0-5) Ur Epithelial Cells Rare Amorphous Sediment Not seen Urine Bacteria Many Urine Mucus Not seen Urine Other SARS CoV-2 RNA Rapid CHRIS Negative 11/19/20 11/19/20 Range/Units 19:15 19:18 WBC (4.5-11.0) K/uL RBC (4.30-5.90) M/uL Hgb (12.0-15.0) g/dL Hct (40.0-54.0) % MCV (80-98) fL MCH (27-31) pg MCHC (32-36) % Plt Count (150-400) K/uL Add Manual Diff Neutrophils % (Manual) (36-66) % Band Neutrophils % (5-11) % Lymphocytes % (Manual) (24-44) % Monocytes % (Manual) (2-6) % Sodium 135 L (140-148) mmol/L Potassium 4.1 (3.6-5.2) mmol/L Chloride 98 L (100-108) mmol/L Carbon Dioxide 29 (21-32) mmol/L Anion Gap 12.1 (5.0-14.0) mmol/L BUN 19 H (7-18) mg/dL Creatinine 1.5 H (0.8-1.3) mg/dL Est Cr Clr Drug Dosing 39.28 mL/min Estimated GFR (MDRD) 45 L (>60) Glucose 112 H (74-106) mg/dL Lactic Acid 1.5 (0.4-2.0) mmol/L Calcium 9.0 (8.5-10.1) mg/dL Total Bilirubin 1.2 H (0.2-1.0) mg/dL AST 18 (15-37) U/L ALT 23 (12-78) U/L Alkaline Phosphatase 79 (46-116) U/L Total Protein 7.4 (6.4-8.2) g/dL Albumin 3.2 L (3.4-5.0) g/dL Globulin 4.2 H (2.3-3.5) g/dL Albumin/Globulin Ratio 0.8 L (1.2-2.2) Urine Color (YELLOW) Urine Appearance (CLEAR) Urine pH (5.0-8.0) Ur Specific Stebbins (1.008-1.030) Urine Protein (NEGATIVE) mg/dL Urine Glucose (UA) (NEGATIVE) mg/dL Urine Ketones (NEGATIVE) mg/dL Urine Occult Blood (NEGATIVE) Urine Nitrite (NEGATIVE) Urine Bilirubin (NEGATIVE) Urine Urobilinogen (0.2-1.0) EU/dL Ur Leukocyte Esterase (NEGATIVE) Urine RBC (0-5) Urine WBC (0-5) Ur Epithelial Cells Amorphous Sediment Urine Bacteria Urine Mucus Urine Other SARS CoV-2 RNA Rapid CHRIS Meds: Medications Generic Name Dose Route Start Last Admin Trade Name Freq PRN Reason Stop Dose Admin Acetaminophen 650 mg 11/19/20 21:25 11/19/20 22:24 Acetaminophen 325 Mg Tab PO 650 mg Q4H PRN Administration Pain (Mild 1-3)/fever Hydrocodone Bitart/Acetaminophen 1 tab 11/19/20 21:25 Acetaminophen/Hydrocodone 325-5 Mg Tab PO Q4H PRN Pain (moderate 4-6) Amlodipine Besylate 10 mg 11/20/20 09:00 Amlodipine 5 Mg Tab PO DAILY JOHN Bisacodyl 5 mg 11/19/20 21:25 11/19/20 22:23 Bisacodyl 5 Mg Tab PO 5 mg DAILY PRN Administration Constipation Docusate Sodium 100 mg 11/19/20 21:25 11/19/20 22:21 Docusate Sodium 100 Mg Cap PO 100 mg BID PRN Administration Constipation Enoxaparin Sodium 40 mg 11/20/20 09:00 Enoxaparin 40 Mg/0.4 Ml Syringe SUBCUT DAILY [facility] Furosemide 40 mg 11/20/20 09:00 Furosemide 20 Mg Tab PO DAILY JOHN Sodium Chloride 1,000 mls @ 500 mls/hr 11/19/20 20:30 11/19/20 20:26 Normal Saline IV 500 mls/hr ASDIRECTED JOHN Administration Ceftriaxone Sodium 1 gm/ 50 mls @ 100 mls/hr 11/20/20 09:10 Sodium Chloride IV Q24H JOHN Sodium Chloride 1,000 mls @ 100 mls/hr 11/19/20 21:25 11/19/20 22:33 Normal Saline IV 100 mls/hr ASDIRECTED JOHN Administration Ketoconazole 0 gm 11/19/20 21:25 11/19/20 22:24 Ketoconazole 2% Crm 30 Gm Tube TOP Not Given BID JOHN Loperamide HCl 2 mg 11/19/20 21:25 Loperamide 2 Mg Cap PO ASDIRECTED PRN Diarrhea Losartan Potassium 50 mg 11/20/20 09:00 Losartan 50 Mg Tab PO DAILY JOHN Magnesium Oxide 400 mg 11/19/20 21:25 11/19/20 22:25 Magnesium Oxide 400 Mg Tab PO 400 mg BID JOHN Administration Morphine Sulfate 2 mg 11/19/20 21:25 Morphine 2 Mg/Ml Syringe IVPUSH Q2H PRN Pain (severe 7-10) Non-Formulary Medication 1 drop 11/19/20 21:25 Timolol [Betimol 0.5% Ophth Soln] OP BEDTIME JOHN Ondansetron HCl 4 mg 11/19/20 21:25 Ondansetron 4 Mg Tab.Dis PO Q6H PRN Nausea able to take PO Pantoprazole Sodium 40 mg 11/19/20 21:25 11/19/20 22:24 Pantoprazole 40 Mg Vial IV 40 mg BEDTIME JOHN Administration Polyethylene Glycol 17 gm 11/19/20 21:25 Polyethylene Glycol 3350 Powder 17 Gm Packet PO ASDIRECTED PRN Constipation Potassium Chloride 20 meq 11/19/20 21:25 11/19/20 22:23 Potassium Chloride 20 Meq Tab.Er PO 20 meq BID JOHN Administration Pravastatin Sodium 40 mg 11/20/20 09:00 Pravastatin 20 Mg Tab PO DAILY JOHN Discontinued Medications Generic Name Dose Route Start Last Admin Trade Name Freq PRN Reason Stop Dose Admin Ceftriaxone Sodium 2 gm/ 50 mls @ 100 mls/hr 11/19/20 19:21 11/19/20 19:40 Sodium Chloride IV 11/19/20 19:50 100 mls/hr ONETIME ONE Administration - Re-Assessments/Exams Free Text/Narrative Re-Assessment/Exam: 11/19/20 20:16 Blood cultures, UA, CBC CMP and lactic acid were obtained. After blood cultures were drawn patient was given 2 g Rocephin IV as his urine showed many bacteria, nitrite positive urine and WBCs. White count was 20,000, lactic acid was normal. This patient likely has a fever from a urinary tract infection but is not in overt sepsis at this time. 11/19/20 20:19 Portable chest x-ray was done which showed stable cardiomegaly, no infiltrates. 11/19/20 20:22 Covid is negative, creatinine is slightly higher than his baseline and GFR slightly lower so fluids will be given. Normal saline was started at 500 cc an hour. Katherin Jaramillo of the hospitalist service was kind enough to visit with the patient and his to admit to the medical floor for treatment for UTI and possible bacteremia. Departure - Departure Time of Disposition: 20:48 Disposition: Admitted As Inpatient 66 Clinical Impression: CVA, old, aphasia UTI (urinary tract infection) Qualifiers: Urinary tract infection type: catheter-associated UTI Indwelling urinary catheter type: indwelling urethral catheter Encounter type: initial encounter Qualified Code(s): T83.511A - Infection and inflammatory reaction due to indwelling urethral catheter, initial encounter; N39.0 - Urinary tract infection, site not specified Fever Qualifiers: Encounter type: initial encounter - Discharge Information Sepsis Event Note (ED) - Evaluation Sepsis Screening Result: Possible Sepsis Risk - Focused Exam Vital Signs: Vital Signs Temp Pulse Resp BP Pulse Ox 11/19/20 20:30 100.5 F 82 18 130/64 94 L 11/19/20 18:13 98.9 F 101 H 22 H 115/64 90 L - My Orders Last 24 Hours: My Active Orders 11/19/20 18:29 Blood Culture x2 Reflex Set [OM.PC] Urgent 11/19/20 18:31 Chest 1V Frontal [CR] Stat 11/19/20 18:49 CULTURE BLOOD [BC] Urgent 11/19/20 19:18 CULTURE BLOOD [BC] Urgent 11/19/20 20:30 Sodium Chloride 0.9% [Normal Saline] 1,000 ml IV ASDIRECTED - Assessment/Plan Last 24 Hours: My Active Orders 11/19/20 18:29 Blood Culture x2 Reflex Set [OM.PC] Urgent 11/19/20 18:31 Chest 1V Frontal [CR] Stat 11/19/20 18:49 CULTURE BLOOD [BC] Urgent 11/19/20 19:18 CULTURE BLOOD [BC] Urgent 11/19/20 20:30 Sodium Chloride 0.9% [Normal Saline] 1,000 ml IV ASDIRECTED
[2020-11-19] MEDS ORDERED: cefTRIAXone 2 GM in Sodium Chloride 0.9% 50 ML IV ONE (19:21)
[2020-11-19] MEDS ORDERED: Sodium Chloride 0.9% 1,000 ML IV SCH (20:30)
--- NOTE | 2020-11-19 20:59 | PCM.HP.2 ---
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 He ate a full breakfast, was feeling fine, but afterwards his teeth started chattering and he has been febrile and somewhat confused all day. Not drinking as much water as he usually does but no nausea or vomiting. He had some diarrhea 2 days ago but that is improved. He was on an antibiotic for his chronic indwelling catheter but they stopped that recently. Onset of Symptoms: Reports: Today Symptom Onset Date: 11/19/20 Symptom Onset Time: 09:00 Duration of Symptoms: Reports: Getting Worse Location: Reports: Generalized Quality: Reports: Same as Previous Episode (concerns of bladder infection per ) Improves with: Reports: None Worsens with: Reports: None Context: Reports: Other (chronic indwelling cath.- last change middle of October) Associated Symptoms: Reports: Fever/Chills, Loss of Appetite, Malaise, Weakness - Related Data Allergies/Adverse Reactions: Allergies Allergy/AdvReac Type Severity Reaction Status Date / Time atenolol Allergy Unknown Cannot Verified 11/19/20 18:32 Remember atorvastatin Allergy Unknown Cannot Verified 11/19/20 18:32 Remember Sulfa (Sulfonamide Allergy Unknown Other Verified 11/19/20 18:32 Antibiotics) Home Medications: Home Meds Aspirin [Halfprin] 81 mg PO DAILY 05/11/18 [History] Losartan [Cozaar] 50 mg PO DAILY 05/11/18 [History] Pravastatin [Pravachol] 40 mg PO DAILY 05/11/18 [History] amLODIPine Besylate [Amlodipine Besylate] 10 mg PO DAILY 05/11/18 [History] polyethylene glycoL 3350 [MiraLAX] 1 pack PO ASDIRECTED PRN 05/11/18 [History] Furosemide 40 mg PO DAILY 02/11/19 [History] Magnesium Oxide 400 mg PO BID #60 tablet 02/13/19 [Rx] Potassium Chloride 20 meq PO BID #60 tablet.er 02/13/19 [Rx] Acetaminophen [Pain Relief] 325 mg PO TID PRN 11/19/20 [History] Acetaminophen/HYDROcodone [HYDROcodone-Acetaminophen 5-325 MG *] 1 tab PO BID PRN 11/19/20 [History] Ketoconazole [Ketoconazole 2%] 1 applic TOP BID 11/19/20 [History] Loperamide [Imodium AD] 2 mg PO ASDIRECTED PRN 11/19/20 [History] Timolol [Betimol] 1 drop OP BEDTIME 11/19/20 [History] Past Medical History HEENT History: Reports: Glaucoma, Impaired Vision Cardiovascular History: Reports: High Cholesterol, Hypertension Gastrointestinal History: Reports: None Genitourinary History: Reports: Prostate Disorder Other Genitourinary History: 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, Musculoskeletal History: Reports: Arthritis Neurological History: Reports: CVA, TIA, Other (See Below) Other Neuro History: 2017- stroke Psychiatric History: Reports: Dementia Endocrine/Metabolic History: Reports: Obesity/BMI 30+ - Infectious Disease History Infectious Disease History: Reports: Chicken Pox - Past Surgical History Head Surgeries/Procedures: Reports: None HEENT Surgical History: Reports: None Cardiovascular Surgical History: Reports: None GI Surgical History: Reports: Cholecystectomy Endocrine Surgical History: Reports: None Neurological Surgical History: Reports: None Musculoskeletal Surgical History: Reports: Hip Replacement Dermatological Surgical History: Reports: None Social & Family History - Family History Family Medical History: No Pertinent Family History - Tobacco Use Tobacco Use Status *Q: Unknown Ever Used Tobacco - Caffeine Use Caffeine Use: Reports: Coffee - Living Situation & Occupation Living situation: Reports: Occupation: Disabled (lives with of 53 years who is 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) Musculoskeletal: Reports: No Symptoms Skin: Reports: Erythema (bilateral lower legs) Psychiatric: Reports: No Symptoms Neurological: Reports: Pre-Existing Deficit (right sided paralysis and speech impaired), Trouble Speaking (able to say yes or no- but that is difficult to understand), Weakness (right sided body) Hematologic/Lymphatic: Reports: No Symptoms Immunologic: Reports: No Symptoms Exam - Exam Exam: See Below - Vital Signs Vital Signs: Last Vital Signs Temp 100.5 F 11/19/20 20:30 Pulse 82 11/19/20 20:30 Resp 18 11/19/20 20:30 BP 130/64 11/19/20 20:30 Pulse Ox 94 L 11/19/20 20:30 Weight: 260 lb - Exam Quality Assessment: Urinary Catheter, DVT Prophylaxis General: Alert, Cooperative, Mild Distress HEENT: PERRLA, Conjunctiva Clear, Hearing Intact, Mucosa Moist & Mccrory, Nares Patent, Pupils Equal, Pupils Reactive, Glasses, Other (hearing aides and full dentures) Neck: Supple, Trachea Midline Lungs: Clear to Auscultation, Normal Respiratory Effort, Decreased Breath Sounds (bilateral) Cardiovascular: Regular Rate, Regular Rhythm, Normal S1, Normal S2 GI/Abdominal Exam: Normal Bowel Sounds, Soft, Non-Tender, No Distention (Male) Exam: No Hernia, Normal Inspection, Other (groin rash with cream to scrotum and penis. not circumcised). No: Circumcised Rectal (Males) Exam: Deferred Back Exam: Normal Inspection Extremities: Normal Inspection, Normal Range of Motion, Non-Tender, Pedal Edema (2+ pitting edema), Limited Range of Motion (right sided and generalized due to illness), Increased Warmth (left lower leg) Skin: Warm, Dry, Intact, Petechia (bilateral lower legs) Neuro Extensive - Mental Status: Alert Neuro Extensive - Motor, Sensory, Reflexes: Motor/Sensory Deficits Psychiatric: Alert, Normal Affect (per Lola) - Patient Data Lab Results Last 24 hrs: Laboratory Results - last 24 hr 11/19/20 11/19/20 11/19/20 Range/Units 18:27 19:00 19:15 WBC 20.3 H (4.5-11.0) K/uL RBC 6.46 H (4.30-5.90) M/uL Hgb 19.0 H* (12.0-15.0) g/dL Hct 55.1 H (40.0-54.0) % MCV 85 (80-98) fL MCH 29 (27-31) pg MCHC 35 (32-36) % Plt Count 170 (150-400) K/uL Add Manual Diff Yes Neutrophils % (Manual) 83 H (36-66) % Band Neutrophils % 4 L (5-11) % Lymphocytes % (Manual) 3 L (24-44) % Monocytes % (Manual) 10 H (2-6) % Sodium (140-148) mmol/L Potassium (3.6-5.2) mmol/L Chloride (100-108) mmol/L Carbon Dioxide (21-32) mmol/L Anion Gap (5.0-14.0) mmol/L BUN (7-18) mg/dL Creatinine (0.8-1.3) mg/dL Est Cr Clr Drug Dosing mL/min Estimated GFR (MDRD) (>60) Glucose (74-106) mg/dL Lactic Acid (0.4-2.0) mmol/L Calcium (8.5-10.1) mg/dL Total Bilirubin (0.2-1.0) mg/dL AST (15-37) U/L ALT (12-78) U/L Alkaline Phosphatase (46-116) U/L Total Protein (6.4-8.2) g/dL Albumin (3.4-5.0) g/dL Globulin (2.3-3.5) g/dL Albumin/Globulin Ratio (1.2-2.2) Urine Color Yellow (YELLOW) Urine Appearance Turbid A (CLEAR) Urine pH 6.0 (5.0-8.0) Ur Specific [place] 1.015 (1.008-1.030) Urine Protein 100 H (NEGATIVE) mg/dL Urine Glucose (UA) Negative (NEGATIVE) mg/dL Urine Ketones Negative (NEGATIVE) mg/dL Urine Occult Blood Moderate H (NEGATIVE) Urine Nitrite Positive H (NEGATIVE) Urine Bilirubin Negative (NEGATIVE) Urine Urobilinogen 1.0 (0.2-1.0) EU/dL Ur Leukocyte Esterase Large H (NEGATIVE) Urine RBC Not seen (0-5) Urine WBC 20-30 H (0-5) Ur Epithelial Cells Rare Amorphous Sediment Not seen Urine Bacteria Many Urine Mucus Not seen Urine Other SARS CoV-2 RNA Rapid CHRIS Negative 11/19/20 11/19/20 Range/Units 19:15 19:18 WBC (4.5-11.0) K/uL RBC (4.30-5.90) M/uL Hgb (12.0-15.0) g/dL Hct (40.0-54.0) % MCV (80-98) fL MCH (27-31) pg MCHC (32-36) % Plt Count (150-400) K/uL Add Manual Diff Neutrophils % (Manual) (36-66) % Band Neutrophils % (5-11) % Lymphocytes % (Manual) (24-44) % Monocytes % (Manual) (2-6) % Sodium 135 L (140-148) mmol/L Potassium 4.1 (3.6-5.2) mmol/L Chloride 98 L (100-108) mmol/L Carbon Dioxide 29 (21-32) mmol/L Anion Gap 12.1 (5.0-14.0) mmol/L BUN 19 H (7-18) mg/dL Creatinine 1.5 H (0.8-1.3) mg/dL Est Cr Clr Drug Dosing 39.28 mL/min Estimated GFR (MDRD) 45 L (>60) Glucose 112 H (74-106) mg/dL Lactic Acid 1.5 (0.4-2.0) mmol/L Calcium 9.0 (8.5-10.1) mg/dL Total Bilirubin 1.2 H (0.2-1.0) mg/dL AST 18 (15-37) U/L ALT 23 (12-78) U/L Alkaline Phosphatase 79 (46-116) U/L Total Protein 7.4 (6.4-8.2) g/dL Albumin 3.2 L (3.4-5.0) g/dL Globulin 4.2 H (2.3-3.5) g/dL Albumin/Globulin Ratio 0.8 L (1.2-2.2) Urine Color (YELLOW) Urine Appearance (CLEAR) Urine pH (5.0-8.0) Ur Specific [place] (1.008-1.030) Urine Protein (NEGATIVE) mg/dL Urine Glucose (UA) (NEGATIVE) mg/dL Urine Ketones (NEGATIVE) mg/dL Urine Occult Blood (NEGATIVE) Urine Nitrite (NEGATIVE) Urine Bilirubin (NEGATIVE) Urine Urobilinogen (0.2-1.0) EU/dL Ur Leukocyte Esterase (NEGATIVE) Urine RBC (0-5) Urine WBC (0-5) Ur Epithelial Cells Amorphous Sediment Urine Bacteria Urine Mucus Urine Other SARS CoV-2 RNA Rapid CHRIS Result Diagrams: 11/19/20 19:15 11/19/20 19:15 Sepsis Event Note - Evaluation Sepsis Screening Result: Possible Sepsis Risk - Focused Exam Vital Signs: Vital Signs Temp Pulse Resp BP Pulse Ox 11/19/20 20:30 100.5 F 82 18 130/64 94 L 11/19/20 18:13 98.9 F 101 H 22 H 115/64 90 L - Problem List (1) UTI (urinary tract infection) SNOMED Code(s): 05380213 ICD Code: N39.0 - URINARY TRACT INFECTION, SITE NOT SPECIFIED Status: Acute Priority: High Current Visit: Yes Qualifiers: Urinary tract infection type: catheter-associated UTI Encounter type: initial encounter (2) CVA, old, aphasia SNOMED Code(s): 517860861 ICD Code: I69.320 - APHASIA FOLLOWING CEREBRAL INFARCTION Status: Acute Priority: High Current Visit: Yes (3) Dementia SNOMED Code(s): 27441450 ICD Code: F03.90 - UNSPECIFIED DEMENTIA WITHOUT BEHAVIORAL DISTURBANCE Status: Chronic Priority: High Current Visit: Yes Qualifiers: Dementia type: unspecified type Dementia behavioral disturbance: without behavioral disturbance Qualified Code(s): F03.90 - Unspecified dementia without behavioral disturbance (4) Essential hypertension SNOMED Code(s): 52182249 ICD Code: I10 - ESSENTIAL (PRIMARY) HYPERTENSION Status: Chronic Maria Del Rosario ority: High Current Visit: Yes Problem List Initiated/Reviewed/Updated: Yes Orders Last 24hrs: Active Orders 24 hr Category Date Time Status Patient Status Manage Transfer [TRANSFER] Routine ADT 11/19/20 20:40 Active Hernandez Catheter Insertion [Insert Urinary Catheter] [OM. Care 11/19/20 20:45 O rdered PC] Q24H Urinary Catheter Assessment [RC] ASDIRECTED Care 11/19/20 20:39 Active Chest 1V Frontal [CR] Stat Exams 11/19/20 18:31 Taken CULTURE BLOOD [BC] Urgent Lab 11/19/20 18:49 Received CULTURE BLOOD [BC] Urgent Lab 11/19/20 19:18 Received Sodium Chloride 0.9% [Normal Saline] 1,000 ml Med 11/19/20 20:30 Active IV ASDIRECTED Blood Culture x2 Reflex Set [OM.PC] Urgent Oth 11/19/20 18:29 Ordered Resuscitation Status Routine Resus Stat 11/19/20 20:42 Ordered Medication Orders Sodium Chloride (Normal Saline) 1,000 mls @ 500 mls/hr IV ASDIRECTED JOHN Last Admin: 11/19/20 20:26 Dose: 500 mls/hr Documented by: CHLOE Assessment/Plan Comment:: Assessment/Plan Comment:: ASSESSMENT AND PLAN - UTI,CVA OLD APHASIA,DEMENTIA, HYPERTENSION, HX OF ATRIAL FIB. Mr. Monroy has been doing well at home til this morning when at 0900- he started having chills and shakes, progressively got weaker, was unable to get out of bed and ambulance was called. is his Caretake and has been caring for him since his stroke in 2017. Yesterday he was able to walk from bed to bathroom. He does not speak, but does say yes or no. ER labs : CBC WBC 20.3, HGB 19.5, HCT 95, PLT 170, BAND 4, Na+ 135, K+ 4.1, BUN 19, Cr. 1.5, GFR 29, glucose 112, lactic acid 1.5, covid negative Urinary Tract Infection- given IV Rocephin 2 gram in ER, will continue Rocephin 1 gram IV every 24 hour -IV fluids Normal Saline at 100 ml/hr overnight for rehydration -chronic indwelling Hernandez catheter changes -treat fever and pain with Tylenol -am labs CBC, BMP 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 - Nutrition Regular - chronic Hernandez catheter -monitor I & O -consult to PT/OT -consult to Spiritual - [employer] communion CODE STATUS -DNR/DNI, Admission justification -this patient will be admitted for inpatient services and is medically appropriate meeting medical necessity for inpatient admission as outlined in my documentation. I reasonably expect the patient will require inpatient services that span a period time over 2 midnights. I reasonably expect this patient to be discharged or transferred within 96 hours after admission to the [facility]. Disposition -I would anticipate discharge to Home with Lola. Primary care physician -Dr. Lucila Walton, [place] Hospitalist- Kush Mancini M.D. - Mortality Measure Prognosis:: Good - Mortality Measure Prognosis:: Good
[2020-11-19] MEDS ORDERED: Docusate Sodium 100 MG Cap PO PRN (21:25)
[2020-11-19] MEDS ORDERED: Morphine 2 MG/ML SYRINGE IVPUSH PRN (21:25)
[2020-11-19] MEDS ORDERED: Ondansetron 4 MG Tab.DIS PO PRN (21:25)
[2020-11-19] MEDS ORDERED: Acetaminophen/HYDROcodone 325-5 MG Tab PO PRN (21:25)
[2020-11-19] MEDS ORDERED: Bisacodyl 5 MG Tab PO PRN (21:25)
[2020-11-19] MEDS ORDERED: Pantoprazole 40 MG Vial IV SCH (21:25)
[2020-11-19] MEDS ORDERED: Polyethylene Glycol 3350 Powder 17 GM Packet PO PRN (21:25)
[2020-11-19] MEDS ORDERED: Loperamide 2 MG Cap PO PRN (21:25)
[2020-11-19] MEDS ORDERED: Acetaminophen 325 MG Tab PO PRN (21:25)
[2020-11-19] MEDS: Potassium Chloride 20 MEQ Tab.ER PO SCH (22:23)
[2020-11-19] MEDS: Ketoconazole 2% Crm 30 GM Tube TOP SCH (22:24)
[2020-11-19] MEDS: Magnesium Oxide 400 MG Tab PO SCH (22:25)
[2020-11-19] MEDS: Sodium Chloride 0.9% 1,000 ML IV SCH (22:33)
[2020-11-20] MEDS: Sodium Chloride 0.9% 1,000 ML IV SCH (08:38)
[2020-11-20] MEDS: Furosemide 40 MG Tab PO SCH (08:39)
[2020-11-20] MEDS: Potassium Chloride 20 MEQ Tab.ER PO SCH ×2 (08:39→20:57)
[2020-11-20] MEDS: Losartan 50 MG Tab PO SCH (08:39)
[2020-11-20] MEDS: amLODIPine 5 MG Tab PO SCH (08:40)
[2020-11-20] MEDS: Magnesium Oxide 400 MG Tab PO SCH ×2 (08:40→20:57)
[2020-11-20] MEDS: Ketoconazole 2% Crm 30 GM Tube TOP SCH ×2 (08:41→20:57)
[2020-11-20] MEDS: Enoxaparin 40 MG/0.4 ML Syringe SUBCUT SCH (08:41)
[2020-11-20] MEDS: Pravastatin 20 MG Tab PO SCH (08:42)
--- NOTE | 2020-11-20 09:06 | CR ---
CHEST: Portable 9-21 at 7:48 PM CLINICAL HISTORY:Fever, mental status changes COMPARISON:2019 FINDINGS: Heart is enlarged. Pulmonary vascularity is mildly cephalized. This is exaggerated by poor inspiratory level. No infiltrates are seen IMPRESSION: LESS than optimal study due to poor inspiratory level Moderate cardiomegaly Vascular cephalization may represent some pulmonary venous hypertension. This could be exaggerated by poor inspiratory level.
[2020-11-20] MEDS ORDERED: cefTRIAXone 1 GM in Sodium Chloride 0.9% 50 ML IV SCH (09:10)
--- NOTE | 2020-11-20 10:36 | PCM.PN ---
- General Info Date of Service: 11/20/20 Subjective Update: Mr. Monroy is an 80-year-old gentleman who was admitted through the emergency department last night with progressive weakness secondary to underlying urinary tract infection. Cultures have been obtained and he received IV fluids through the night as well as IV antibiotic therapy with ceftriaxone. He is unable to provide meaningful information concerning recent symptoms or review of systems because of severe expressive aphasia. - Patient Data Vitals - Most Recent: Last Vital Signs Temp 98.4 F 11/20/20 10:06 Pulse 68 11/20/20 10:06 Resp 18 11/20/20 10:06 BP 131/62 11/20/20 10:06 Pulse Ox 92 L 11/20/20 10:06 Weight - Most Recent: 277 lb 12.801 oz I&O - Last 24 Hours: Intake & Output 11/19/20 11/20/20 11/20/20 22:59 06:59 14:59 Intake Total 1568 Output Total 1050 Balance 518 Lab Results Last 24 Hours: Laboratory Results - last 24 hr 11/19/20 11/19/20 11/19/20 Range/Units 18:27 19:00 19:15 WBC 20.3 H (4.5-11.0) K/uL RBC 6.46 H (4.30-5.90) M/uL Hgb 19.0 H* (12.0-15.0) g/dL Hct 55.1 H (40.0-54.0) % MCV 85 (80-98) fL MCH 29 (27-31) pg MCHC 35 (32-36) % Plt Count 170 (150-400) K/uL Neut % (Auto) (36-66) % Lymph % (Auto) (24-44) % [place] % (Auto) (2-6) % Eos % (Auto) (2-4) % Baso % (Auto) (0-1) % Add Manual Diff Yes Neutrophils % (Manual) 83 H (36-66) % Band Neutrophils % 4 L (5-11) % Lymphocytes % (Manual) 3 L (24-44) % Monocytes % (Manual) 10 H (2-6) % Sodium (140-148) mmol/L Potassium (3.6-5.2) mmol/L Chloride (100-108) mmol/L Carbon Dioxide (21-32) mmol/L Anion Gap (5.0-14.0) mmol/L BUN (7-18) mg/dL Creatinine (0.8-1.3) mg/dL Est Cr Clr Drug Dosing mL/min Estimated GFR (MDRD) (>60) Glucose (74-106) mg/dL Lactic Acid (0.4-2.0) mmol/L Calcium (8.5-10.1) mg/dL Total Bilirubin (0.2-1.0) mg/dL AST (15-37) U/L ALT (12-78) U/L Alkaline Phosphatase (46-116) U/L Total Protein (6.4-8.2) g/dL Albumin (3.4-5.0) g/dL Globulin (2.3-3.5) g/dL Albumin/Globulin Ratio (1.2-2.2) Urine Color Yellow (YELLOW) Urine Appearance Turbid A (CLEAR) Urine pH 6.0 (5.0-8.0) Ur Specific Skippers 1.015 (1.008-1.030) Urine Protein 100 H (NEGATIVE) mg/dL Urine Glucose (UA) Negative (NEGATIVE) mg/dL Urine Ketones Negative (NEGATIVE) mg/dL Urine Occult Blood Moderate H (NEGATIVE) Urine Nitrite Positive H (NEGATIVE) Urine Bilirubin Negative (NEGATIVE) Urine Urobilinogen 1.0 (0.2-1.0) EU/dL Ur Leukocyte Esterase Large H (NEGATIVE) Urine RBC Not seen (0-5) Urine WBC 20-30 H (0-5) Ur Epithelial Cells Rare Amorphous Sediment Not seen Urine Bacteria Many Urine Mucus Not seen Urine Other SARS CoV-2 RNA Rapid CHRIS Negative 11/19/20 11/19/20 11/20/20 Range/Units 19:15 19:18 06:08 WBC 14.2 H (4.5-11.0) K/uL RBC 6.36 H (4.30-5.90) M/uL Hgb 18.8 H* (12.0-15.0) g/dL Hct 54.1 H (40.0-54.0) % MCV 85 (80-98) fL MCH 30 (27-31) pg MCHC 35 (32-36) % Plt Count 145 L (150-400) K/uL Neut % (Auto) 84.9 H (36-66) % Lymph % (Auto) 7.8 L (24-44) % [place] % (Auto) 6.8 H (2-6) % Eos % (Auto) 0.3 L (2-4) % Baso % (Auto) 0.2 (0-1) % Add Manual Diff Neutrophils % (Manual) (36-66) % Band Neutrophils % (5-11) % Lymphocytes % (Manual) (24-44) % Monocytes % (Manual) (2-6) % Sodium 135 L (140-148) mmol/L Potassium 4.1 (3.6-5.2) mmol/L Chloride 98 L (100-108) mmol/L Carbon Dioxide 29 (21-32) mmol/L Anion Gap 12.1 (5.0-14.0) mmol/L BUN 19 H (7-18) mg/dL Creatinine 1.5 H (0.8-1.3) mg/dL Est Cr Clr Drug Dosing 39.28 mL/min Estimated GFR (MDRD) 45 L (>60) Glucose 112 H (74-106) mg/dL Lactic Acid 1.5 (0.4-2.0) mmol/L Calcium 9.0 (8.5-10.1) mg/dL Total Bilirubin 1.2 H (0.2-1.0) mg/dL AST 18 (15-37) U/L ALT 23 (12-78) U/L Alkaline Phosphatase 79 (46-116) U/L Total Protein 7.4 (6.4-8.2) g/dL Albumin 3.2 L (3.4-5.0) g/dL Globulin 4.2 H (2.3-3.5) g/dL Albumin/Globulin Ratio 0.8 L (1.2-2.2) Urine Color (YELLOW) Urine Appearance (CLEAR) Urine pH (5.0-8.0) Ur Specific Skippers (1.008-1.030) Urine Protein (NEGATIVE) mg/dL Urine Glucose (UA) (NEGATIVE) mg/dL Urine Ketones (NEGATIVE) mg/dL Urine Occult Blood (NEGATIVE) Urine Nitrite (NEGATIVE) Urine Bilirubin (NEGATIVE) Urine Urobilinogen (0.2-1.0) EU/dL Ur Leukocyte Esterase (NEGATIVE) Urine RBC (0-5) Urine WBC (0-5) Ur Epithelial Cells Amorphous Sediment Urine Bacteria Urine Mucus Urine Other SARS CoV-2 RNA Rapid CHRIS 11/20/20 Range/Units 06:08 WBC (4.5-11.0) K/uL RBC (4.30-5.90) M/uL Hgb (12.0-15.0) g/dL Hct (40.0-54.0) % MCV (80-98) fL MCH (27-31) pg MCHC (32-36) % Plt Count (150-400) K/uL Neut % (Auto) (36-66) % Lymph % (Auto) (24-44) % [place] % (Auto) (2-6) % Eos % (Auto) (2-4) % Baso % (Auto) (0-1) % Add Manual Diff Neutrophils % (Manual) (36-66) % Band Neutrophils % (5-11) % Lymphocytes % (Manual) (24-44) % Monocytes % (Manual) (2-6) % Sodium 139 L (140-148) mmol/L Potassium 4.4 (3.6-5.2) mmol/L Chloride 104 (100-108) mmol/L Carbon Dioxide 24 (21-32) mmol/L Anion Gap 15.4 H (5.0-14.0) mmol/L BUN 15 (7-18) mg/dL Creatinine 1.0 (0.8-1.3) mg/dL Est Cr Clr Drug Dosing 58.72 mL/min Estimated GFR (MDRD) > 60 (>60) Glucose 103 (74-106) mg/dL Lactic Acid (0.4-2.0) mmol/L Calcium 8.6 (8.5-10.1) mg/dL Total Bilirubin (0.2-1.0) mg/dL AST (15-37) U/L ALT (12-78) U/L Alkaline Phosphatase (46-116) U/L Total Protein (6.4-8.2) g/dL Albumin (3.4-5.0) g/dL Globulin (2.3-3.5) g/dL Albumin/Globulin Ratio (1.2-2.2) Urine Color (YELLOW) Urine Appearance (CLEAR) Urine pH (5.0-8.0) Ur Specific Skippers (1.008-1.030) Urine Protein (NEGATIVE) mg/dL Urine Glucose (UA) (NEGATIVE) mg/dL Urine Ketones (NEGATIVE) mg/dL Urine Occult Blood (NEGATIVE) Urine Nitrite (NEGATIVE) Urine Bilirubin (NEGATIVE) Urine Urobilinogen (0.2-1.0) EU/dL Ur Leukocyte Esterase (NEGATIVE) Urine RBC (0-5) Urine WBC (0-5) Ur Epithelial Cells Amorphous Sediment Urine Bacteria Urine Mucus Urine Other SARS CoV-2 RNA Rapid CHRIS Med Orders - Current: Current Medications Acetaminophen (Acetaminophen 325 Mg Tab) 650 mg PO Q4H PRN PRN Reason: Pain (Mild 1-3)/fever Last Admin: 11/19/20 22:24 Dose: 650 mg Documented by: Hydrocodone Bitart/Acetaminophen (Acetaminophen/Hydrocodone 325-5 Mg Tab) 1 tab PO Q4H PRN PRN Reason: Pain (moderate 4-6) Amlodipine Besylate (Amlodipine 5 Mg Tab) 10 mg PO DAILY [facility] Last Admin: 11/20/20 08:40 Dose: 10 mg Documented by: Bisacodyl (Bisacodyl 5 Mg Tab) 5 mg PO DAILY PRN PRN Reason: Constipation Last Admin: 11/19/20 22:23 Dose: 5 mg Documented by: Docusate Sodium (Docusate Sodium 100 Mg Cap) 100 mg PO BID PRN PRN Reason: Constipation Last Admin: 11/19/20 22:21 Dose: 100 mg Documented by: Enoxaparin Sodium (Enoxaparin 40 Mg/0.4 Ml Syringe) 40 mg SUBCUT DAILY [facility] Last Admin: 11/20/20 08:41 Dose: 40 mg Documented by: Furosemide (Furosemide 40 Mg Tab) 40 mg PO DAILY [facility] Last Admin: 11/20/20 08:39 Dose: 40 mg Documented by: Sodium Chloride (Normal Saline) 1,000 mls @ 100 mls/hr IV ASDIRECTED [facility] Last Admin: 11/20/20 08:38 Dose: 100 mls/hr Documented by: Ceftriaxone Sodium 1 gm/ (Sodium Chloride) 50 mls @ 100 mls/hr IV Q24H [facility] Ketoconazole (Ketoconazole 2% Crm 30 Gm Tube) 0 gm TOP BID [facility] Last Admin: 11/20/20 08:41 Dose: 1 applic Documented by: Loperamide HCl (Loperamide 2 Mg Cap) 2 mg PO ASDIRECTED PRN PRN Reason: Diarrhea Losartan Potassium (Losartan 50 Mg Tab) 50 mg PO DAILY [facility] Last Admin: 11/20/20 08:39 Dose: 50 mg Documented by: Magnesium Oxide (Magnesium Oxide 400 Mg Tab) 400 mg PO BID [facility] Last Admin: 11/20/20 08:40 Dose: 400 mg Documented by: Morphine Sulfate (Morphine 2 Mg/Ml Syringe) 2 mg IVPUSH Q2H PRN PRN Reason: Pain (severe 7-10) Non-Formulary Medication (Timolol [Betimol 0.5% Ophth Soln]) 1 drop OP BEDTIME [facility] Ondansetron HCl (Ondansetron 4 Mg Tab.Dis) 4 mg PO Q6H PRN PRN Reason: Nausea able to take PO Pantoprazole Sodium (Pantoprazole 40 Mg Tab.Cr) 40 mg PO BEDTIME [facility] Polyethylene Glycol (Polyethylene Glycol 3350 Powder 17 Gm Packet) 17 gm PO ASDIRECTED PRN PRN Reason: Constipation Potassium Chloride (Potassium Chloride 20 Meq Tab.Er) 20 meq PO BID [facility] Last Admin: 11/20/20 08:39 Dose: 20 meq Documented by: Pravastatin Sodium (Pravastatin 20 Mg Tab) 40 mg PO DAILY [facility] Last Admin: 11/20/20 08:42 Dose: 40 mg Documented by: Discontinued Medications Ceftriaxone Sodium 2 gm/ (Sodium Chloride) 50 mls @ 100 mls/hr IV ONETIME ONE Stop: 11/19/20 19:50 Last Admin: 11/19/20 19:40 Dose: 100 mls/hr Documented by: Sodium Chloride (Normal Saline) 1,000 mls @ 500 mls/hr IV ASDIRECTED [facility] Last Admin: 11/19/20 20:26 Dose: 500 mls/hr Documented by: Ceftriaxone Sodium 1 gm/ (Sodium Chloride) 50 mls @ 100 mls/hr IV Q24H [facility] Pantoprazole Sodium (Pantoprazole 40 Mg Vial) 40 mg IV BEDTIME [facility] Last Admin: 11/19/20 22:24 Dose: 40 mg Documented by: - Exam Quality Assessment: DVT Prophylaxis Urinary Catheter Total Time: 0Days 1Hours General: Alert, Cooperative, No Acute Distress Lungs: Clear to Auscultation, Normal Respiratory Effort Cardiovascular: Regular Rate, Regular Rhythm, No Murmurs GI/Abdominal Exam: Soft, Non-Tender, No Organomegaly, No Distention Extremities: Non-Tender, No Pedal Edema - Patient Data Lab Results Last 24 hrs: Laboratory Results - last 24 hr 11/19/20 11/19/20 11/19/20 Range/Units 18:27 19:00 19:15 WBC 20.3 H (4.5-11.0) K/uL RBC 6.46 H (4.30-5.90) M/uL Hgb 19.0 H* (12.0-15.0) g/dL Hct 55.1 H (40.0-54.0) % MCV 85 (80-98) fL MCH 29 (27-31) pg MCHC 35 (32-36) % Plt Count 170 (150-400) K/uL Neut % (Auto) (36-66) % Lymph % (Auto) (24-44) % [place] % (Auto) (2-6) % Eos % (Auto) (2-4) % Baso % (Auto) (0-1) % Add Manual Diff Yes Neutrophils % (Manual) 83 H (36-66) % Band Neutrophils % 4 L (5-11) % Lymphocytes % (Manual) 3 L (24-44) % Monocytes % (Manual) 10 H (2-6) % Sodium (140-148) mmol/L Potassium (3.6-5.2) mmol/L Chloride (100-108) mmol/L Carbon Dioxide (21-32) mmol/L Anion Gap (5.0-14.0) mmol/L BUN (7-18) mg/dL Creatinine (0.8-1.3) mg/dL Est Cr Clr Drug Dosing mL/min Estimated GFR (MDRD) (>60) Glucose (74-106) mg/dL Lactic Acid (0.4-2.0) mmol/L Calcium (8.5-10.1) mg/dL Total Bilirubin (0.2-1.0) mg/dL AST (15-37) U/L ALT (12-78) U/L Alkaline Phosphatase (46-116) U/L Total Protein (6.4-8.2) g/dL Albumin (3.4-5.0) g/dL Globulin (2.3-3.5) g/dL Albumin/Globulin Ratio (1.2-2.2) Urine Color Yellow (YELLOW) Urine Appearance Turbid A (CLEAR) Urine pH 6.0 (5.0-8.0) Ur Specific Skippers 1.015 (1.008-1.030) Urine Protein 100 H (NEGATIVE) mg/dL Urine Glucose (UA) Negative (NEGATIVE) mg/dL Urine Ketones Negative (NEGATIVE) mg/dL Urine Occult Blood Moderate H (NEGATIVE) Urine Nitrite Positive H (NEGATIVE) Urine Bilirubin Negative (NEGATIVE) Urine Urobilinogen 1.0 (0.2-1.0) EU/dL Ur Leukocyte Esterase Large H (NEGATIVE) Urine RBC Not seen (0-5) Urine WBC 20-30 H (0-5) Ur Epithelial Cells Rare Amorphous Sediment Not seen Urine Bacteria Many Urine Mucus Not seen Urine Other SARS CoV-2 RNA Rapid CHRIS Negative 11/19/20 11/19/20 11/20/20 Range/Units 19:15 19:18 06:08 WBC 14.2 H (4.5-11.0) K/uL RBC 6.36 H (4.30-5.90) M/uL Hgb 18.8 H* (12.0-15.0) g/dL Hct 54.1 H (40.0-54.0) % MCV 85 (80-98) fL MCH 30 (27-31) pg MCHC 35 (32-36) % Plt Count 145 L (150-400) K/uL Neut % (Auto) 84.9 H (36-66) % Lymph % (Auto) 7.8 L (24-44) % [place] % (Auto) 6.8 H (2-6) % Eos % (Auto) 0.3 L (2-4) % Baso % (Auto) 0.2 (0-1) % Add Manual Diff Neutrophils % (Manual) (36-66) % Band Neutrophils % (5-11) % Lymphocytes % (Manual) (24-44) % Monocytes % (Manual) (2-6) % Sodium 135 L (140-148) mmol/L Potassium 4.1 (3.6-5.2) mmol/L Chloride 98 L (100-108) mmol/L Carbon Dioxide 29 (21-32) mmol/L Anion Gap 12.1 (5.0-14.0) mmol/L BUN 19 H (7-18) mg/dL Creatinine 1.5 H (0.8-1.3) mg/dL Est Cr Clr Drug Dosing 39.28 mL/min Estimated GFR (MDRD) 45 L (>60) Glucose 112 H (74-106) mg/dL Lactic Acid 1.5 (0.4-2.0) mmol/L Calcium 9.0 (8.5-10.1) mg/dL Total Bilirubin 1.2 H (0.2-1.0) mg/dL AST 18 (15-37) U/L ALT 23 (12-78) U/L Alkaline Phosphatase 79 (46-116) U/L Total Protein 7.4 (6.4-8.2) g/dL Albumin 3.2 L (3.4-5.0) g/dL Globulin 4.2 H (2.3-3.5) g/dL Albumin/Globulin Ratio 0.8 L (1.2-2.2) Urine Color (YELLOW) Urine Appearance (CLEAR) Urine pH (5.0-8.0) Ur Specific Skippers (1.008-1.030) Urine Protein (NEGATIVE) mg/dL Urine Glucose (UA) (NEGATIVE) mg/dL Urine Ketones (NEGATIVE) mg/dL Urine Occult Blood (NEGATIVE) Urine Nitrite (NEGATIVE) Urine Bilirubin (NEGATIVE) Urine Urobilinogen (0.2-1.0) EU/dL Ur Leukocyte Esterase (NEGATIVE) Urine RBC (0-5) Urine WBC (0-5) Ur Epithelial Cells Amorphous Sediment Urine Bacteria Urine Mucus Urine Other SARS CoV-2 RNA Rapid CHRIS 11/20/20 Range/Units 06:08 WBC (4.5-11.0) K/uL RBC (4.30-5.90) M/uL Hgb (12.0-15.0) g/dL Hct (40.0-54.0) % MCV (80-98) fL MCH (27-31) pg MCHC (32-36) % Plt Count (150-400) K/uL Neut % (Auto) (36-66) % Lymph % (Auto) (24-44) % [place] % (Auto) (2-6) % Eos % (Auto) (2-4) % Baso % (Auto) (0-1) % Add Manual Diff Neutrophils % (Manual) (36-66) % Band Neutrophils % (5-11) % Lymphocytes % (Manual) (24-44) % Monocytes % (Manual) (2-6) % Sodium 139 L (140-148) mmol/L Potassium 4.4 (3.6-5.2) mmol/L Chloride 104 (100-108) mmol/L Carbon Dioxide 24 (21-32) mmol/L Anion Gap 15.4 H (5.0-14.0) mmol/L BUN 15 (7-18) mg/dL Creatinine 1.0 (0.8-1.3) mg/dL Est Cr Clr Drug Dosing 58.72 mL/min Estimated GFR (MDRD) > 60 (>60) Glucose 103 (74-106) mg/dL Lactic Acid (0.4-2.0) mmol/L Calcium 8.6 (8.5-10.1) mg/dL Total Bilirubin (0.2-1.0) mg/dL AST (15-37) U/L ALT (12-78) U/L Alkaline Phosphatase (46-116) U/L Total Protein (6.4-8.2) g/dL Albumin (3.4-5.0) g/dL Globulin (2.3-3.5) g/dL Albumin/Globulin Ratio (1.2-2.2) Urine Color (YELLOW) Urine Appearance (CLEAR) Urine pH (5.0-8.0) Ur Specific Skippers (1.008-1.030) Urine Protein (NEGATIVE) mg/dL Urine Glucose (UA) (NEGATIVE) mg/dL Urine Ketones (NEGATIVE) mg/dL Urine Occult Blood (NEGATIVE) Urine Nitrite (NEGATIVE) Urine Bilirubin (NEGATIVE) Urine Urobilinogen (0.2-1.0) EU/dL Ur Leukocyte Esterase (NEGATIVE) Urine RBC (0-5) Urine WBC (0-5) Ur Epithelial Cells Amorphous Sediment Urine Bacteria Urine Mucus Urine Other SARS CoV-2 RNA Rapid CHRIS Result Diagrams: 11/20/20 06:08 11/20/20 06:08 Sepsis Event Note - Evaluation Sepsis Screening Result: Possible Sepsis Risk - Focused Exam Vital Signs: Vital Signs Temp Temp Pulse Resp BP BP Pulse Ox 11/20/20 10:06 98.4 F 68 18 131/62 92 L 11/20/20 08:40 143/58 H 11/20/20 08:39 143/58 H 11/20/20 07:22 99.0 F 74 18 143/58 H 93 L 11/20/20 03:36 98.7 F 68 16 130/68 94 L 11/19/20 22:54 98.9 F - Problem List Review Problem List Initiated/Reviewed/Updated: Yes - My Orders Last 24 Hours: My Active Orders 11/20/20 10:32 Convert IV to Saline Lock [OM.PC] Routine 11/21/20 05:00 BASIC METABOLIC PANEL,BMP [CHEM] Timed CBC WITH AUTO DIFF [HEME] Timed - Plan Plan:: ASSESSMENT AND PLAN Urinary Tract Infection-causing severe weakness and complicating previous CVA with right-sided weakness -Ceftriaxone 1 g IV every 24 hours pending culture results -Blood and urine cultures pending -Saline lock IV -chronic indwelling West catheter changes -treat fever and pain with Tylenol -am labs CBC, BMP 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 - Nutrition Regular - chronic West catheter -monitor I & O -consult to PT/OT -consult to Spiritual - Holiness communion CODE STATUS -DNR/DNI, Admission justification -this patient will be admitted for inpatient services and is medically appropriate meeting medical necessity for inpatient admission as outlined in my documentation. I reasonably expect the patient will require inpatient services that span a period time over 2 midnights. I reasonably expect this patient to be discharged or transferred within 96 hours after admission to the [facility]. Disposition -I would anticipate discharge to Home with Lola. Primary care physician -Dr. Lucila Walton, MS Hospitalist- Kush Mancini M.D.
[2020-11-20] MEDS: cefTRIAXone 1 GM in Sodium Chloride 0.9% 50 ML IV SCH (19:22)
[2020-11-20] MEDS: Pantoprazole 40 MG Tab.CR PO SCH (20:58)
[2020-11-21] MEDS: amLODIPine 5 MG Tab PO SCH (08:44)
[2020-11-21] MEDS: Pravastatin 20 MG Tab PO SCH (08:44)
[2020-11-21] MEDS: Magnesium Oxide 400 MG Tab PO SCH ×2 (08:44→21:24)
[2020-11-21] MEDS: Potassium Chloride 20 MEQ Tab.ER PO SCH ×2 (08:44→21:24)
[2020-11-21] MEDS: Furosemide 40 MG Tab PO SCH (08:44)
[2020-11-21] MEDS: Losartan 50 MG Tab PO SCH (08:48)
[2020-11-21] MEDS: Ketoconazole 2% Crm 30 GM Tube TOP SCH ×2 (08:50→21:24)
[2020-11-21] MEDS: Enoxaparin 40 MG/0.4 ML Syringe SUBCUT SCH (08:50)
[2020-11-21] MEDS ORDERED: Furosemide 40 MG/4 ML VIAL IVPUSH ONE (09:38)
--- NOTE | 2020-11-21 09:51 | PCM.PN ---
- General Info Date of Service: 11/21/20 Subjective Update: Mr. Monroy has been stable since yesterday. Appetite has improved and he is more alert. Remains somewhat weaker than normal as far as transfers and ambulation. He is unable to provide meaningful information concerning review of systems or recent symptoms because of his severe expressive aphasia and underlying dementia. - Patient Data Vitals - Most Recent: Last Vital Signs Temp 98.9 F 11/21/20 06:00 Pulse 89 11/21/20 06:00 Resp 16 11/21/20 06:00 BP 105/74 11/21/20 08:48 Pulse Ox 93 L 11/21/20 06:00 Weight - Most Recent: 277 lb 12.801 oz I&O - Last 24 Hours: Intake & Output 11/20/20 11/21/20 11/21/20 22:59 06:59 14:59 Intake Total 410 Output Total 1750 Balance -1340 Lab Results Last 24 Hours: Laboratory Results - last 24 hr 11/21/20 Range/Units 05:48 Sodium 138 L (140-148) mmol/L Potassium 5.0 (3.6-5.2) mmol/L Chloride 107 (100-108) mmol/L Carbon Dioxide 18 L (21-32) mmol/L Anion Gap 18.0 H (5.0-14.0) mmol/L BUN 15 (7-18) mg/dL Creatinine 0.8 (0.8-1.3) mg/dL Est Cr Clr Drug Dosing 73.40 mL/min Estimated GFR (MDRD) > 60 (>60) Glucose 111 H (74-106) mg/dL Calcium 8.6 (8.5-10.1) mg/dL Ady Results Last 24 Hours: Microbiology 11/19/20 19:18 Aerobic Blood Culture - Preliminary Blood - Arm, Left NO GROWTH AFTER 1 DAY Anaerobic Blood Culture - Preliminary NO GROWTH AFTER 1 DAY 11/19/20 18:49 Aerobic Blood Culture - Preliminary Blood - Arm, Right NO GROWTH AFTER 1 DAY Anaerobic Blood Culture - Preliminary NO GROWTH AFTER 1 DAY Med Orders - Current: Current Medications Acetaminophen (Acetaminophen 325 Mg Tab) 650 mg PO Q4H PRN PRN Reason: Pain (Mild 1-3)/fever Last Admin: 11/19/20 22:24 Dose: 650 mg Documented by: Hydrocodone Bitart/Acetaminophen (Acetaminophen/Hydrocodone 325-5 Mg Tab) 1 tab PO Q4H PRN PRN Reason: Pain (moderate 4-6) Amlodipine Besylate (Amlodipine 5 Mg Tab) 10 mg PO DAILY [facility] Last Admin: 11/21/20 08:44 Dose: 10 mg Documented by: Bisacodyl (Bisacodyl 5 Mg Tab) 5 mg PO DAILY PRN PRN Reason: Constipation Last Admin: 11/19/20 22:23 Dose: 5 mg Documented by: Docusate Sodium (Docusate Sodium 100 Mg Cap) 100 mg PO BID PRN PRN Reason: Constipation Last Admin: 11/19/20 22:21 Dose: 100 mg Documented by: Enoxaparin Sodium (Enoxaparin 40 Mg/0.4 Ml Syringe) 40 mg SUBCUT DAILY [facility] Last Admin: 11/21/20 08:50 Dose: 40 mg Documented by: Furosemide (Furosemide 40 Mg/4 Ml Vial) 20 mg IVPUSH NOW ONE Stop: 11/21/20 18:01 Ceftriaxone Sodium 1 gm/ (Sodium Chloride) 50 mls @ 100 mls/hr IV Q24H [facility] Last Admin: 11/20/20 19:22 Dose: 100 mls/hr Documented by: Ketoconazole (Ketoconazole 2% Crm 30 Gm Tube) 0 gm TOP BID [facility] Last Admin: 11/21/20 08:50 Dose: 1 applic Documented by: Loperamide HCl (Loperamide 2 Mg Cap) 2 mg PO ASDIRECTED PRN PRN Reason: Diarrhea Losartan Potassium (Losartan 50 Mg Tab) 50 mg PO DAILY [facility] Last Admin: 11/21/20 08:48 Dose: 50 mg Documented by: Magnesium Oxide (Magnesium Oxide 400 Mg Tab) 400 mg PO BID [facility] Last Admin: 11/21/20 08:44 Dose: 400 mg Documented by: Morphine Sulfate (Morphine 2 Mg/Ml Syringe) 2 mg IVPUSH Q2H PRN PRN Reason: Pain (severe 7-10) Non-Formulary Medication (Timolol [Betimol 0.5% Ophth Soln]) 1 drop OP BEDTIME [facility] Ondansetron HCl (Ondansetron 4 Mg Tab.Dis) 4 mg PO Q6H PRN PRN Reason: Nausea able to take PO Pantoprazole Sodium (Pantoprazole 40 Mg Tab.Cr) 40 mg PO BEDTIME [facility] Last Admin: 11/20/20 20:58 Dose: 40 mg Documented by: Polyethylene Glycol (Polyethylene Glycol 3350 Powder 17 Gm Packet) 17 gm PO ASDIRECTED PRN PRN Reason: Constipation Potassium Chloride (Potassium Chloride 20 Meq Tab.Er) 20 meq PO BID [facility] Last Admin: 11/21/20 08:44 Dose: 20 meq Documented by: Pravastatin Sodium (Pravastatin 20 Mg Tab) 40 mg PO DAILY [facility] Last Admin: 11/21/20 08:44 Dose: 40 mg Documented by: Discontinued Medications Furosemide (Furosemide 40 Mg Tab) 40 mg PO DAILY [facility] Last Admin: 11/21/20 08:44 Dose: 40 mg Documented by: Furosemide (Furosemide 40 Mg/4 Ml Vial) 20 mg IVPUSH NOW ONE Stop: 11/21/20 09:39 Ceftriaxone Sodium 2 gm/ (Sodium Chloride) 50 mls @ 100 mls/hr IV ONETIME ONE Stop: 11/19/20 19:50 Last Admin: 11/19/20 19:40 Dose: 100 mls/hr Documented by: Sodium Chloride (Normal Saline) 1,000 mls @ 500 mls/hr IV ASDIRECTED [facility] Last Admin: 11/19/20 20:26 Dose: 500 mls/hr Documented by: Ceftriaxone Sodium 1 gm/ (Sodium Chloride) 50 mls @ 100 mls/hr IV Q24H [facility] Sodium Chloride (Normal Saline) 1,000 mls @ 100 mls/hr IV ASDIRECTED [facility] Last Admin: 11/20/20 08:38 Dose: 100 mls/hr Documented by: Pantoprazole Sodium (Pantoprazole 40 Mg Vial) 40 mg IV BEDTIME [facility] Last Admin: 11/19/20 22:24 Dose: 40 mg Documented by: - Exam Quality Assessment: DVT Prophylaxis Urinary Catheter Total Time: 0Days 22Hours General: Alert, Oriented, Cooperative, No Acute Distress Lungs: Clear to Auscultation, Normal Respiratory Effort Cardiovascular: Regular Rate, No Murmurs, Irregular Rhythm GI/Abdominal Exam: Soft, Non-Tender, No Organomegaly, No Distention Extremities: Non-Tender, Pedal Edema - Patient Data Lab Results Last 24 hrs: Laboratory Results - last 24 hr 11/21/20 Range/Units 05:48 Sodium 138 L (140-148) mmol/L Potassium 5.0 (3.6-5.2) mmol/L Chloride 107 (100-108) mmol/L Carbon Dioxide 18 L (21-32) mmol/L Anion Gap 18.0 H (5.0-14.0) mmol/L BUN 15 (7-18) mg/dL Creatinine 0.8 (0.8-1.3) mg/dL Est Cr Clr Drug Dosing 73.40 mL/min Estimated GFR (MDRD) > 60 (>60) Glucose 111 H (74-106) mg/dL Calcium 8.6 (8.5-10.1) mg/dL Result Diagrams: 11/20/20 06:08 11/21/20 05:48 Ady Results Last 24 hrs: Microbiology 11/19/20 19:18 Aerobic Blood Culture - Preliminary Blood - Arm, Left NO GROWTH AFTER 1 DAY Anaerobic Blood Culture - Preliminary NO GROWTH AFTER 1 DAY 11/19/20 18:49 Aerobic Blood Culture - Preliminary Blood - Arm, Right NO GROWTH AFTER 1 DAY Anaerobic Blood Culture - Preliminary NO GROWTH AFTER 1 DAY Sepsis Event Note - Evaluation Sepsis Screening Result: No Definite Risk - Focused Exam Vital Signs: Vital Signs Temp Pulse Resp BP BP Pulse Ox 11/21/20 08:48 105/74 11/21/20 08:44 105/74 11/21/20 06:00 98.9 F 89 16 105/74 93 L 11/21/20 02:17 97.6 F 75 16 152/86 H 96 11/20/20 23:36 97 F 82 16 145/73 H 97 - Problem List Review Problem List Initiated/Reviewed/Updated: Yes - My Orders Last 24 Hours: My Active Orders 11/20/20 10:32 Convert IV to Saline Lock [OM.PC] Routine 11/21/20 18:00 Furosemide [Lasix] 20 mg IVPUSH NOW ONE 11/22/20 05:00 BASIC METABOLIC PANEL,BMP [CHEM] Timed - Plan Plan:: ASSESSMENT AND PLAN Urinary Tract Infection-causing severe weakness and complicating previous CVA with right-sided weakness. 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 - Nutrition Regular - chronic West catheter -monitor I & O -consult to PT/OT -consult to [facility] CODE STATUS -DNR/DNI, Admission justification -this patient will be admitted for inpatient services and is medically appropriate meeting medical necessity for inpatient admission as outlined in my documentation. I reasonably expect the patient will require inpatient services that span a period time over 2 midnights. I reasonably expect this patient to be discharged or transferred within 96 hours [facility]. Disposition -I would anticipate discharge to Home with Lola. Primary care physician -Dr. Lucila Walton, [place] Hospitalist- Kush Mancini M.D.
[2020-11-21] MEDS ORDERED: Furosemide 20 MG/2 ML VIAL IVPUSH ONE (18:00)
[2020-11-21] MEDS: cefTRIAXone 1 GM in Sodium Chloride 0.9% 50 ML IV SCH (18:13)
[2020-11-21] MEDS: Pantoprazole 40 MG Tab.CR PO SCH (21:25)
[2020-11-22] MEDS: Ketoconazole 2% Crm 30 GM Tube TOP SCH ×2 (08:10→21:24)
[2020-11-22] MEDS: amLODIPine 5 MG Tab PO SCH (08:10)
[2020-11-22] MEDS: Magnesium Oxide 400 MG Tab PO SCH ×2 (08:10→21:24)
[2020-11-22] MEDS: Pravastatin 20 MG Tab PO SCH (08:11)
[2020-11-22] MEDS: Potassium Chloride 20 MEQ Tab.ER PO SCH ×2 (08:11→21:24)
[2020-11-22] MEDS: Enoxaparin 40 MG/0.4 ML Syringe SUBCUT SCH (08:11)
[2020-11-22] MEDS: Losartan 50 MG Tab PO SCH (08:11)
[2020-11-22] MEDS ORDERED: Furosemide 20 MG/2 ML VIAL IVPUSH ONE ×2 (09:15→19:00)
--- NOTE | 2020-11-22 13:27 | PCM.PN ---
- General Info Date of Service: 11/22/20 Subjective Update: Mr. Monroy has been stable since yesterday. Vital signs have been good and he has remained afebrile. Overall strength and appetite have improved. His feels that he is almost back to his usual baseline. Because of his underlying dementia and severe expressive aphasia he is unable to provide meaningful information concerning recent symptoms or review of systems. - Patient Data Vitals - Most Recent: Last Vital Signs Temp 98.9 F 11/22/20 11:00 Pulse 82 11/22/20 11:00 Resp 16 11/22/20 11:00 BP 110/59 L 11/22/20 11:00 Pulse Ox 95 11/22/20 11:00 Weight - Most Recent: 277 lb 12.801 oz I&O - Last 24 Hours: Intake & Output 11/21/20 11/22/20 11/22/20 22:59 06:59 14:59 Intake Total 480 Output Total 500 1200 350 Balance -20 -1200 -350 Lab Results Last 24 Hours: Laboratory Results - last 24 hr 11/22/20 Range/Units 04:35 Sodium 140 (140-148) mmol/L Potassium 4.1 (3.6-5.2) mmol/L Chloride 106 (100-108) mmol/L Carbon Dioxide 23 (21-32) mmol/L Anion Gap 11.4 (5.0-14.0) mmol/L BUN 15 (7-18) mg/dL Creatinine 0.8 (0.8-1.3) mg/dL Est Cr Clr Drug Dosing 73.40 mL/min Estimated GFR (MDRD) > 60 (>60) Glucose 114 H (74-106) mg/dL Calcium 8.5 (8.5-10.1) mg/dL Ady Results Last 24 Hours: Microbiology 11/19/20 19:18 Aerobic Blood Culture - Preliminary Blood - Arm, Left NO GROWTH AFTER 2 DAYS Anaerobic Blood Culture - Preliminary NO GROWTH AFTER 2 DAYS 11/19/20 18:49 Aerobic Blood Culture - Preliminary Blood - Arm, Right NO GROWTH AFTER 2 DAYS Anaerobic Blood Culture - Preliminary NO GROWTH AFTER 2 DAYS Med Orders - Current: Current Medications Acetaminophen (Acetaminophen 325 Mg Tab) 650 mg PO Q4H PRN PRN Reason: Pain (Mild 1-3)/fever Last Admin: 11/19/20 22:24 Dose: 650 mg Documented by: Hydrocodone Bitart/Acetaminophen (Acetaminophen/Hydrocodone 325-5 Mg Tab) 1 tab PO Q4H PRN PRN Reason: Pain (moderate 4-6) Amlodipine Besylate (Amlodipine 5 Mg Tab) 10 mg PO DAILY [facility] Last Admin: 11/22/20 08:10 Dose: 10 mg Documented by: Bisacodyl (Bisacodyl 5 Mg Tab) 5 mg PO DAILY PRN PRN Reason: Constipation Last Admin: 11/19/20 22:23 Dose: 5 mg Documented by: Docusate Sodium (Docusate Sodium 100 Mg Cap) 100 mg PO BID PRN PRN Reason: Constipation Last Admin: 11/19/20 22:21 Dose: 100 mg Documented by: Enoxaparin Sodium (Enoxaparin 40 Mg/0.4 Ml Syringe) 40 mg SUBCUT DAILY [facility] Last Admin: 11/22/20 08:11 Dose: 40 mg Documented by: Furosemide (Furosemide 40 Mg/4 Ml Vial) 20 mg IVPUSH NOW ONE Stop: 11/22/20 19:01 Furosemide (Furosemide 40 Mg Tab) 40 mg PO DAILY [facility] Ceftriaxone Sodium 1 gm/ (Sodium Chloride) 50 mls @ 100 mls/hr IV Q24H [facility] Last Admin: 11/21/20 18:13 Dose: 100 mls/hr Documented by: Ketoconazole (Ketoconazole 2% Crm 30 Gm Tube) 0 gm TOP BID [facility] Last Admin: 11/22/20 08:10 Dose: 1 applic Documented by: Loperamide HCl (Loperamide 2 Mg Cap) 2 mg PO ASDIRECTED PRN PRN Reason: Diarrhea Losartan Potassium (Losartan 50 Mg Tab) 50 mg PO DAILY [facility] Last Admin: 11/22/20 08:11 Dose: 50 mg Documented by: Magnesium Oxide (Magnesium Oxide 400 Mg Tab) 400 mg PO BID [facility] Last Admin: 11/22/20 08:10 Dose: 400 mg Documented by: Morphine Sulfate (Morphine 2 Mg/Ml Syringe) 2 mg IVPUSH Q2H PRN PRN Reason: Pain (severe 7-10) Ondansetron HCl (Ondansetron 4 Mg Tab.Dis) 4 mg PO Q6H PRN PRN Reason: Nausea able to take PO Pantoprazole Sodium (Pantoprazole 40 Mg Tab.Cr) 40 mg PO BEDTIME [facility] Last Admin: 11/21/20 21:25 Dose: 40 mg Documented by: Timolol 0.5% Opth (Soln (Ptom)) 0 each EYEBOTH BEDTIME [facility] Polyethylene Glycol (Polyethylene Glycol 3350 Powder 17 Gm Packet) 17 gm PO ASDIRECTED PRN PRN Reason: Constipation Potassium Chloride (Potassium Chloride 20 Meq Tab.Er) 20 meq PO BID [facility] Last Admin: 11/22/20 08:11 Dose: 20 meq Documented by: Pravastatin Sodium (Pravastatin 20 Mg Tab) 40 mg PO DAILY [facility] Last Admin: 11/22/20 08:11 Dose: 40 mg Documented by: Discontinued Medications Furosemide (Furosemide 40 Mg Tab) 40 mg PO DAILY [facility] Last Admin: 11/21/20 08:44 Dose: 40 mg Documented by: Furosemide (Furosemide 40 Mg/4 Ml Vial) 20 mg IVPUSH NOW ONE Stop: 11/21/20 09:39 Last Admin: 11/21/20 10:58 Dose: Not Given Documented by: Furosemide (Furosemide 20 Mg/2 Ml Vial) 20 mg IVPUSH NOW ONE Stop: 11/21/20 18:01 Last Admin: 11/21/20 17:00 Dose: 20 mg Documented by: Furosemide (Furosemide 20 Mg/2 Ml Vial) 20 mg IVPUSH NOW ONE Stop: 11/22/20 09:16 Last Admin: 11/22/20 10:01 Dose: 20 mg Documented by: Ceftriaxone Sodium 2 gm/ (Sodium Chloride) 50 mls @ 100 mls/hr IV ONETIME ONE Stop: 11/19/20 19:50 Last Admin: 11/19/20 19:40 Dose: 100 mls/hr Documented by: Sodium Chloride (Normal Saline) 1,000 mls @ 500 mls/hr IV ASDIRECTED [facility] Last Admin: 11/19/20 20:26 Dose: 500 mls/hr Documented by: Ceftriaxone Sodium 1 gm/ (Sodium Chloride) 50 mls @ 100 mls/hr IV Q24H [facility] Sodium Chloride (Normal Saline) 1,000 mls @ 100 mls/hr IV ASDIRECTED [facility] Last Admin: 11/20/20 08:38 Dose: 100 mls/hr Documented by: Pantoprazole Sodium (Pantoprazole 40 Mg Vial) 40 mg IV BEDTIME [facility] Last Admin: 11/19/20 22:24 Dose: 40 mg Documented by: - Exam Quality Assessment: Urine Catheter, DVT Prophylaxis Urinary Catheter Total Time: 1Days 21Hours General: Alert, Cooperative, No Acute Distress Lungs: Clear to Auscultation, Normal Respiratory Effort Cardiovascular: Regular Rate, Regular Rhythm, No Murmurs GI/Abdominal Exam: Soft, Non-Tender, No Organomegaly, No Distention Extremities: Non-Tender, Pedal Edema - Patient Data Lab Results Last 24 hrs: Laboratory Results - last 24 hr 11/22/20 Range/Units 04:35 Sodium 140 (140-148) mmol/L Potassium 4.1 (3.6-5.2) mmol/L Chloride 106 (100-108) mmol/L Carbon Dioxide 23 (21-32) mmol/L Anion Gap 11.4 (5.0-14.0) mmol/L BUN 15 (7-18) mg/dL Creatinine 0.8 (0.8-1.3) mg/dL Est Cr Clr Drug Dosing 73.40 mL/min Estimated GFR (MDRD) > 60 (>60) Glucose 114 H (74-106) mg/dL Calcium 8.5 (8.5-10.1) mg/dL Result Diagrams: 11/20/20 06:08 11/22/20 04:35 Ady Results Last 24 hrs: Microbiology 11/19/20 19:18 Aerobic Blood Culture - Preliminary Blood - Arm, Left NO GROWTH AFTER 2 DAYS Anaerobic Blood Culture - Preliminary NO GROWTH AFTER 2 DAYS 11/19/20 18:49 Aerobic Blood Culture - Preliminary Blood - Arm, Right NO GROWTH AFTER 2 DAYS Anaerobic Blood Culture - Preliminary NO GROWTH AFTER 2 DAYS Sepsis Event Note - Evaluation Sepsis Screening Result: No Definite Risk - Focused Exam Vital Signs: Vital Signs Temp Pulse Resp BP BP Pulse Ox 11/22/20 11:00 98.9 F 82 16 110/59 L 95 11/22/20 08:11 134/71 11/22/20 08:10 134/71 11/22/20 07:00 98.5 F 76 16 134/71 95 11/22/20 02:44 97.9 F 76 18 145/66 H 95 - Problem List Review Problem List Initiated/Reviewed/Updated: Yes - My Orders Last 24 Hours: My Active Orders 11/22/20 19:00 Furosemide [Lasix] 20 mg IVPUSH NOW ONE 11/23/20 09:00 Furosemide [Lasix] 40 mg PO DAILY - Plan Plan:: ASSESSMENT AND PLAN Urinary Tract Infection-causing severe weakness and complicating previous CVA with right-sided weakness. 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 - Nutrition Regular - chronic West catheter -monitor I & O -consult to PT/OT CODE STATUS -DNR/DNI, Admission justification -this patient will be admitted for inpatient services and is medically appropriate meeting medical necessity for inpatient admission as outlined in my documentation. I reasonably expect the patient will require inpatient services that span a period time over 2 midnights. I reasonably expect this patient to be discharged or transferred within 96 hours [facility]. Disposition -I would anticipate discharge to Home with Lola. Primary care physician -Dr. Lucila Walton, [place] Hospitalist- Kush Mancini M.D.
--- NOTE | 2020-11-22 13:44 | PCM.DCSUM1 ---
Discharge Summary - Hospital Course Brief History: Mr. Monroy is an 80-year-old gentleman who was admitted through the emergency department with progressive weakness secondary to underlying urinary tract infection with a chronic indwelling West catheter. 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 - Discharge Diagnosis/Problem(s) (1) CVA, old, aphasia SNOMED Code(s): 282668558 ICD Code: I69.320 - APHASIA FOLLOWING CEREBRAL INFARCTION Status: Acute Priority: High Current Visit: Yes (2) Fever SNOMED Code(s): 988401684 ICD Code: R50.9 - FEVER, UNSPECIFIED Status: Acute Current Visit: Yes Qualifiers: Encounter type: initial encounter (3) UTI (urinary tract infection) SNOMED Code(s): 29885611 ICD Code: N39.0 - URINARY TRACT INFECTION, SITE NOT SPECIFIED Status: Acute Priority: High Current Visit: Yes Qualifiers: Urinary tract infection type: catheter-associated UTI Indwelling urinary catheter type: indwelling urethral catheter Encounter type: initial encounter Qualified Code(s): T83.511A - Infection and inflammatory reaction due to indwelling urethral catheter, initial encounter; N39.0 - Urinary tract infection, site not specified (4) Dementia SNOMED Code(s): 80573635 ICD Code: F03.90 - UNSPECIFIED DEMENTIA WITHOUT BEHAVIORAL DISTURBANCE Status: Chronic Priority: High Current Visit: Yes Qualifiers: Dementia type: unspecified type Dementia behavioral disturbance: without behavioral disturbance Qualified Code(s): F03.90 - Unspecified dementia without behavioral disturbance (5) Chronic indwelling West catheter SNOMED Code(s): 695069485 ICD Code: Z97.8 - PRESENCE OF OTHER SPECIFIED DEVICES Status: Chronic Priority: Medium Current Visit: No (6) Generalized weakness SNOMED Code(s): 32011035 ICD Code: R53.1 - WEAKNESS Status: Chronic Current Visit: No - Patient Summary/Data Consults: Consultations 09/02/21 21:25 OT Evaluation and Treatment [CONS] Routine Please Evaluate and Treat. OT Reason for Consult: Discharge Planning Special Instructions: 2017 CVA with right sided impairment, speech impaired This query below is only for informational purposes and is not editable. PT Evaluation and Treatment [CONS] Routine Please Evaluate and Treat. PT Reason for Consult: Strengthening Special Instructions: 2017 CVA right sided impairment This query below is only for informational purposes and is not editable. Spiritual Care Follow Up [CONS] Routine Spiritual Resources: [facility] Course: Mr. Monroy is a 80-year-old male with a history of CVA resulting in right- sided weakness, chronic significant aphasia, and an indwelling West catheter presented with mental status change and fever which started fairly suddenly after breakfast on the morning of admission. He ate a full breakfast, was feeling fine, but afterwards his teeth started chattering and he has been febrile and somewhat confused all day. Not drinking as much water as he usually does but no nausea or vomiting. He had some diarrhea 2 days ago but that is improved. He was on an antibiotic for his chronic indwelling catheter but they stopped that recently. Urinalysis was obtained in the emergency department and showed evidence of underlying infection. Blood cultures were obtained and he was started on IV antibiotic therapy with ceftriaxone. Blood cultures remain negative throughout his hospital stay. He slowly improved over the next few days of hospitalization with increased strength and appetite. He was very close to baseline at the time of discharge. Because of his weakness he was seen daily during his hospital stay by physical therapy. He will be transitioned to oral antibiotic therapy with cephalexin 500 mg every 8 hours and will complete an additional 3 days of oral antibiotic therapy after discharge. Activity will be as tolerated and he will resume his usual diet. Home care services will be arranged for him including nursing care, home health aide, as well as physical therapy and Occupational Therapy. - Patient Instructions Diet: Low Sodium Activity: As Tolerated Other/Special Instructions: Please schedule follow-up appointment with primary care provider within 1 week. - Discharge Plan *PRESCRIPTION DRUG MONITORING PROGRAM REVIEWED*: Not Applicable *COPY OF PRESCRIPTION DRUG MONITORING REPORT IN PATIENT YAS: Not Applicable Prescriptions/Med Rec: cephALEXin [Cephalexin] 500 mg PO Q8H #9 tablet Home Medications: Home Meds Aspirin [Halfprin] 81 mg PO DAILY 05/11/18 [History] Losartan [Cozaar] 50 mg PO DAILY 05/11/18 [History] Pravastatin [Pravachol] 40 mg PO DAILY 05/11/18 [History] amLODIPine Besylate [Amlodipine Besylate] 10 mg PO DAILY 05/11/18 [History] polyethylene glycoL 3350 [MiraLAX] 1 pack PO ASDIRECTED PRN 05/11/18 [History] Furosemide 40 mg PO DAILY 02/11/19 [History] Magnesium Oxide 400 mg PO BID #60 tablet 02/13/19 [Rx] Potassium Chloride 20 meq PO BID #60 tablet.er 02/13/19 [Rx] Acetaminophen 325 mg PO TID PRN 11/19/20 [History] Acetaminophen/HYDROcodone [HYDROcodone-Acetaminophen 5-325 MG *] 1 tab PO BID PRN 11/19/20 [History] Ketoconazole [Nizoral 2% Crm] 1 applic TOP BID 11/19/20 [History] Loperamide [Imodium AD] 2 mg PO ASDIRECTED PRN 11/19/20 [History] Timolol [Betimol 0.5% Ophth Soln] 1 drop OP BEDTIME 11/19/20 [History] cephALEXin [Cephalexin] 500 mg PO Q8H #9 tablet 11/22/20 [Rx] Referrals: Bernadette Walton MD [Primary Care Provider] - - Discharge Summary/Plan Comment DC Time >30 min.: No Total # of Minutes for Discharge Time: 20 - Patient Data Vitals - Most Recent: Last Vital Signs Temp 98.9 F 11/22/20 11:00 Pulse 82 11/22/20 11:00 Resp 16 11/22/20 11:00 BP 110/59 L 11/22/20 11:00 Pulse Ox 95 11/22/20 11:00 Weight - Most Recent: 277 lb 12.801 oz I&O - Last 24 hours: Intake & Output 11/21/20 11/22/20 11/22/20 22:59 06:59 14:59 Intake Total 480 Output Total 500 1200 350 Balance -20 -1200 -350 Lab Results - Last 24 hrs: Laboratory Results - last 24 hr 11/22/20 Range/Units 04:35 Sodium 140 (140-148) mmol/L Potassium 4.1 (3.6-5.2) mmol/L Chloride 106 (100-108) mmol/L Carbon Dioxide 23 (21-32) mmol/L Anion Gap 11.4 (5.0-14.0) mmol/L BUN 15 (7-18) mg/dL Creatinine 0.8 (0.8-1.3) mg/dL Est Cr Clr Drug Dosing 73.40 mL/min Estimated GFR (MDRD) > 60 (>60) Glucose 114 H (74-106) mg/dL Calcium 8.5 (8.5-10.1) mg/dL KEEGAN Results - Last 24 hrs: Microbiology 11/19/20 19:18 Aerobic Blood Culture - Preliminary Blood - Arm, Left NO GROWTH AFTER 2 DAYS Anaerobic Blood Culture - Preliminary NO GROWTH AFTER 2 DAYS 11/19/20 18:49 Aerobic Blood Culture - Preliminary Blood - Arm, Right NO GROWTH AFTER 2 DAYS Anaerobic Blood Culture - Preliminary NO GROWTH AFTER 2 DAYS Med Orders - Current: Current Medications Acetaminophen (Acetaminophen 325 Mg Tab) 650 mg PO Q4H PRN PRN Reason: Pain (Mild 1-3)/fever Last Admin: 11/19/20 22:24 Dose: 650 mg Documented by: Hydrocodone Bitart/Acetaminophen (Acetaminophen/Hydrocodone 325-5 Mg Tab) 1 tab PO Q4H PRN PRN Reason: Pain (moderate 4-6) Amlodipine Besylate (Amlodipine 5 Mg Tab) 10 mg PO DAILY [facility] Last Admin: 11/22/20 08:10 Dose: 10 mg Documented by: Bisacodyl (Bisacodyl 5 Mg Tab) 5 mg PO DAILY PRN PRN Reason: Constipation Last Admin: 11/19/20 22:23 Dose: 5 mg Documented by: Docusate Sodium (Docusate Sodium 100 Mg Cap) 100 mg PO BID PRN PRN Reason: Constipation Last Admin: 11/19/20 22:21 Dose: 100 mg Documented by: Enoxaparin Sodium (Enoxaparin 40 Mg/0.4 Ml Syringe) 40 mg SUBCUT DAILY JOHN Last Admin: 11/22/20 08:11 Dose: 40 mg Documented by: Furosemide (Furosemide 40 Mg Tab) 40 mg PO DAILY [facility] Furosemide (Furosemide 20 Mg/2 Ml Vial) 20 mg IVPUSH NOW ONE Stop: 11/22/20 19:01 Ceftriaxone Sodium 1 gm/ (Sodium Chloride) 50 mls @ 100 mls/hr IV Q24H JOHN Last Admin: 11/21/20 18:13 Dose: 100 mls/hr Documented by: Ketoconazole (Ketoconazole 2% Crm 30 Gm Tube) 0 gm TOP BID [facility] Last Admin: 11/22/20 08:10 Dose: 1 applic Documented by: Loperamide HCl (Loperamide 2 Mg Cap) 2 mg PO ASDIRECTED PRN PRN Reason: Diarrhea Losartan Potassium (Losartan 50 Mg Tab) 50 mg PO DAILY [facility] Last Admin: 11/22/20 08:11 Dose: 50 mg Documented by: Magnesium Oxide (Magnesium Oxide 400 Mg Tab) 400 mg PO BID [facility] Last Admin: 11/22/20 08:10 Dose: 400 mg Documented by: Morphine Sulfate (Morphine 2 Mg/Ml Syringe) 2 mg IVPUSH Q2H PRN PRN Reason: Pain (severe 7-10) Ondansetron HCl (Ondansetron 4 Mg Tab.Dis) 4 mg PO Q6H PRN PRN Reason: Nausea able to take PO Pantoprazole Sodium (Pantoprazole 40 Mg Tab.Cr) 40 mg PO BEDTIME [facility] Last Admin: 11/21/20 21:25 Dose: 40 mg Documented by: Timolol 0.5% Opth (Soln (Ptom)) 0 each EYEBOTH BEDTIME [facility] Polyethylene Glycol (Polyethylene Glycol 3350 Powder 17 Gm Packet) 17 gm PO ASDIRECTED PRN PRN Reason: Constipation Potassium Chloride (Potassium Chloride 20 Meq Tab.Er) 20 meq PO BID [facility] Last Admin: 11/22/20 08:11 Dose: 20 meq Documented by: Pravastatin Sodium (Pravastatin 20 Mg Tab) 40 mg PO DAILY [facility] Last Admin: 11/22/20 08:11 Dose: 40 mg Documented by: Discontinued Medications Furosemide (Furosemide 40 Mg Tab) 40 mg PO DAILY [facility] Last Admin: 11/21/20 08:44 Dose: 40 mg Documented by: Furosemide (Furosemide 40 Mg/4 Ml Vial) 20 mg IVPUSH NOW ONE Stop: 11/21/20 09:39 Last Admin: 11/21/20 10:58 Dose: Not Given Documented by: Furosemide (Furosemide 20 Mg/2 Ml Vial) 20 mg IVPUSH NOW ONE Stop: 11/21/20 18:01 Last Admin: 11/21/20 17:00 Dose: 20 mg Documented by: Furosemide (Furosemide 20 Mg/2 Ml Vial) 20 mg IVPUSH NOW ONE Stop: 09/05/21 09:16 Last Admin: 11/22/20 10:01 Dose: 20 mg Documented by: Ceftriaxone Sodium 2 gm/ (Sodium Chloride) 50 mls @ 100 mls/hr IV ONETIME ONE Stop: 11/19/20 19:50 Last Admin: 11/19/20 19:40 Dose: 100 mls/hr Documented by: Sodium Chloride (Normal Saline) 1,000 mls @ 500 mls/hr IV ASDIRECTED [facility] Last Admin: 11/19/20 20:26 Dose: 500 mls/hr Documented by: Ceftriaxone Sodium 1 gm/ (Sodium Chloride) 50 mls @ 100 mls/hr IV Q24H JOHN Sodium Chloride (Normal Saline) 1,000 mls @ 100 mls/hr IV ASDIRECTED [facility] Last Admin: 11/20/20 08:38 Dose: 100 mls/hr Documented by: Pantoprazole Sodium (Pantoprazole 40 Mg Vial) 40 mg IV BEDTIME [facility] Last Admin: 11/19/20 22:24 Dose: 40 mg Documented by: - Exam Quality Assessment: Reports: Urine Catheter, DVT Prophylaxis General: Reports: Alert, Cooperative, No Acute Distress Lungs: Reports: Clear to Auscultation, Normal Respiratory Effort Cardiovascular: Reports: Regular Rate, Regular Rhythm, No Murmurs GI/Abdominal Exam: Soft, Non-Tender, No Organomegaly, No Distention Extremities: Non-Tender, Pedal Edema
[2020-11-22] MEDS ORDERED: Furosemide 40 MG/4 ML VIAL IVPUSH ONE (19:00)
[2020-11-22] MEDS: cefTRIAXone 1 GM in Sodium Chloride 0.9% 50 ML IV SCH (19:45)
[2020-11-22] MEDS ORDERED: OPTH EYEBOTH SCH (21:00)
[2020-11-22] MEDS ORDERED: TIMOLOL 0.5% EYEBOTH SCH (21:00)
[2020-11-22] MEDS: Pantoprazole 40 MG Tab.CR PO SCH (21:24)
[2020-11-23] MEDS ORDERED: Furosemide 40 MG Tab PO SCH (09:00)
== END 2020-11-23 07:45 | disposition home health service (06) | DRG 699 ==
LOC: JP.ED 18:04 → JP.MS 20:40
PROVIDERS: ADMIT Hospitalist; ATTEND Hospitalist
DX: T83.511A Infection and inflammatory reaction due to indwelling urethral catheter, initial encounter (principal); I69.351 Hemiplegia and hemiparesis following cerebral infarction affecting right dominant side; Z68.41 Body mass index [BMI] 40.0-44.9, adult; N39.0 Urinary tract infection, site not specified; F03.90 Unspecified dementia, unspecified severity, without behavioral disturbance, psychotic disturbance, mood disturbance, and anxiety; I69.320 Aphasia following cerebral infarction; E78.00 Pure hypercholesterolemia, unspecified; Z66 Do not resuscitate; Z20.822 Contact with and (suspected) exposure to COVID-19; I10 Essential (primary) hypertension; H54.7 Unspecified visual loss; M19.90 Unspecified osteoarthritis, unspecified site; N42.9 Disorder of prostate, unspecified; E66.9 Obesity, unspecified; Z88.2 Allergy status to sulfonamides; Z88.8 Allergy status to other drugs, medicaments and biological substances; Z79.82 Long term (current) use of aspirin; Z79.899 Other long term (current) drug therapy; Z90.49 Acquired absence of other specified parts of digestive tract
CPT/HCPCS: 36415; 51702; 71045; 71045-26; 80048; 80053; 81001; 83605; 85025; 87040; 96365; 97110-GP; 97140-GP; 97162-GP; 97165-GO; 97530-GP; 97535-GO; 99285-25; A9270-GY; C9113; J0696; J1650; J1940; J7030; U0002

== ENCOUNTER 2020-12-23 07:58 | Emergency (ER) | payer MEDICARE, BC ==
[2020-12-23] MEDS ORDERED: Sodium Chloride 0.9% 500 ML IV ONE (09:07)
--- NOTE | 2020-12-23 10:10 | EDM.PDOC ---
ED HPI GENERAL MEDICAL PROBLEM - General Chief Complaint: Genitourinary Problem Stated Complaint: MEDICAL VIA [facility] Time Seen by Provider: 12/23/20 08:06 Source of Information: Reports: EMS, Family History Limitations: Reports: Altered Mental Status - History of Present Illness INITIAL COMMENTS - FREE TEXT/NARRATIVE: 80-year-old male presenting to the ED via [facility] for evaluation of generalized weakness, increased confusion and strong, foul-smelling urine. The patient lives at home with his significant other and sleeps in his lift chair. Today his was unable to get him out of the lift chair and noticed that he was acting more confused. The patient has an indwelling Hernandez catheter that was recently changed. He is minimally verbal secondary here to a stroke and possible UTI. He does not answer my questions. The patient normally doctors with the [facility] and has home health provided by [facility]. He had his Hernandez catheter replaced on December 17 (6 days ago). The did report the patient had a 101 F fever at home today. He was afebrile upon arrival to the ED. - Related Data Allergies Allergy/AdvReac Type Severity Reaction Status Date / Time atenolol Allergy Unknown Cannot Verified 12/23/20 08:18 Remember atorvastatin Allergy Unknown Cannot Verified 12/23/20 08:18 Remember Sulfa (Sulfonamide Allergy Unknown Other Verified 12/23/20 08:18 Antibiotics) Home Meds: Home Meds Aspirin [Halfprin] 81 mg PO DAILY 05/11/18 [History] Losartan [Cozaar] 50 mg PO DAILY 05/11/18 [History] Pravastatin [Pravachol] 40 mg PO DAILY 05/11/18 [History] amLODIPine Besylate [Amlodipine Besylate] 10 mg PO DAILY 05/11/18 [History] polyethylene glycoL 3350 [MiraLAX] 1 pack PO ASDIRECTED PRN 05/11/18 [History] Furosemide 40 mg PO DAILY 02/11/19 [History] Magnesium Oxide 400 mg PO BID #60 tablet 02/13/19 [Rx] Potassium Chloride 20 meq PO BID #60 tablet.er 02/13/19 [Rx] Acetaminophen 325 mg PO TID PRN 11/19/20 [History] Acetaminophen/HYDROcodone [HYDROcodone-Acetaminophen 5-325 MG *] 1 tab PO BID PRN 11/19/20 [History] Ketoconazole [Nizoral 2% Crm] 1 applic TOP BID 11/19/20 [History] Loperamide [Imodium AD] 2 mg PO ASDIRECTED PRN 11/19/20 [History] Timolol [Betimol 0.5% Ophth Soln] 1 drop OP BEDTIME 11/19/20 [History] Past Medical History HEENT History: Reports: Glaucoma, Impaired Vision Cardiovascular History: Reports: High Cholesterol, Hypertension Gastrointestinal History: Reports: None Genitourinary History: Reports: Prostate Disorder Other Genitourinary History: 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, Musculoskeletal History: Reports: Arthritis Neurological History: Reports: CVA, TIA, Other (See Below) Other Neuro History: 2017- stroke Psychiatric History: Reports: Dementia Endocrine/Metabolic History: Reports: Obesity/BMI 30+ - Infectious Disease History Infectious Disease History: Reports: Chicken Pox - Past Surgical History Head Surgeries/Procedures: Reports: None HEENT Surgical History: Reports: None Cardiovascular Surgical History: Reports: None GI Surgical History: Reports: Cholecystectomy Other Male Surgeries/Procedures: 2017 has had a hernandez Endocrine Surgical History: Reports: None Neurological Surgical History: Reports: None Musculoskeletal Surgical History: Reports: Hip Replacement Dermatological Surgical History: Reports: None Social & Family History - Family History Family Medical History: No Pertinent Family History - Tobacco Use Tobacco Use Status *Q: Never Tobacco User - Caffeine Use Caffeine Use: Reports: None - Living Situation & Occupation Living situation: Reports: Occupation: Disabled (lives with of 53 years who 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 have one Daughter Olivia) ED ROS GENERAL - Review of Systems Review Of Systems: Unable To Obtain Reason Not Obtained: Patient not answering questions. At this time he is nonverbal. ED EXAM, GENERAL - Physical Exam Exam: See Below Exam Limited By: Altered Mental Status General Appearance: Anxious, Mild Distress, Obese Eye Exam: Bilateral Eye: EOMI, PERRL Throat/Mouth: Normal Oropharynx Head: Atraumatic, Normocephalic Neck: Normal Inspection, Supple. No: Lymphadenopathy (R), Lymphadenopathy (L) Respiratory/Chest: No Respiratory Distress, Lungs Clear, Normal Breath Sounds Cardiovascular: Normal Peripheral Pulses, Regular Rate, Rhythm, No Murmur Peripheral Pulses: 2+: Radial (L), Radial (R) GI/Abdominal: Normal Bowel Sounds, Soft, Non-Tender Extremities: No Pedal Edema Neurological: Alert (Alert but not following commands) Psychiatric: Anxious Skin Exam: Warm, Dry, Normal Color Lymphatic: No Adenopathy Course - Vital Signs Last Recorded V/S: Last Vital Signs Temp 36.7 C 12/23/20 08:10 Pulse 77 12/23/20 11:00 Resp 20 12/23/20 09:00 BP 127/63 12/23/20 11:00 Pulse Ox 87 L 12/23/20 11:00 - Orders/Labs/Meds Orders: Active Orders 24 hr Category Date Time Status Head wo Cont [CT] Stat Exams 12/23/20 11:01 Taken CULTURE URINE [RM] Stat Lab 12/23/20 10:09 Received Labs: Laboratory Tests 12/23/20 12/23/20 12/23/20 Range/Units 08: 08:21 10:09 WBC 16.7 H (4.5-11.0) K/uL RBC 6.28 H (4.30-5.90) M/uL Hgb 17.9 H (12.0-15.0) g/dL Hct 52.8 (40.0-54.0) % MCV 84 (80-98) fL MCH 29 (27-31) pg MCHC 34 (32-36) % Plt Count 200 (150-400) K/uL Neut % (Auto) 84.3 H (36-66) % Lymph % (Auto) 5.4 L (24-44) % Davidson % (Auto) 10.1 H (2-6) % Eos % (Auto) 0.1 L (2-4) % Baso % (Auto) 0.1 (0-1) % Sodium 137 L (140-148) mmol/L Potassium 4.2 (3.6-5.2) mmol/L Chloride 102 (100-108) mmol/L Carbon Dioxide 25 (21-32) mmol/L Anion Gap 14.2 H (5.0-14.0) mmol/L BUN 20 H (7-18) mg/dL Creatinine 1.1 (0.8-1.3) mg/dL Est Cr Clr Drug Dosing 53.56 mL/min Estimated GFR (MDRD) > 60 (>60) Glucose 141 H (74-106) mg/dL Calcium 8.6 (8.5-10.1) mg/dL C-Reactive Protein 8.43 H (0.0-0.3) mg/dL Urine Color Yellow (YELLOW) Urine Appearance Cloudy A (CLEAR) Urine pH 6.5 (5.0-8.0) Ur Specific [place] 1.020 (1.008-1.030) Urine Protein 100 H (NEGATIVE) mg/dL Urine Glucose (UA) Negative (NEGATIVE) mg/dL Urine Ketones Negative (NEGATIVE) mg/dL Urine Occult Blood Moderate H (NEGATIVE) Urine Nitrite Positive H (NEGATIVE) Urine Bilirubin Negative (NEGATIVE) Urine Urobilinogen 0.2 (0.2-1.0) EU/dL Ur Leukocyte Esterase Small H (NEGATIVE) Urine RBC 20-30 H (0-5) Urine WBC 40-50 H (0-5) Ur Epithelial Cells Not seen Amorphous Sediment Few Urine Bacteria Many Urine Mucus Moderate SARS CoV-2 RNA Rapid CHRIS 12/23/20 Range/Units 10:14 WBC (4.5-11.0) K/uL RBC (4.30-5.90) M/uL Hgb (12.0-15.0) g/dL Hct (40.0-54.0) % MCV (80-98) fL MCH (27-31) pg MCHC (32-36) % Plt Count (150-400) K/uL Neut % (Auto) (36-66) % Lymph % (Auto) (24-44) % Davidson % (Auto) (2-6) % Eos % (Auto) (2-4) % Baso % (Auto) (0-1) % Sodium (140-148) mmol/L Potassium (3.6-5.2) mmol/L Chloride (100-108) mmol/L Carbon Dioxide (21-32) mmol/L Anion Gap (5.0-14.0) mmol/L BUN (7-18) mg/dL Creatinine (0.8-1.3) mg/dL Est Cr Clr Drug Dosing mL/min Estimated GFR (MDRD) (>60) Glucose (74-106) mg/dL Calcium (8.5-10.1) mg/dL C-Reactive Protein (0.0-0.3) mg/dL Urine Color (YELLOW) Urine Appearance (CLEAR) Urine pH (5.0-8.0) Ur Specific [place] (1.008-1.030) Urine Protein (NEGATIVE) mg/dL Urine Glucose (UA) (NEGATIVE) mg/dL Urine Ketones (NEGATIVE) mg/dL Urine Occult Blood (NEGATIVE) Urine Nitrite (NEGATIVE) Urine Bilirubin (NEGATIVE) Urine Urobilinogen (0.2-1.0) EU/dL Ur Leukocyte Esterase (NEGATIVE) Urine RBC (0-5) Urine WBC (0-5) Ur Epithelial Cells Amorphous Sediment Urine Bacteria Urine Mucus SARS CoV-2 RNA Rapid CHRIS Negative Meds: Medications Discontinued Medications Generic Name Dose Route Start Last Admin Trade Name Pravin PRN Reason Stop Dose Admin Sodium Chloride 500 mls @ 999 mls/hr 12/23/20 09:07 12/23/20 09:27 Normal Saline IV 12/23/20 09:37 999 mls/hr .BOLUS ONE Administration Ceftriaxone Sodium 2 gm/ 50 mls @ 100 mls/hr 12/23/20 10:57 12/23/20 11:14 Sodium Chloride IV 12/23/20 11:26 100 mls/hr ONETIME ONE Administration - Re-Assessments/Exams Free Text/Narrative Re-Assessment/Exam: 12/23/20 12:09 reviewed the patient's labs showing a significant leukocytosis of 16.7 with a neutrophil count of 84%. The hemoglobin is 17.9 with a hematocrit of 52.8 and a platelet count of 200,000. The patient's basic metabolic profile shows a sodium 137, potassium 4.2, chloride of 102, bicarbonate of 25, BUN of 20 with a creatinine 1.1 and glucose of 141. The C-reactive protein is markedly elevated at 8.45. COVID-19 swab is negative. The patient has a significant UA with positive nitrites, 20-30 RBCs and 40-50 WBCs. He does have a chronic indwelling Hernandez and we did get a urine culture. The [place] requested that we repeat a CT of his brain as he is more confused and less verbal today. The CT of the brain without contrast shows left-sided encephalomalacia from a previous left MCA stroke in the same distribution as was seen in January [address] There was no acute changes to signify a new stroke. I discussed the case with Dr. Meneses at the [facility] in [place] who accepts the patient in transfer to their facility for further care. We initiated antibiotics with Rocephin 2 g IV. Departure - Departure Time of Disposition: 12:14 Disposition: DC/Tfer to Acute Hospital 02 Clinical Impression: Chronic indwelling Hernandez catheter, CVA, old, aphasia, Generalized weakness, Neurogenic bladder, Paraplegia, History of atrial fibrillation, Polycythemia rubra vera, Essential hypertension Altered mental status Qualifiers: Altered mental status type: disorientation Qualified Code(s): R41.0 - Disorientation, unspecified Urinary tract infection Qualifiers: Urinary tract infection type: catheter-associated UTI Indwelling urinary catheter type: indwelling urethral catheter Encounter type: initial encounter Qualified Code(s): T83.511A - Infection and inflammatory reaction due to indwelling urethral catheter, initial encounter; N39.0 - Urinary tract infection, site not specified Dementia Qualifiers: Dementia type: unspecified type Dementia behavioral disturbance: without behavioral disturbance Qualified Code(s): F03.90 - Unspecified dementia without behavioral disturbance Fever Qualifiers: Encounter type: initial encounter - Discharge Information Referrals: PCP,None [Primary Care Provider] - Forms: ED Department Discharge Sepsis Event Note (ED) - Evaluation Sepsis Screening Result: No Definite Risk - Focused Exam Vital Signs: Vital Signs Temp Pulse Resp BP Pulse Ox 12/23/20 11:00 77 127/63 87 L 12/23/20 10:00 82 113/61 87 L 12/23/20 09:00 80 20 123/64 90 L 12/23/20 08:10 36.7 C 72 24 H 119/52 L 90 L - Problem List & Annotations (1) Dementia SNOMED Code(s): 94537827 Code(s): F03.90 - UNSPECIFIED DEMENTIA WITHOUT BEHAVIORAL DISTURBANCE Status: Chronic Priority: High Current Visit: Yes Qualifiers: Dementia type: unspecified type Dementia behavioral disturbance: without behavioral disturbance Qualified Code(s): F03.90 - Unspecified dementia without behavioral disturbance (2) UTI (urinary tract infection) SNOMED Code(s): 04072623 Code(s): N39.0 - URINARY TRACT INFECTION, SITE NOT SPECIFIED Status: Acute Priority: High Current Visit: Yes Qualifiers: Urinary tract infection type: catheter-associated UTI Indwelling urinary catheter type: indwelling urethral catheter Encounter type: initial encounter Qualified Code(s): T83.511A - Infection and inflammatory reaction due to indwelling urethral catheter, initial encounter; N39.0 - Urinary tract infection, site not specified (3) Chronic indwelling Hernandez catheter SNOMED Code(s): 767176581 Code(s): Z97.8 - PRESENCE OF OTHER SPECIFIED DEVICES Status: Chronic Priority: Medium Current Visit: Yes (4) Neurogenic bladder SNOMED Code(s): 040472749 Code(s): N31.9 - NEUROMUSCULAR DYSFUNCTION OF BLADDER, UNSPECIFIED Status: Chronic Priority: Medium Current Visit: Yes (5) Paraplegia SNOMED Code(s): 00734506 Code(s): G82.20 - PARAPLEGIA, UNSPECIFIED Status: Chronic Priority: Medium Current Visit: Yes (6) Polycythemia rubra vera SNOMED Code(s): 593861858 Code(s): D45 - POLYCYTHEMIA VERA Status: Chronic Priority: Medium Current Visit: Yes (7) Fever SNOMED Code(s): 978729234 Code(s): R50.9 - FEVER, UNSPECIFIED Status: Acute Priority: High Current Visit: Yes Qualifiers: Encounter type: initial encounter (8) Generalized weakness SNOMED Code(s): 04282487 Code(s): R53.1 - WEAKNESS Status: Chronic Priority: High Current Visit: Yes (9) CVA, old, aphasia SNOMED Code(s): 392854581 Code(s): I69.320 - APHASIA FOLLOWING CEREBRAL INFARCTION Status: Acute Priority: High Current Visit: Yes (10) Essential hypertension SNOMED Code(s): 17579527 Code(s): I10 - ESSENTIAL (PRIMARY) HYPERTENSION Status: Chronic Priority: High Current Visit: Yes (11) Altered mental status SNOMED Code(s): 419039843 Code(s): R41.82 - ALTERED MENTAL STATUS, UNSPECIFIED Status: Acute Priority: High Current Visit: Yes Qualifiers: Altered mental status type: disorientation Qualified Code(s): R41.0 - Disorientation, unspecified - Problem List Review Problem List Initiated/Reviewed/Updated: Yes - My Orders Last 24 Hours: My Active Orders 12/23/20 10:09 CULTURE URINE [RM] Stat 12/23/20 11:01 Head wo Cont [CT] Stat - Assessment/Plan Last 24 Hours: My Active Orders 12/23/20 10:09 CULTURE URINE [RM] Stat 12/23/20 11:01 Head wo Cont [CT] Stat
[2020-12-23] MEDS ORDERED: cefTRIAXone 2 GM in Sodium Chloride 0.9% 50 ML IV ONE (10:57)
--- NOTE | 2020-12-23 12:14 | CRLCT ---
For Patients: As a result of the Century Cures Act, medical imaging exams and procedure reports are released immediately into your electronic medical record. You may view this report before your referring provider. If you have questions, please contact your health care provider. Indication: Altered mental status Technique: Volumetric multidetector CT images of the head were obtained without the administration of low osmolar intravenous contrast. Comparison: CT head February 11, 2019 Findings: There is no intra-axial or extra-axial fluid collection. There is no mass effect or midline shift. Again seen is extensive cortical atrophy with sulcal widening and marked ex vacuo dilatation of the lateral ventricles, stable from comparison. There is redemonstration of encephalomalacia of the left occipital and parietal lobe with extensive confluent periventricular hypodensity commensurate with chronic small vessel disease. Otherwise, the brain parenchyma is grossly stable in attenuation and herr-white differentiation. The orbits and their contents are grossly within normal limits. The bony calvarium is grossly intact. The paranasal sinuses are clear. There is again seen opacification of the right mastoid air cells commensurate with sequela of mastoiditis. Impression: Overall stable remote ischemic, age-related, and chronic small-vessel disease changes of the brain without evidence of new acute intracranial abnormality. Findings were faxed to and confirmed received by Aramis at 12:07 p.m. December 23, [address] that all CT scans at this facility use dose modulation, iterative reconstruction, and/or weight-based dosing when appropriate to reduce radiation dose to as low as reasonably achievable. Dictated by Venancio Frazier MD @ 12/23/2020 12:12:48 PM (Electronically Signed)
[2020-12-23] MEDS ORDERED: Sodium Chloride 0.9% 1,000 ML IV SCH (12:15)
== END 2020-12-23 16:00 ==
LOC: JP.ED 07:58
DX: I63.9 Cerebral infarction, unspecified (principal); R47.01 Aphasia; R53.1 Weakness; T83.511A Infection and inflammatory reaction due to indwelling urethral catheter, initial encounter; N39.0 Urinary tract infection, site not specified; I10 Essential (primary) hypertension; I48.91 Unspecified atrial fibrillation; D45 Polycythemia vera; E78.00 Pure hypercholesterolemia, unspecified; E66.9 Obesity, unspecified; Z88.2 Allergy status to sulfonamides; Z88.8 Allergy status to other drugs, medicaments and biological substances; Z79.82 Long term (current) use of aspirin; Z79.899 Other long term (current) drug therapy; Z68.41 Body mass index [BMI] 40.0-44.9, adult; Z20.822 Contact with and (suspected) exposure to COVID-19
CPT/HCPCS: 36415; 70450; 80048; 81001; 83605; 85025; 86140; 87086; 87088; 87186; 96365; 99285; J0696; J7030; J7040; U0002

== ENCOUNTER 2021-01-20 09:19 | Emergency (ER) | payer MEDICARE, BC ==
[2021-01-20] MEDS ORDERED: Lactated Ringers 1,000 ML IV SCH (10:00)
[2021-01-20] MEDS ORDERED: Piperacillin/Tazobactam/Dext 3.375 GM in Premix Bag 1 BAG IV SCH (10:00)
[2021-01-20] MEDS ORDERED: Piperacillin/Tazobactam 3.375 GM in Sodium Chloride 0.9% 50 ML IV SCH (10:00)
--- NOTE | 2021-01-20 10:13 | EDM.PDOC ---
ED HPI GENERAL MEDICAL PROBLEM - General Chief Complaint: General Stated Complaint: MED VIA [facility] Time Seen by Provider: 01/20/21 09:48 Source of Information: Reports: Patient, RN Notes Reviewed History Limitations: Reports: No Limitations - History of Present Illness INITIAL COMMENTS - FREE TEXT/NARRATIVE: 80-year-old gentleman presents emergency department today for increased weakness, he has a very complex medical history was initially evaluated first part of December for weakness foul-smelling urine he does have a known history of CVA from 2017 has had chronic catheterization for several years initial evaluation at the time felt he was septic with urinary tract infection culture show it was Pseudomonas. Was subsequently transferred to the [facility] in [place] 2 weeks day he was discharged home he has been at home for about 2 weeks does have a PICC line in was receiving cefepime at home then a couple of days ago his primary care switched to cefepime to meropenem. Daughter is present and gives very good history states he has been on a continued decline seems a bit more confused has had increasing weakness. Fevers at home around 99 he is not Covid vaccinated, he has had increasing shortness of breath and is now hypoxic he normally does not use oxygen. - Related Data Allergies Allergy/AdvReac Type Severity Reaction Status Date / Time atenolol Allergy Unknown Cannot Verified 01/20/21 10:45 Remember atorvastatin Allergy Unknown Cannot Verified 01/20/21 10:45 Remember Sulfa (Sulfonamide Allergy Unknown Other Verified 01/20/21 10:45 Antibiotics) Home Meds: Home Meds Aspirin [Halfprin] 81 mg PO DAILY 05/11/18 [History] Losartan [Cozaar] 50 mg PO DAILY 05/11/18 [History] Pravastatin [Pravachol] 40 mg PO DAILY 05/11/18 [History] amLODIPine Besylate [Amlodipine Besylate] 5 mg PO DAILY 05/11/18 [History] polyethylene glycoL 3350 [MiraLAX] 1 pack PO ASDIRECTED PRN 05/11/18 [History] Furosemide 40 mg PO DAILY 02/11/19 [History] Potassium Chloride 20 meq PO BID #60 tablet.er 02/13/19 [Rx] Timolol [Betimol 0.5% Ophth Soln] 1 drop OP BEDTIME 11/19/20 [History] Acetaminophen [Tylenol] 650 mg PO BID 01/20/21 [History] Finasteride 5 mg PO DAILY 01/20/21 [History] Past Medical History HEENT History: Reports: Glaucoma, Hard of Hearing, Impaired Vision Other HEENT History: has bilat hearing aids, has dentures Cardiovascular History: Reports: High Cholesterol, Hypertension Genitourinary History: Reports: Prostate Disorder Other Genitourinary History: 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, Musculoskeletal History: Reports: Arthritis Neurological History: Reports: CVA, TIA, Other (See Below) Other Neuro History: 2017- stroke Psychiatric History: Reports: Dementia Endocrine/Metabolic History: Reports: Obesity/BMI 30+ Dermatologic History: Reports: Other (See Below) Other Dermatologic History: has pressure sore on bottom - Infectious Disease History Infectious Disease History: Reports: Chicken Pox - Past Surgical History Head Surgeries/Procedures: Reports: None HEENT Surgical History: Reports: None Cardiovascular Surgical History: Reports: None GI Surgical History: Reports: Cholecystectomy Male Surgical History: Reports: Other (See Below) Other Male Surgeries/Procedures: 2017 has had a hernandez Endocrine Surgical History: Reports: None Neurological Surgical History: Reports: None Musculoskeletal Surgical History: Reports: Hip Replacement Dermatological Surgical History: Reports: None Social & Family History - Family History Family Medical History: No Pertinent Family History - Tobacco Use Tobacco Use Status *Q: Never Tobacco User Second Hand Smoke Exposure: No - Caffeine Use Caffeine Use: Reports: Coffee - Recreational Drug Use Recreational Drug Use: No - Living Situation & Occupation Living situation: Reports: Occupation: Disabled (lives with of 53 years who is his Private Investigator. have one Daughter Olivia) ED ROS GENERAL - Review of Systems Review Of Systems: See Below Constitutional: Reports: Fever, Weakness, Fatigue HEENT: Reports: No Symptoms Respiratory: Reports: Shortness of Breath (Patient denies shortness of breath family states he gets short of breath with just a little movement) Cardiovascular: Reports: Dyspnea on Exertion GI/Abdominal: Reports: No Symptoms : Reports: No Symptoms Skin: Reports: Rash ED EXAM, GENERAL - Physical Exam Exam: See Below Exam Limited By: No Limitations General Appearance: Alert, WD/WN, No Apparent Distress Respiratory/Chest: No Respiratory Distress, No Accessory Muscle Use, Chest Non- Tender, Decreased Breath Sounds, Crackles Cardiovascular: No Murmur, Tachycardia GI/Abdominal: Soft, Non-Tender (Male) Exam: Urethral Discharge, Other (Hernandez catheter is in place appears to have pus draining from around the catheter). No: Circumcised Course - Vital Signs Last Recorded V/S: Last Vital Signs Temp 98.1 F 01/20/21 09:30 Pulse 75 01/20/21 10:55 Resp 26 H 01/20/21 10:55 BP 113/65 01/20/21 10:55 Pulse Ox 91 L 01/20/21 10:55 - Orders/Labs/Meds Orders: Active Orders 24 hr Category Date Time Status Vital Signs [RC] Q1H Care 01/20/21 09:59 Active CULTURE BLOOD [BC] Urgent Lab 01/20/21 10:10 Received CULTURE BLOOD [BC] Urgent Lab 01/20/21 10:15 Received Heparin Sodium/D5W [Heparin 25,000 Units in D5W 500 ML] Med 01/20/21 14:30 Active 25,000 units in 500 ml IV TITRATE Iopamidol [Isovue-370 (76%)] Med 01/20/21 13:15 Active 100 ml IV . DIRECTED Lactated Ringers [Ringers, Lactated] 1,000 ml Med 01/20/21 10:00 Active IV ASDIRECTED Piperacillin/Tazobactam/Dext [Zosyn in Dextrose Iso- Med 01/20/21 10:00 Active Osmotic 3.375 GM/50 ML] 3.375 gm Premix Bag 1 bag IV Q6H Sodium Chloride 0.9% [Normal Saline] 80 ml Med 01/20/21 13:15 Active IV ASDIRECTED Blood Culture x2 Reflex Set [OM.PC] Urgent Oth 01/20/21 09:59 Ordered Isolation [COMM] Stat Oth 01/20/21 10:03 Ordered Medication Orders Lactated Ringer's (Ringers, Lactated) 1,000 mls @ 999 mls/hr IV ASDIRECTED JOHN Last Admin: 01/20/21 10:12 Dose: 999 mls/hr Documented by: JAIRO Piperacillin/Tazobactam/ (Dextrose 3.375 gm/ Premix) 50 mls @ 100 mls/hr IV Q6H JOHN Last Admin: 01/20/21 10:20 Dose: 100 mls/hr Documented by: JAIRO Sodium Chloride (Normal Saline) 80 mls @ 3 mls/sec IV ASDIRECTED JOHN Stop: 01/20/21 18:00 Last Admin: 01/20/21 13:25 Dose: 3 mls/sec Documented by: ARABELLA Heparin Sodium/Dextrose (Heparin 25,000 Units In D5w 500 Ml) 25,000 units in 500 mls @ 44.089 mls/hr IV TITRATE JOHN; Protocol Iopamidol (Iopamidol 755 Mg/Ml 100 Ml Bottle) 100 ml IV . DIRECTED JOHN Last Admin: 01/20/21 13:24 Dose: 100 ml Documented by: ARABELLA Labs: Laboratory Tests 01/20/21 01/20/21 01/20/21 Range/Units 09:59 10:10 10:10 WBC 14.9 H (4.5-11.0) K/uL RBC 5.91 H (4.30-5.90) M/uL Hgb 16.5 H (12.0-15.0) g/dL Hct 50.4 (40.0-54.0) % MCV 85 (80-98) fL MCH 28 (27-31) pg MCHC 33 (32-36) % Plt Count 171 (150-400) K/uL Neut % (Auto) 84.3 H (36-66) % Lymph % (Auto) 6.2 L (24-44) % [place] % (Auto) 8.7 H (2-6) % Eos % (Auto) 0.7 L (2-4) % Baso % (Auto) 0.1 (0-1) % Sodium 137 L (140-148) mmol/L Potassium 4.2 (3.6-5.2) mmol/L Chloride 101 (100-108) mmol/L Carbon Dioxide 29 (21-32) mmol/L Anion Gap 11.2 (5.0-14.0) mmol/L BUN 22 H (7-18) mg/dL Creatinine 1.0 (0.8-1.3) mg/dL Est Cr Clr Drug Dosing 58.92 mL/min Estimated GFR (MDRD) > 60 (>60) Glucose 164 H (74-106) mg/dL Lactic Acid 1.6 (0.4-2.0) mmol/L Calcium 8.7 (8.5-10.1) mg/dL Total Bilirubin 1.1 H (0.2-1.0) mg/dL AST 28 (15-37) U/L ALT 39 (12-78) U/L Alkaline Phosphatase 75 (46-116) U/L C-Reactive Protein 8.97 H (0.0-0.3) mg/dL Total Protein 7.0 (6.4-8.2) g/dL Albumin 2.5 L (3.4-5.0) g/dL Globulin 4.5 H (2.3-3.5) g/dL Albumin/Globulin Ratio 0.6 L (1.2-2.2) Procalcitonin ng/mL Urine Color (YELLOW) Urine Appearance (CLEAR) Urine pH (5.0-8.0) Ur Specific [place] (1.008-1.030) Urine Protein (NEGATIVE) mg/dL Urine Glucose (UA) (NEGATIVE) mg/dL Urine Ketones (NEGATIVE) mg/dL Urine Occult Blood (NEGATIVE) Urine Nitrite (NEGATIVE) Urine Bilirubin (NEGATIVE) Urine Urobilinogen (0.2-1.0) EU/dL Ur Leukocyte Esterase (NEGATIVE) Urine RBC (0-5) Urine WBC (0-5) Ur Epithelial Cells Amorphous Sediment Urine Bacteria Urine Mucus Influenza Type A RNA (NEGATIVE) RSV RNA (INAAT) (NEGATIVE) Influenza Type B RNA (NEGATIVE) SARS-CoV-2 RNA (CHRIS) (NEGATIVE) 01/20/21 01/20/21 01/20/21 Range/Units 10:10 10:43 10:43 WBC (4.5-11.0) K/uL RBC (4.30-5.90) M/uL Hgb (12.0-15.0) g/dL Hct (40.0-54.0) % MCV (80-98) fL MCH (27-31) pg MCHC (32-36) % Plt Count (150-400) K/uL Neut % (Auto) (36-66) % Lymph % (Auto) (24-44) % [place] % (Auto) (2-6) % Eos % (Auto) (2-4) % Baso % (Auto) (0-1) % Sodium (140-148) mmol/L Potassium (3.6-5.2) mmol/L Chloride (100-108) mmol/L Carbon Dioxide (21-32) mmol/L Anion Gap (5.0-14.0) mmol/L BUN (7-18) mg/dL Creatinine (0.8-1.3) mg/dL Est Cr Clr Drug Dosing mL/min Estimated GFR (MDRD) (>60) Glucose (74-106) mg/dL Lactic Acid (0.4-2.0) mmol/L Calcium (8.5-10.1) mg/dL Total Bilirubin (0.2-1.0) mg/dL AST (15-37) U/L ALT (12-78) U/L Alkaline Phosphatase (46-116) U/L C-Reactive Protein (0.0-0.3) mg/dL Total Protein (6.4-8.2) g/dL Albumin (3.4-5.0) g/dL Globulin (2.3-3.5) g/dL Albumin/Globulin Ratio (1.2-2.2) Procalcitonin 0.07 ng/mL Urine Color Yellow (YELLOW) Urine Appearance Clear (CLEAR) Urine pH 6.0 (5.0-8.0) Ur Specific [place] 1.020 (1.008-1.030) Urine Protein 30 H (NEGATIVE) mg/dL Urine Glucose (UA) Negative (NEGATIVE) mg/dL Urine Ketones Negative (NEGATIVE) mg/dL Urine Occult Blood Moderate H (NEGATIVE) Urine Nitrite Negative (NEGATIVE) Urine Bilirubin Negative (NEGATIVE) Urine Urobilinogen 0.2 (0.2-1.0) EU/dL Ur Leukocyte Esterase Negative (NEGATIVE) Urine RBC 30-40 H (0-5) Urine WBC 0-5 (0-5) Ur Epithelial Cells Rare Amorphous Sediment Not seen Urine Bacteria Not seen Urine Mucus Not seen Influenza Type A RNA Negative (NEGATIVE) RSV RNA (INAAT) Negative (NEGATIVE) Influenza Type B RNA Negative (NEGATIVE) SARS-CoV-2 RNA (CHRIS) Negative (NEGATIVE) Meds: Medications Generic Name Dose Route Start Last Admin Trade Name Freq PRN Reason Stop Dose Admin Lactated Ringer's 1,000 mls @ 999 mls/hr 01/20/21 10:00 01/20/21 10:12 Ringers, Lactated IV 999 mls/hr ASDIRECTED JOHN Administration Piperacillin/Tazobactam/ 50 mls @ 100 mls/hr 01/20/21 10:00 01/20/21 10:20 Dextrose 3.375 gm/ Premix IV 100 mls/hr Q6H JOHN Administration Sodium Chloride 80 mls @ 3 mls/sec 01/20/21 13:15 01/20/21 13:25 Normal Saline IV 01/20/21 18:00 3 mls/sec ASDIRECTED JOHN Administration Heparin Sodium/Dextrose 25,000 units in 500 mls @ 44.089 mls/hr 01/20/21 14:30 Heparin 25,000 Units In D5w 500 Ml IV TITRATE JOHN Protocol 18 UNITS/KG/HR Iopamidol 100 ml 01/20/21 13:15 01/20/21 13:24 Iopamidol 755 Mg/Ml 100 Ml Bottle IV 100 ml . DIRECTED JOHN Administration Discontinued Medications Generic Name Dose Route Start Last Admin Trade Name Freq PRN Reason Stop Dose Admin Heparin Sodium (Porcine) 5,000 units 01/20/21 14:18 Heparin Sodium 5,000 Units/Ml Vial IVPUSH 01/20/21 14:19 ONETIME ONE Piperacillin Sod/Tazobactam 50 mls @ 100 mls/hr 01/20/21 10:00 Sod 3.375 gm/ Sodium Chloride IV Q6H JOHN Vancomycin HCl 1.75 gm/ Sodium 250 mls @ 165 mls/hr 01/20/21 11:00 01/20/21 10:44 Chloride IV 01/20/21 12:30 165 mls/hr ONETIME ONE Administration Sodium Chloride 10 ml 01/20/21 13:06 01/20/21 13:25 Sodium Chloride 0.9% 10 Ml Syringe FLUSH 01/20/21 13:07 10 ml ONETIME ONE Administration Warfarin Sodium 10 mg 01/20/21 14:18 Warfarin 5 Mg Tab PO 01/20/21 14:19 ONETIME ONE Departure - Departure Time of Disposition: 15:00 Disposition: Home, Self-Care 01 Condition: Critical Clinical Impression: Bilateral pulmonary embolism, Hospice care - Discharge Information Instructions: Hospice, End-of-Life Care, Pulmonary Embolism Referrals: Bernadette Walton MD [Primary Care Provider] - Forms: ED Department Discharge Additional Instructions: The hospice physician and hospice nurse will contact you tomorrow Sepsis Event Note (ED) - Evaluation Sepsis Screening Result: Possible Sepsis Risk - Focused Exam Vital Signs: Vital Signs Temp Pulse Resp BP Pulse Ox 01/20/21 10:55 75 26 H 113/65 91 L 01/20/21 09:30 98.1 F 109 H 31 H 101/40 L 87 L 01/20/21 09:26 98.1 F 109 H 31 H 101/40 L 87 L - My Orders Last 24 Hours: My Active Orders 01/20/21 09:59 Vital Signs [RC] Q1H Blood Culture x2 Reflex Set [OM.PC] Urgent 01/20/21 10:00 Lactated Ringers [Ringers, Lactated] 1,000 ml IV ASDIRECTED Piperacillin/Tazobactam/Dext [Zosyn in Dextrose Iso-Osmotic 3.375 GM/50 ML] 3.375 gm Premix Bag 1 bag IV Q6H 01/20/21 10:03 Isolation [COMM] Stat 01/20/21 10:10 CULTURE BLOOD [BC] Urgent 01/20/21 10:15 CULTURE BLOOD [BC] Urgent 01/20/21 13:15 Iopamidol [Isovue-370 (76%)] 100 ml IV . DIRECTED Sodium Chloride 0.9% [Normal Saline] 80 ml IV ASDIRECTED 01/20/21 14:30 Heparin Sodium/D5W [Heparin 25,000 Units in D5W 500 ML] 25,000 units in 500 ml IV TITRATE - Assessment/Plan Last 24 Hours: My Active Orders 01/20/21 09:59 Vital Signs [RC] Q1H Blood Culture x2 Reflex Set [OM.PC] Urgent 01/20/21 10:00 Lactated Ringers [Ringers, Lactated] 1,000 ml IV ASDIRECTED Piperacillin/Tazobactam/Dext [Zosyn in Dextrose Iso-Osmotic 3.375 GM/50 ML] 3.375 gm Premix Bag 1 bag IV Q6H 01/20/21 10:03 Isolation [COMM] Stat 01/20/21 10:10 CULTURE BLOOD [BC] Urgent 01/20/21 10:15 CULTURE BLOOD [BC] Urgent 01/20/21 13:15 Iopamidol [Isovue-370 (76%)] 100 ml IV . DIRECTED Sodium Chloride 0.9% [Normal Saline] 80 ml IV ASDIRECTED 01/20/21 14:30 Heparin Sodium/D5W [Heparin 25,000 Units in D5W 500 ML] 25,000 units in 500 ml IV TITRATE Plan: Assessment Acuity = acute Site and laterality = bilateral pulmonary embolism Etiology = multifactorial Manifestations = hypoxia Location of injury = Home Lab values = WBC elevated 14.9 consistent leukocytosis, lactic acid normal 1.6 CRP elevated 8.97 urinalysis reveals 30-40 RBCs consistent with a hematuria Covid was negative influenza AMB negative RSV negative CT scan of the chest describes the pulmonary embolism above Plan I did offer hospital admission and treatment however they declined they would like to go home and will be enrolled in hospice tomorrow This note was dictated using [employer] voice recognition software please call with any questions on syntax or grammar.
[2021-01-20 11:10] LABS: CORONAVIRUS COVID-19 NAA NEGATIVE (NEGATIVE)
--- NOTE | 2021-01-20 11:42 | CR ---
CHEST: Portable 01/20/2021 at 10:29 AM CLINICAL HISTORY:SOB COMPARISON:11/19/2020 FINDINGS: The heart is enlarged. Pulmonary vascular areas normal. Patient has a PICC line from the right upper extremity. The tip is in the superior vena cava atrial junction. Less than optimal inspiration exaggerates lung markings. There are atherosclerotic changes in the aorta. Impression: Poor inspiratory level exaggerates the lung markings. There may be some patchy left lower lobe atelectasis or infiltrate. Cardiomegaly with normal pulmonary vascularity PICC line in good position
[2021-01-20] MEDS ORDERED: Sodium Chloride 0.9% 10 ML Syringe FLUSH ONE (13:06)
[2021-01-20] MEDS ORDERED: Iopamidol 755 Mg/ML 100 ML Bottle IV SCH (13:15)
[2021-01-20] MEDS ORDERED: Sodium Chloride 0.9% 80 ML IV SCH (13:15)
--- NOTE | 2021-01-20 13:48 | CT ---
Chest w Cont CLINICAL HISTORY: Hypoxia, left lower lobe infiltrate TECHNIQUE: Axial scans were obtained from the thoracic inlet to the lung bases following IV infusion of iodinated contrast. Auto dosage reduction and iterative reconstructrion techniques employed. COMPARISON: None. FINDINGS: Lung window images show moderate breathing motion throughout the scan. There is a left upper lobe infiltrate with some area of consolidation. There is a patchy right lower lobe infiltrate. There is a small right pleural effusion. There is a minimal left effusion.. Mediastinal window images show a moderate amount of thrombus in the right main pulmonary artery and multiple branches. There is also emboli seen in the left lower lobe pulmonary arteries There are atherosclerotic changes in the aorta.. Scans into the upper abdomen show no mass or suspicious adenopathy. IMPRESSION: Bilateral pulmonary emboli right greater than left Very limited study due to significant motion artifact. Left upper lobe infiltrate with some consolidation Right lower lobe infiltrate and/or atelectasis. There is a right pleural effusion and pulmonary infarct is not excluded
[2021-01-20] MEDS ORDERED: Heparin Sodium 5,000 Units/ML Vial IVPUSH ONE (14:18)
[2021-01-20] MEDS ORDERED: Warfarin 5 MG Tab PO ONE (14:18)
[2021-01-20] MEDS ORDERED: Heparin Sodium/D5W 25,000 UNITS/500 ML BAG IV SCH (14:30)
== END 2021-01-20 15:55 | disposition home health service (06) ==
LOC: JP.ED 09:19
DX: I26.99 Other pulmonary embolism without acute cor pulmonale (principal); I10 Essential (primary) hypertension; E78.00 Pure hypercholesterolemia, unspecified; I63.9 Cerebral infarction, unspecified; E66.9 Obesity, unspecified; Z68.36 Body mass index [BMI] 36.0-36.9, adult; Z51.5 Encounter for palliative care; Z20.822 Contact with and (suspected) exposure to COVID-19; Z88.2 Allergy status to sulfonamides; Z88.8 Allergy status to other drugs, medicaments and biological substances; Z88.5 Allergy status to narcotic agent; Z79.82 Long term (current) use of aspirin; Z79.899 Other long term (current) drug therapy
CPT/HCPCS: 0241U; 36415; 71045; 71260; 80053; 81001; 83605; 84145; 85025; 86140; 87040; 96365; 96367; 99285; J2543; J3370; J7050; J7120; Q9967